=== PATIENT | female | born 1995 | race Caucasian/White ===

== ENCOUNTER 2017-11-19 20:51 | Inpatient (IN) | payer OTHER ==
[~2017-11-19] VITALS: Ht 170.2 cm; Wt 116.4 kg
[2017-11-19] MEDS: LACTATED RINGER'S 1000ML 1,000 ML IV PRN (22:16)
[2017-11-19 22:20] VITALS: Ht 170.2 cm; Wt 116.4 kg
[2017-11-19] MEDS ORDERED: PRENTAB26 PO (22:20)
[2017-11-19 22:29] LABS: HEMATOCRIT 34.9 % (37-47); HEMOGLOBIN 12.1 g/dL (12.0-16.0); MEAN CELL VOLUME 82.9 fL (80-100); MEAN CORPUSCULAR HEMOGLOBIN 28.7 pg (25-34); MEAN CORPUSCULAR HGB CONC 34.7 g/dl (32-36); MEAN PLATELET VOLUME 10.2 fL (7.4-10.4); PLATELET COUNT 241 K/uL (130-400); RED CELL DISTRIBUTION WIDTH CV 14.2 % (11.5-14.5); RED CELL DISTRIBUTION WIDTH SD 42.7 fL (36.4-46.3); WHITE BLOOD COUNT 15.06 K/uL (4.8-10.8)
--- NOTE | 2017-11-20 00:14 | Progress Note ---
Progress Note Date of Service Nov 20, 2017. Progress Note Admit Note 20 P0000 at 41.1 weeks admitted in labor with contractions every 2-3 minutes. FHT Cat 1. Cervix 4/70/-2/posterior/vertex. SROM clear fluid GBS negative. Will admit in labor.
[2017-11-20] MEDS ORDERED: FENTANYL CITRATE INJ 50 MCG/1 ML 2 ML VIAL ONE (05:24)
[2017-11-20] MEDS ORDERED: BUPIVACAINE 0.25% 30 ML VIAL ONE (05:24)
[2017-11-20] MEDS ORDERED: EpHEDrine SULFATE INJ 50 MG/ML AMP ONE (05:24)
[2017-11-20] MEDS ORDERED: FENTANYL 2MCG/ML ROPIV 1.25MG/ML 100ML BAG EPI ONE (05:25)
[2017-11-20] MEDS ORDERED: LACTATED RINGER'S 1000ML 500 ML IV PRN ×2 (06:02→07:25)
[2017-11-20] MEDS ORDERED: NALOXONE HCL INJ 1 MG in SODIUM CHLORIDE 0.9% 1000ML 1,000 ML IV PRN (06:02)
[2017-11-20] MEDS: LACTATED RINGER'S 1000ML 1,000 ML IV SCH ×2 (06:13→09:50)
[2017-11-20] MEDS: LACTATED RINGER'S 1000ML 1,000 ML IV PRN (06:13)
[2017-11-20] MEDS ORDERED: EpHEDrine SULFATE INJ 50 MG/ML AMP IV PRN (06:15)
[2017-11-20] MEDS ORDERED: ONDANSETRON INJ 2 MG/ML 2 ML VIAL IV PRN (06:15)
[2017-11-20] MEDS ORDERED: NALOXONE HCL INJ 0.4 MG/1 ML VIAL/CARP IV PRN (06:15)
[2017-11-20] MEDS ORDERED: NALBUPHINE HCL INJ 10 MG/ML AMP IV PRN (06:15)
[2017-11-20] MEDS ORDERED: PROMETHAZINE HCL INJ 25 MG in SODIUM CHLORIDE 0.9% 50ML 50 ML IV PRN (06:15)
[2017-11-20] MEDS ORDERED: DiphenhydrAMINE HCL 50 MG/ML VIAL IV PRN (06:15)
[2017-11-20] MEDS: FENTANYL 2MCG/ML ROPIV 1.25MG/ML 100ML BAG EPI PRN ×2 (07:08→14:34)
[2017-11-20] MEDS ORDERED: OXYTOCIN 30 UNITS/500ML NSS IV PRN ×2 (07:30→15:30)
[2017-11-20] MEDS ORDERED: CEFAZOLIN IV 2,000 MG in SYRINGE 0 ML IV SCH (12:00)
[2017-11-20] MEDS ORDERED: METHYLERGONOVINE MALEATE 0.2 MG/ML AMP ONE (14:40)
[2017-11-20] MEDS ORDERED: DIPHTHERIA/TETANUS/PERTUSSIS 0.5 ML SYR/VIAL IM. ONE (15:30)
[2017-11-20] MEDS ORDERED: OXYCODONE/ACETAMINOPHEN 5-325 TAB PO PRN (15:30)
[2017-11-20] MEDS ORDERED: HYDROCORTISONE ACETATE 25 MG SUPP PR PRN (15:30)
[2017-11-20] MEDS ORDERED: BENZOCAINE 20% AER SPR 82.5 GM CAN EXT PRN (15:30)
[2017-11-20] MEDS ORDERED: METHYLERGONOVINE MALEATE 0.2 MG/ML AMP IM ONE (15:30)
[2017-11-20] MEDS ORDERED: ACETAMINOPHEN 325 MG TAB PO PRN (15:30)
[2017-11-20] MEDS ORDERED: LANOLIN OINT EXT PRN (15:30)
[2017-11-20] MEDS ORDERED: SUPERCREAM 0.870 % 15GM JAR EXT PRN (15:30)
--- NOTE | 2017-11-20 16:31 | DELIVERY SUMMARY ---
DATE OF OPERATION: 11/20/2017 TIME OF DELIVERY: 14:46 DELIVERY OF PLACENTA: 14:50 DELIVERY NOTE: The patient is a 22-year-old 1 para 0 at 40 weeks gestation, who was admitted to labor and delivery on the evening of 11/19/2017 with spontaneous rupture of membranes that occurred at 08:20 p.m. Clear amniotic fluid was noted. She received an epidural for anesthesia. Oxytocin per protocol was used for labor augmentation. She reached complete dilation at 12:52 and pushed to delivery at 14:46. She delivered a viable female infant in the left occiput anterior position to an intact perineum. The baby was delivered and placed on patient's abdomen. Cord was clamped x2 and cut. Apgars were 9 at 1 minute and 9 at 5 minutes. Please see nursing notes for further baby assessment. Cord blood was then obtained and intact placenta with 3-vessel cord was delivered at 14:50. Oxytocin infusion was then begun. The lower uterine segment and vagina were cleared of any blood clots and debris. Due to more bleeding than expected, she was given Methergine 0.2 mg IM with excellent hemostasis noted. Once hemostasis was achieved, exploration of the perineum noted a second degree perineal laceration which was repaired with 2-0 and 3-0 Vicryl sutures in layers. Extremity hemostasis was noted. No other lacerations were seen. Estimated blood loss was 350 mL. All sponge, instrument and needle counts were found to be correct x2. Both patient and baby tolerated the delivery well and were in recovery with stable vital signs. I attest to the content of the Intraoperative Record and any orders documented therein. Any exception s are noted below.
--- NOTE | 2017-11-20 16:37 | Anesthesia Procedure Note ---
Anesthesia Epidural Removal Nt Date & Time Nov 20, 2017 at 16:36 Vital Signs Pain Intensity: 0.0 Notes Mental Status: alert / awake / arousable, participated in evaluation Nausea / Vomiting: adequately controlled Pain: adequately controlled Airway Patency, RR, SpO2: stable & adequate BP & HR: stable & adequate Hydration State: stable & adequate Neuraxial Anesthesia: was administered, sensory block is resolving Anesthetic Complications: no major complications apparent, pt satisfied with anesthetic care Epidural: removed without complications, with tip intact
[2017-11-20 18:10] VITALS: BP 131/87; PULSE 118; TEMP 36.5; O2SAT 97
[2017-11-20 19:45] VITALS: BP 133/85; PULSE 100; TEMP 37.1; O2SAT 98
[2017-11-20] MEDS: DOCUSATE SODIUM 100 MG CAP PO SCH (19:59)
[2017-11-21 00:35] VITALS: BP 128/81; PULSE 108; TEMP 36.5; O2SAT 97
[2017-11-21 04:30] VITALS: BP 132/79; PULSE 95; TEMP 36.4; O2SAT 98
[2017-11-21] MEDS: IBUPROFEN 600 MG TAB PO PRN ×3 (04:55→23:57)
[2017-11-21 06:35] LABS: HEMATOCRIT 33.6 % (37-47); HEMOGLOBIN 11.7 g/dL (12.0-16.0)
[2017-11-21] MEDS ORDERED: PRENATAL VITAMIN TAB PO SCH (08:00)
[2017-11-21 08:25] VITALS: BP 115/75; PULSE 99; TEMP 36.7; O2SAT 98
[2017-11-21] MEDS: PRENATAL VITAMIN TAB PO SCH (08:48)
[2017-11-21] MEDS: FERROUS SULFATE 325 MG TAB PO SCH (08:48)
[2017-11-21] MEDS: DOCUSATE SODIUM 100 MG CAP PO SCH ×2 (08:49→20:24)
--- NOTE | 2017-11-21 09:03 | OB/GYN Progress Note ---
POTATO LOADER Progress Note Date of Service: Nov 21, 2017. Patient is seen and examined. She feels well, no complaints. Ambulating without dizziness Voiding without difficulty Tolerating regular diet with out N&V Bleeding is minimal No fever/ chills/ CP/ SOB/ N&V/ Leg pain Breast feeding without problems Date Time Temp Pulse Resp B/P (MAP) Pulse Ox O2 Delivery O2 Flow Rate FiO2 11/21/17 04:30 36.4 95 18 132/79 (96) 98 Room Air 11/21/17 00:35 97 Room Air 11/21/17 00:35 36.5 108 20 128/81 (97) 97 Room Air 11/20/17 19:45 37.1 100 20 133/85 (101) 98 Room Air 11/20/17 18:10 36.5 118 20 131/87 (102) 97 Room Air 11/20/17 18:10 Room Air Last 24 Hours Test 11/21/17 06:07 Hemoglobin 11.7 g/dL Hematocrit 33.6 % PE: General: Alert, orientedx3, NAD Abd: soft, NT, fundus firm, below Umbilicus Perineum intact, Lochia rubra minimal Ext; NT, no edema AP: 22 yo s/p , ppd# 1 VSS Afebrile doing well Continue routine care All questions were answered
[2017-11-21 13:20] VITALS: BP 132/85; PULSE 108; TEMP 36.5; O2SAT 98
[2017-11-21 16:00] VITALS: BP 117/79; PULSE 101; TEMP 36.9
[2017-11-21] MEDS ORDERED: BISACODYL 5 MG TABEC PO SCH (20:00)
[2017-11-22] VITALS: BP 136/80
[2017-11-22 06:38] LABS: BASO % 0.1 %; BASO ABS # 0.02 K/uL (0-0.2); EOS % 2.5 %; EOS ABS # 0.35 K/uL (0-0.5); HEMATOCRIT 29.8 % (37-47); HEMOGLOBIN 10.1 g/dL (12.0-16.0); IG# 0.19 K/uL (0.00-0.02); LYMPH % 24.5 %; LYMPH ABS # 3.41 K/uL (1.2-3.4); MEAN CELL VOLUME 84.7 fL (80-100); MEAN CORPUSCULAR HEMOGLOBIN 28.7 pg (25-34); MEAN CORPUSCULAR HGB CONC 33.9 g/dl (32-36); MEAN PLATELET VOLUME 9.7 fL (7.4-10.4); MONO % 8.7 %; MONO ABS # 1.21 K/uL (0.11-0.59); NEUT % 62.8 %; NEUT ABS # 8.72 K/uL (1.4-6.5); PLATELET COUNT 238 K/uL (130-400); RED CELL DISTRIBUTION WIDTH CV 14.6 % (11.5-14.5); RED CELL DISTRIBUTION WIDTH SD 44.6 fL (36.4-46.3)
[2017-11-22] MEDS ORDERED: BISACODYL 10 MG SUPP PR PRN (07:00)
[2017-11-22 07:20] VITALS: BP 117/73; PULSE 102; TEMP 36.5; O2SAT 98
[2017-11-22] MEDS: FERROUS SULFATE 325 MG TAB PO SCH (08:42)
[2017-11-22] MEDS: DOCUSATE SODIUM 100 MG CAP PO SCH (08:42)
[2017-11-22] MEDS: PRENATAL VITAMIN TAB PO SCH (08:42)
[2017-11-22] MEDS: IBUPROFEN 600 MG TAB PO PRN (08:43)
--- NOTE | 2017-11-22 11:31 | OB/GYN Progress Note ---
NURSING HOME ASSISTANT Progress Note Date of Service: Nov 22, 2017. Patient is seen and examined. She feels well, no complaints. Likes to be discharged. Ambulating without dizziness Voiding without difficulty Tolerating regular diet with out N&V Bleeding is minimal No fever/ chills/ CP/ SOB/ N&V/ Leg pain Breast feeding without problems Discussed contraception with patient in details. Abstinence for 6 weeks, BCP, progestin only pills, Nexplanon, IUD's, Mirena and Pargard. She likes to get Mirena Date Time Temp Pulse Resp B/P (MAP) Pulse Ox O2 Delivery O2 Flow Rate FiO2 11/22/17 07:20 Room Air 11/22/17 07:20 36.5 102 18 117/73 (88) 98 Room Air 11/22/17 00:00 18 136/80 (98) Room Air 11/22/17 00:00 Room Air 11/21/17 16:00 Room Air 11/21/17 16:00 36.9 101 20 117/79 (92) Room Air 11/21/17 13:20 36.5 108 16 132/85 (101) 98 Room Air Last 24 Hours Test 11/22/17 06:08 White Blood Count 13.90 K/uL Red Blood Count 3.52 M/uL Hemoglobin 10.1 g/dL Hematocrit 29.8 % Mean Corpuscular Volume 84.7 fL Mean Corpuscular Hemoglobin 28.7 pg Mean Corpuscular Hemoglobin Concent 33.9 g/dl Platelet Count 238 K/uL Mean Platelet Volume 9.7 fL Neutrophils (%) (Auto) 62.8 % Lymphocytes (%) (Auto) 24.5 % Monocytes (%) (Auto) 8.7 % Eosinophils (%) (Auto) 2.5 % Basophils (%) (Auto) 0.1 % Neutrophils # (Auto) 8.72 K/uL Lymphocytes # (Auto) 3.41 K/uL Monocytes # (Auto) 1.21 K/uL Eosinophils # (Auto) 0.35 K/uL Basophils # (Auto) 0.02 K/uL RDW Standard Deviation 44.6 fL RDW Coefficient of Variation 14.6 % Immature Granulocyte % (Auto) 1.4 % Immature Granulocyte # (Auto) 0.19 K/uL PE: General: Alert, orientedx3, NAD Abd: soft, NT, fundus firm, below Umbilicus Perineum intact, Lochia rubra minimal Ext; NT, no edema AP: 22 yo s/p , ppd# 2 VSS Afebrile doing well Continue routine care All questions were answered D/C home , f/u in office
--- NOTE | 2017-11-22 11:32 | Discharge Instructions ---
Discharge Instructions Date of Service Nov 22, 2017. Admission Reason for Admission: Check Rupture Discharge Discharge Diagnosis / Problem: Discharge Goals Goal(s): Routine recovery after delivery Medications Continue Dispensed Medications: lansinoh Activity Recommendations Activity Limitations: as noted below ACTIVITY RECOMMENDATIONS: * Gradual return to full activity over the next 2-3 weeks. * No lifting - nothing heavier than baby over the next 2-3 weeks. * Do not engage in vigorous exercise, sexual activity or sports until cleared by your physician. * Do not drive or operate any motorized equipment until cleared by your physician. * You may shower/bathe daily. BREAST CARE: If you are not breast feeding: * Wear a supportive bra 24 hours a day for one to two weeks. * Avoid stimulating your breasts and nipples as much as possible during the first few weeks after delivery. * When taking a shower, have the warm water hit your back, not breasts. * When your breasts feel full, apply ice packs. Usually three to four times a day helps ease the discomfort. * Take a mild pain medication (Tylenol/Motrin) when you are uncomfortable. If breast feeding: * Use breast milk to lubricate nipples. Lansinoh cream may be used for sore nipples. You do not need to remove cream prior to breast feeding. If using a different brand of cream, check the label for directions regarding removal of cream prior to nursing. * Wear a supportive bra. * If having problems with breasts or breast feeding, call a security system sales consultant or your health care provider. EPISIOTOMY CARE: After delivery, if you have an episiotomy (stitches), the following steps will ease discomfort and aid healing. * For the first 24 hours after delivery, place ice packs next to your episiotomy to help reduce swelling. * After the first 24 hour-period, sitz baths, either portable or in the tub, are suggested. A shower with a shower arm sprayed over the episiotomy may be comforting. * Arlene care should be done after each voiding and bowel movement. Squirt warm water from a plastic bottle over the perineum (region of the body between the anus and urinary opening) and pat dry. * Use Dermoplast to ease discomfort. Shake container. [place] directly over the episiotomy. * Place a Tucks on a clean sanitary pad next to your episiotomy. OVER THE COUNTER MEDICATION: * For discomfort or pain, you may use Acetaminophen (Tylenol), Ibuprofen (Advil ), or Naproxen (Aleve) following the package directions. * For constipation you may use Colace following the package directions. SPECIAL CARE INSTRUCTIONS: When you are discharged from the hospital, it is important for you to follow the instructions listed below: * During the first week at home, you should be able to care for yourself and your baby. In addition, the usual light household activities are encouraged. * Limit your activities to the way you feel. Do not try to clean the house or move furniture. Be sensible. * If you actively engage in sports and have done so up until the time of your delivery, you may resume these activities as soon as you feel able. This may take up to one month or even longer. Use good judgment. * Continue to take your vitamins for at least six weeks after the of your baby. * Your diet need not be limited unless you were on a special diet before your delivery. Breast-feeding mothers need around 2500 calories per day and at least 64-80 ounces of fluid per day (8 to 10 glasses). * You should eat foods from the four major food groups. Crash diets or fad diets are to be avoided. Eating lean meats, fresh fruits and vegetables, low-fat dairy products, high fiber foods and a regular exercise program, will help you get back to your pre- weight without putting your health at risk. * Constipation is sometimes a problem after delivery. Take a mild laxative as needed. If breast feeding, Milk of Magnesia is acceptable to use. You may use a suppository or Fleets enema if no episiotomy. * A daily shower or tub bath is suggested. Be sure to thoroughly and gently dry the perineum. * A bloody vaginal discharge will usually continue until around four weeks post . A small amount of bleeding may continue for as long as six weeks. Vaginal discharge changes from the bright red bleeding after delivery to pink then brownish and finally yellowish-pink before becoming white and disappearing. * Bleeding may increase with activity. Your first period may come in 4-8 weeks. If you are breast feeding, your period may be delayed even longer. * Noble (sex) can begin whenever both you and your partner feel comfortable and do not have any form of genital infection. It is recommended that you wait until after your return appointment and discuss with your physician. If you have questions, please talk to your health care practitioner. A condom should be used to prevent infection and . * Foreplay, gentle intercourse and lubrication is very important the first several times to prevent pain. A water-based lubricant such as K-Y jelly or Astroglide may be used. * Tampons may be used six weeks after delivery. * Douching should be avoided for 6 weeks after delivery. * If you have RH negative blood and your baby is RH positive, you will receive RHOGAM by injection prior to discharge. The nurse will give you a card to keep with you that has the date and place that you received RHOGAM after delivery. * During your care, you had a Rubella screen done to check for the presence of rubella antibodies in your blood. If your test was negative, you will receive a Rubella vaccine prior to discharge. This vaccine may cause a fever, soreness at the injection site and flu-like symptoms. If these symptoms persist, notify your health care practitioner. is not advised for three months after a Rubella vaccine. There is a higher chance of having a baby with defects if conceived within three months of getting the vaccine. * If you were discharged 24 hours from delivery or before 48 hours: Visiting nurses will come to your home 48 hours after discharge to assess you and your baby. The visiting nurse will meet with you while you are in the hospital to arrange a time and get directions to your home. * Verbalizes understanding of car seat law as reviewed with patient nursing. * Car Seat hand-out given and reviewed with patient by nursing. * Shaken baby information reviewed with patient by nursing. Call you doctor if: * Heavy bleeding (saturating several pads an hour) or passing clots the size of your fist. * A fever >101 degrees F (38.3 degrees C) on two occasions four hours apart and/or chills. * Unusual pain in the pelvic or vaginal areas. * "Baby Blues" lasting longer than two weeks. If you have any questions or concerns, call your health care practitioner at . FOLLOW-UP VISIT: * Please call the office at to schedule a 6 week examination. It is important you keep this appointment. * It is important for you to make arrangements for either yearly or twice yearly check-ups thereafter. . Current Hospital Diet Patient's current hospital diet: Regular OB Diet Discharge Diet Recommended Diet: Regular Diet Pending Studies Studies pending at discharge: no Medical Emergencies . Who to Call and When: Medical Emergencies: If at any time you feel your situation is an emergency, please call 911 immediately. . Non-Emergent Contact Non-Emergency issues call your: Specialist Call Non-Emergent contact if: you have a fever, temperature is above 100.5, your pain is not controlled, your pain is worsening . . "Provider Documentation" section prepared by Nicolas Brewer. .
[2017-11-22 13:40] VITALS: BP_DIAS 73; PULSE 102; TEMP 36.5
== END 2017-11-22 13:40 | disposition home or self-care (01) | DRG 775 ==
LOC: C.LD 20:51 → C.OPB 20:51 → C.LD 21:55 → C.OPB 21:55 → C.OBG 11-20 18:55
PROVIDERS: ADMIT Obstetrics & Gynecology; ATTEND Obstetrics & Gynecology
PROC: 0KQM0ZZ Repair Perineum Muscle, Open Approach (ICD-10-PCS; principal; 2017-11-20)
PROC: 10E0XZZ Delivery of Products of Conception, External Approach (ICD-10-PCS; principal; 2017-11-20)
DX: O99.214 Obesity complicating childbirth (principal); O42.02 Full-term premature rupture of membranes, onset of labor within 24 hours of rupture; O76 Abnormality in fetal heart rate and rhythm complicating labor and delivery; O70.1 Second degree perineal laceration during delivery; Z3A.40 40 weeks gestation of pregnancy; Z37.0 Single live birth; E66.9 Obesity, unspecified

== ENCOUNTER 2023-07-29 12:08 | Inpatient (IN) ==
[2023-07-29] MEDS ORDERED: LIDOCAINE 1% LOCAL 20 ML VIAL INFIL PRN (12:14)
[2023-07-29] MEDS ORDERED: OXYTOCIN 30 UNITS/NSS 30 UNITS/500 ML BAG IV PRN ×3 (12:14→23:21)
[2023-07-29] MEDS ORDERED: FAMOTIDINE 10 MG TABLET PO PRN (12:31)
[2023-07-29] MEDS ORDERED: MECLIZINE HCL 25 MG TAB PO PRN (12:31)
--- NOTE | 2023-07-29 12:40 | History & Physical Report ---
Date of Service July 29, 2023 Assessment & Plan (1) Obesity affecting in third trimester, antepartum: Plan: 28-year-old -0-0-2 at 39 weeks of gestation presenting today for scheduled induction of labor at term for class III obesity, Vital signs stable afebrile, heart rate reassuring, GBS negative, Cervix favorable, head is engaged Plan to admit, monitor, labs, IV fluids and oxytocin per protocol, All questions were answered. (2) History of pre-eclampsia: (3) Depression during in third trimester: Admission and Anticipated Discharge Date Admission Date: July 29, 2023 History of Present Illness Primary Care Provider: Davis Gonzalez MD Patient is a 28-year-old -0-0-2 at 39 weeks of gestation who was scheduled for induction of labor for class III about obesity. She denies fever chills, chest pain shortness of breath, contractions, leakage of fluid and vaginal bleeding. She reports good movements. Her was complicated by 1) Class III obesity, 2) depression, on Celexa and stable. 3) history of preeclampsia in second , induced at 37 weeks GBS negative Allergies Allergy/AdvReac Type Severity Reaction Status Date / Time No Known Allergies Allergy NONE Verified 01/01/23 18:14 Home Medications Medication Instructions Recorded Confirmed Type famotidine 10 mg tablet (Heartburn 10 mg PO BID PRN 01/01/23 01/01/23 History Relief (famotidine)) HEARTBURN/INDIGESTION meclizine 25 mg tablet 25 mg PO TID PRN Dizziness 01/01/23 01/01/23 History sertraline 100 mg tablet 100 mg PO DAILY 01/01/23 01/01/23 History Patient History Medical History Obesity Pre-eclampsia affecting , antepartum Surgical History Hx of wisdom tooth extraction Social History Smoking Status: Never smoker Second Hand Exposure: Yes; Do You Dip or Chew Tobacco: No; Hx Alcohol Use: No Hx Substance Use: No Preferred Language: Azeri Communication Ability: Effective Specification Manager Required: No Beliefs That Will Affect Care: None marital status: Current Living Situation: Family Current Living Situation Comment: Pt lives with and daughter Feels Safe at Home: Yes Assistive Devices: None OB History Full-term 's in 2018 and 2019 by myself 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 History No history of STDs Review of Systems as per Subjective / HPI Physical Exam Constitutional: WD/WN, vitals as above well developed, well nourished, + obese and comfortable Genitourinary: normal external appearance OB Exam Abdomen: + vertex Manual OB Exam: + cervical dilation 2 cm, + cervical effacement 50% and + station -1 OB Exam Monitor Tracing: + external uterine monitor used and + ca tegory I Results & Data Vital Signs (Past 12 Hours) Vital Signs Pulse BP 07/29/23 12:21 120 H 118/69 (1) Obesity affecting in third trimester, antepartum Obesity type affecting : unspecified obesity Qualified Code(s): O99.213 - Obesity complicating , third trimester
[2023-07-29] MEDS ORDERED: BUTORPHANOL TARTRATE 1 MG/ML VIAL IV PRN (12:56)
[2023-07-29 12:57] LABS: Hematocrit (blood only) 35.4 % (37.0-47.0); Hemoglobin 11.8 g/dl (12.0-16.0); Mean Corpuscular Hemoglobin 26.6 pg (25.0-34.0); Mean Corpuscular Hgb Conc 33.3 g/dL (32.0-36.0); Mean Corpuscular Volume 79.7 fL (80.0-100.0); Mean Platelet Volume 9.9 fL (9.4-12.4); Platelet Count 283 K/uL (130-400); RDW Coefficient of Variation 14.7 % (11.5-14.5); RDW Standard Deviation 42.4 fL (36.4-46.3); Red Blood Count 4.44 M/uL (4.20-5.40); White Blood Count 12.49 K/ul (4.8-10.8)
[2023-07-29 13:16] LABS: Albumin Level 3.6 gm/dl (3.4-5.0); Anion Gap 12 (3-11); Bilirubin,Total 0.3 mg/dl (0.2-1.0); Calcium 8.5 mg/dl (8.6-10.3); Carbon Dioxide 19 mmol/L (21-32); Chloride 104 mmol/L (98-107); Potassium 3.7 mmol/L (3.5-5.1); Sodium 135 mmol/L (136-145)
[2023-07-29 13:22] LABS: Alanine Aminotransferase 8 U/L (7-52); Albumin Globulin Ratio 1.1 (0.9-2); Alkaline Phosphatase 113 U/L (34-104); Aspartate Aminotransferase 6 U/L (13-39); BUN Creatinine Ratio 25.5 (10-20); Blood Urea Nitrogen 12 mg/dl (6-23); Creatinine Clr Calc Pharmacy 251.8 ml/min; Est GFR (African American) > 150.0 ml/min; Est GFR (Non-African American) 136.3 ml/min; Globulin 3.3 gm/dl (2.5-4.0); Glucose 127 mg/dl (70-99(Fasting)); Total Protein 6.9 gm/dl (6.0-8.3)
[2023-07-29] MEDS: LACTATED RINGER'S 1,000 ML IV PRN ×3 (13:25→18:46)
[2023-07-29] MEDS ORDERED: fentANYL 2 MCG/ML BUPIVacaine 0.125%-NSS 100ML BAG ONE (17:33)
[2023-07-29] MEDS ORDERED: ePHEDrine sulfate 50 MG/ML AMP ONE (17:33)
[2023-07-29] MEDS ORDERED: fentaNYL citrate PF 100 MCG/2 ML VIAL ONE (17:33)
[2023-07-29] MEDS ORDERED: SODIUM CHLORIDE 0.9% PF INJ 10 ML VIAL ONE (17:34)
[2023-07-29] MEDS ORDERED: BUPIVACAINE 0.25% PF 30 ML VIAL ONE (17:34)
[2023-07-29] MEDS ORDERED: LIDOCAINE 2%/EPINEPHRINE 1:200,000 20 ML PF ONE (17:34)
--- NOTE | 2023-07-29 17:53 | Anesthesiology Consultation ---
Date of Service July 29, 2023 Assessment & Plan Chart Review Chart Review: Acceptable Risk for Labor Epidural Consults Requested none History Height/Weight Height: 5 ft 7 in Weight: 127.459 kg Allergies Allergy/AdvReac Type Severity Reaction Status Date / Time No Known Allergies Allergy NONE Verified 07/29/23 12:42 Medications Home Medications Medication Instructions Recorded Confirmed Last Taken famotidine 10 mg tablet (Heartburn 10 mg PO BID PRN 01/01/23 07/29/23 07/27/23 Relief (famotidine)) HEARTBURN/INDIGESTION meclizine 25 mg tablet 25 mg PO TID PRN Dizziness 01/01/23 07/29/23 Unknown sertraline 100 mg tablet 100 mg PO DAILY 01/01/23 07/29/23 07/28/23 Active Medications Generic Name Dose Route Start Last Admin Trade Name Freq PRN Reason Stop Dose Admin Lactated Ringer's 1,000 mls @ 150 mls/hr 07/29/23 12:14 07/29/23 17:46 Lr IV 07/31/23 12:13 999 mls/hr .[id number] PRN Administration L&D Protocol Protocol Oxytocin 30 units in 500 mls @ 8 mls/hr 07/29/23 12:16 07/29/23 16:50 Pitocin 30 Units/Nss IV 07/31/23 12:15 0.48 units/hr .Q24H PRN 8 mls/hr Labor Induction/Augmentation Titration Protocol 0.48 UNITS/HR Past Medical History Medical History (Updated 07/29/23 @ 12:41 by Humaira Mireles RN) Depression with hx of self harm (as teenager) on medications currently Obesity Pre-eclampsia affecting , antepartum Past Surgical History Surgical History Hx of wisdom tooth extraction Social History Smoking Status: Never smoker Do You Dip or Chew Tobacco: No Hx Alcohol Use: No Hx Substance Use: No substance use type: does not use Review of Systems Constitutional: as per Subjective / HPI Physical Exam Vital Signs Last Vital Signs Temp 36.8 C 07/29/23 15:10 Pulse 106 H 07/29/23 17:30 Resp 20 07/29/23 15:10 BP 124/69 07/29/23 17:30 Constitutional WD/WN, vitals as above well developed, well nourished, + obese and comfortable Genitourinary normal external appearance OB Exam Abdomen: + vertex Manual OB Exam: + cervical dilation + 2 cm, + cervical effacement + 50% and + station + -1 OB Exam Monitor Tracing: + external uterine monitor used and + category I Testing Laboratory Results 07/29/23 12:38 07/29/23 12:38 Blood Type O Positive 07/29/23 12:38 Antibody Screen NEGATIVE 07/29/23 12:38
[2023-07-29] MEDS ORDERED: LIDOCAINE 2%/EPINEPHRINE 1:200,000 20 ML PF EPI STA (17:57)
[2023-07-29] MEDS ORDERED: BUPIVACAINE 0.25% PF 30 ML VIAL EPI PRN (17:57)
[2023-07-29] MEDS ORDERED: LIDOCAINE 2% MPF LOCAL 5 ML VIAL EPI PRN (17:57)
[2023-07-29] MEDS ORDERED: NALBUPHINE HCL 5 MG in SYRINGE 0 ML IV PRN (17:57)
[2023-07-29] MEDS ORDERED: SODIUM CHLORIDE 0.9% PF INJ 10 ML VIAL EPI STA (17:57)
[2023-07-29] MEDS ORDERED: NALOXONE HCL 1 MG in SODIUM CHLORIDE 0.9% 1,000 ML IV PRN (17:57)
[2023-07-29] MEDS ORDERED: fentaNYL citrate PF 100 MCG/2 ML VIAL EPI STA (17:57)
[2023-07-29] MEDS ORDERED: NALOXONE HCL 0.4 MG/1 ML VIAL/CARP IV PRN (17:57)
[2023-07-29] MEDS ORDERED: fentaNYL citrate PF 100 MCG/2 ML VIAL EPI PRN (17:57)
[2023-07-29] MEDS ORDERED: fentANYL 2 MCG/ML BUPIVacaine 0.125%-NSS 100ML BAG EPI PRN (17:57)
[2023-07-29] MEDS ORDERED: ePHEDrine sulfate 50 MG/ML AMP IV PRN (17:57)
[2023-07-29] MEDS ORDERED: diphenhydrAMINE 50 MG/ML VIAL IV PRN (17:57)
[2023-07-29] MEDS ORDERED: SODIUM CHLORIDE 0.9% PF INJ 10 ML VIAL EPI PRN (17:57)
[2023-07-29] MEDS ORDERED: BUPIVACAINE 0.25% PF 30 ML VIAL EPI STA (17:57)
[2023-07-29] MEDS ORDERED: ROPIVACAINE 0.5% PF 5 MG/ML 20 ML VIAL EPI PRN (17:57)
--- NOTE | 2023-07-29 19:09 | Obstetrical Progress Note ---
Date of Service July 29, 2023 Assessment & Plan Admission and Anticipated Discharge Date Admission Date: July 29, 2023 Subjective Patient has received epidural for pain and now comfortable. VE; 4/ 50%/-1, AROM'ed clear fluid FHR categ I [place] ctxs q 2-4 min, Oxytocin is at 10 miu/min Continue to monitor closely. Results & Data Vital Signs (Past 12 Hours) Vital Signs Temp Pulse Resp BP Pulse Ox 07/29/23 19:04 104 H 106/53 L 07/29/23 19:03 104 H 99 07/29/23 19:02 94 H 116/56 L 07/29/23 19:00 103 H 112/55 L 07/29/23 18:58 98 07/29/23 18:58 99 H 07/29/23 18:58 94 H 113/58 L 07/29/23 18:56 96 H 115/59 L 07/29/23 18:54 96 H 114/58 L 07/29/23 18:53 95 H 98 07/29/23 18:52 97 H 113/59 L 07/29/23 18:50 96 H 113/59 L 07/29/23 18:48 98 07/29/23 18:48 98 H 07/29/23 18:48 100 H 108/58 L 07/29/23 18:46 102 H 106/55 L 07/29/23 18:44 99 H 107/58 L 07/29/23 18:43 101 H 98 07/29/23 18:42 95 H 101/55 L 07/29/23 18:40 99 H 105/59 L 07/29/23 18:38 102 H 109/55 L 99 07/29/23 18:36 99 H 107/58 L 07/29/23 18:34 94 H 109/56 L 07/29/23 18:33 97 H 99 07/29/23 18:32 96 H 102/55 L 07/29/23 18:30 20 07/29/23 18:30 104 H 107/56 L 07/29/23 18:28 99 07/29/23 18:28 109 H 07/29/23 18:28 104 H 106/59 L 07/29/23 18:26 92 H 112/59 L 07/29/23 18:24 100 H 109/55 L 07/29/23 18:23 101 H 99 07/29/23 18:22 90 90/47 L 07/29/23 18:20 20 07/29/23 18:20 99 H 99/54 L 07/29/23 18:18 99 07/29/23 18:18 102 H 07/29/23 18:18 98 H 109/53 L 07/29/23 18:16 102 H 110/54 L 07/29/23 18:14 101 H 122/58 L 07/29/23 18:13 105 H 100 07/29/23 18:08 103 H 99 07/29/23 18:03 93 H 100 07/29/23 17:58 95 H 99 07/29/23 17:53 94 H 99 07/29/23 17:30 106 H 124/69 07/29/23 16:30 96 H 137/60 07/29/23 15:29 100 H 113/59 L 07/29/23 15:10 36.8 C 20 07/29/23 14:29 102 H 119/66 07/29/23 13:29 109 H 123/58 L 07/29/23 12:24 36.5 C 20 07/29/23 12:21 120 H 118/69
--- OUTSIDE RECORDS SUMMARY | 2023-07-29 20:47 | External Medical Summary | Summary of Care ---
Author Name Unknown Organization [facility] Address [address] [place] [address] Phone [phone] Care Team Providers Care Center Machine Operator Name Role Phone Unavailable Primary Care Provider Unavailabl e Reason for Visit * Reason Comments Non Stress Test Return Visit Encounter Details Date Type Department Care Team (Late st Contact Info) Description 07/24/2023 11:00 AM EST Office Visit Gynecology/Obstetric s Sohail'scout Boyer [address] [facility] [place] [address] Flavio Rodriguez MD [address] [place] [address] Boyer, Non Stress Tests Ever [address] [employer] [place] [address] Obesity affecting , antepartum, unspecified obesity type*; Supervision of high risk in third trimester; Depression complicating , antepartum; History of pre-eclampsia; Family history of defect Allergies No known active allergiesdocumented as of this encounter (statuses as of 07/24/2023) Medications Medication Sig Dispensed Refills Start Date End Date Status Sertraline HCl 100 MG Oral Tablet Take 1 Tablet by mouth in the morning. 0 Active Famotidine 10 MG OR TABS Take 0.5 Tablets by mouth in the morning and 0.5 Tablets before bedtime. 0 Active Meclizine HCl 12.5 MG Oral Tablet (Antivert) Take 1 Tablet by mouth 3 times a day as needed. 0 Active 19 29-1 MG Oral Tablet Chewable Take by mouth. 0 Active Breast Pump Pump daily while 1 Each 0 03/18/2023 Active documented as of this encounter (statuses as of 07/24/2023) Active Problems Problem Noted Date Diagnosed Date Health counseling 01/30/2023 Overview: Problem Action Taken Date entered Entered by Date resolved Current needs or questions Patient denies having any current needs or questions 01/30/2023 Shanelle Cheney RN 01/30/2023 Problem Action Taken Date entered Entered by Date resolved Current needs or questions Patient denies having any current needs or questions 02/27/2023 Shanelle Cheney RN 02/27/2023 Problem Action Taken Date entered Entered by Date resolved Need for baby supplies breast pump order sent 03/18/2023 Shanelle Cheney RN 03/18/2023 Problem Action Taken Date entered Entered by Date resolved Current needs or questions Patient denies having any current needs or questions 05/26/2023 Shanelle Cheney RN 05/26/2023 Problem Action Taken Date entered Entered by Date resolved Current needs or questions Patient denies having any current needs or questions 06/26/2023 Shanelle Cheney RN 06/26/2023 Problem Action Taken Date entered Entered by Date resolved Current needs or questions Patient denies having any current needs or questions 07/10/2023 Shanelle Cheney RN 07/10/2023 Problem Action Taken Date entered Entered by Date resolved Current needs or questions Patient denies having any current needs or questions 07/17/2023 Shanelle Cheney RN 07/17/2023 Class 3 obesity 12/29/2022 History of pre-eclampsia 12/29/2022 Overview: Preeclampsia with second May 2020 Induced at 37 weeks On antihypertensive meds for 6 weeks post Taking low dose ASA 81 mg PO daily Baseline Preeclampsia Labs Lab Results Component Value Date/Time PLATELET AUTO - [facility] 343 12/29/2022 03:40 PM CREATININE - [facility] 0.6 12/29/2022 03:40 PM AST - [facility] 13 12/29/2022 03:40 PM ALT - [facility] 17 12/29/2022 03:40 PM URINE PROTEIN, 24 HOUR - [facility] 60 01/30/2023 08:36 AM URINE PROTEIN, 24HR URN - [facility] 12 01/30/2023 08:36 AM BP Readings from Last 10 Encounters: 02/27/23 118/70 01/30/23 120/74 12/29/22 120/78 05/07/21 112/78 05/03/20 156/100 04/30/20 134/76 04/26/20 128/80 04/23/20 132/86 04/18/20 124/76 04/04/20 120/80 Last Assessment & Plan: CONSIDERATIONS: Discussed that the overall recurrence rate for pre-eclampsia is 20%. The recurrence risk of pre-eclampsia is 5-7% if it was uncomplicated pre-eclampsia in the prior . If it was pre-eclampsia with severe features in the prior , the recurrence risk goes up to 30-65%. Explained to patient that risk factors for development of pre-eclampsia include the primigravid state, history of pre-eclampsia in previous , family history of pre-eclampsia, presence of chronic hypertension, increased BMI, multiple gestation, pre-existing maternal renal disease or diabetes, advanced maternal age, antiphospholipid syndrome and other coagulopathies, chronic maternal autoimmune disease, or prolonged interval between pregnancies. Discussed with patient that the risks associated with a diagnosis of pre- eclampsia which is not monitored and not managed appropriately include development of HELLP syndrome or eclampsia (seizures) and end organ damage to liver, brain, kidneys, or fetus (manifested by growth restriction or ), and even maternal . RECOMMENDATIONS: Recommend baseline pre-eclamptic labwork be done early in subsequent pregnancies to include CBC, AST/ALT, creatinine, and 24 hour total urine protein. Patients should be monitored closely in subsequent pregnancies for signs of pre-eclampsia and managed appropriately to reduce the incidence of associated maternal and risks. Reviewed that pre-eclampsia and HELLP are not preventable conditions. There is some evidence that daily ASA 81mg may decrease the risk for recurrence in patients with a history of pre-eclampsia prior to 34 weeks and we recommend that she proceed with starting this therapy after 12 weeks. Family history of defect 12/29/2022 Overview: Patient has a brother with cleft palate and cerebral palsy Last Assessment & Plan: Discussed etiology of the condition. Occurs in ~[id number] live births. Causes for cleft lip and palate include genetic syndromes, maternal exposures, multifactorial inheritance, Gurvinder-Eh sequence. May have associated anomalies in 35-65% of cases, most common may be spinal, cardiac or intracranial. About 60% are isolated. Ten percent may be chromosomal, 20% may be syndromic (>350 syndromes identified). If isolated, typically multifactorial inheritance. Maternal exposure that may play a role in development of cleft lip/palate may include ETOH, tobacco, infections, medications, or hyperthermia. Recurrence risk is 4- 6% with immediate family member with cleft lip and palate. Depression complicating , antepartum Overview: History of depression History of self harm: cutting Zoloft 100mg daily Reports a stable mood in . Denies any suicidal or homicidal ideation. Reports she has a good support system at home. Last Assessment & Plan: ANXIETY AND DEPRESSION CONSIDERATIONS: Untreated maternal anxiety and depression may be associated with an increased risk of multiple poor obstetrical outcomes including miscarriages, low weight, and delivery. Women with a history of anxiety or depression are at risk for recurrence both during and/or the period. Studies of first-trimester SSRI exposure do not demonstrate consistent data to support an increased risk for structural malformations. Anti-anxiety or depression medications have been associated with transient effects (withdrawal syndrome). RECOMMENDATIONS: Mental illness can and should be treated during when the benefits of treatment outweigh potential risks. Referral to behavioral health services as clinically indicated. Atypical squamous cells of u ndetermined significance (ASCUS) on Papanicolaou smear of cervix 10/13/2019 Overview: Pap 05/07/2021 (NILM) Pap 10/04/2019 (ASCUS, HPV+) Obesity affecting 10/04/2019 Overview: Pre gravid BMI: 44.6 Class 3 Lab Results Component Value Date/Time 50-G GESTATIONAL GLUCOSE, 1 HOUR - [facility] 154 (H) 01/30/2023 10:37 AM 100-G GESTATIONAL GLUCOSE, 1 HOUR - [facility] 134 02/06/2023 08:59 AM 100-G GESTATIONAL GLUCOSE, 2 HOUR - [facility] 112 02/06/2023 10:09 AM 100-G GESTATIONAL GLUCOSE, 3 HOUR - [facility] 99 02/06/2023 10:56 AM 100-G GESTATIONAL GLUCOSE, FASTING - [facility] 95 (H) 02/06/2023 07:56 AM Last Assessment & Plan: I reviewed the ultrasound with her. The overall estimated weight is consistent with the 20th percentile for the gestational age and the anatomy that was visualized appears unremarkable. It is limited due to the advanced gestational age. The amniotic fluid volume is normal at 12 cm fetus is in the vertex presentation. The biophysical profile is 8/8. I reviewed her negative maternal serum AFP screening and her low risk noninvasive screen in light of the normal ultrasound findings. , supervision, high-risk 10/04/2019 Overview: Flu and Tdap vaccines 05/26/23 Last Assessment & Plan: Tdap given in left deltoid today 03/05/2020. Charlotte Alba, ISAIAH Estimated Date of Delivery Comme nts Yes 08/05/2023 Based on last me nstrual period of 10/29/2022 documented as of this encounter (statuses as of 07/24/2023) Resolved Problems Problem Noted Date Diagnosed Date Resolved Date presentation, breech 06/12/2023 1 09/02/2022 Overview: 32 wks Abnormal GTT (glucose tolerance test) 02/02/2023 05/26/2023 Overview: Failed early 1 hour GTT; 3 hour GTT passed. Repeat 3 hour GTT at 28 weeks. Supervision of high-risk pre gnancy, unspecified trimester 01/02/2020 03/19/2020 Obesity in , antepartum 01/02/2020 03/19/2020 Eating disorder, unspecified 10/04/2019 04/18/2020 Overview: At age 18 patient states she was restricting food intake, she would not eat for 2-3 days at a time and then only have 1-2 bites a day after that. This continued for 4-5 months. She states since then she has periods of time when she will overeat until she feels like she needs to vomit and will eat 2-3 servings at a time. She never sought counseling during this time. Patient states she is conscious of this and eating smaller frequent meals and states she has had no episodes during this . She did not recall encountering this problem during her first . Class 2 obesity in adult 10/23/201711/2019 Overview: RECOMMENDATIONS: Class 2-BMI 35-39.9: Recommend restricting weight gain during to 11-20 pounds. Consider referral for nutrition consult. Recommend obtaining early Gestational Diabetes Mellitus screen and repeat again at 26-28 weeks if early screen is normal. Recommend Maternal Medicine ultrasound for anatomy screen at 20 weeks and for growth every 4 weeks after 24 weeks. If diagnosed with Gestational Diabetes Mellitus OR fetus is noted to be LGA, then recommend surveillance twice weekly to begin at 36 weeks and delivery by EDC. Supervision of normal first , antepartum 04/16/2017 11/20/2017 Overview: Patient received flu vaccine. 06/12/2017 Corinne Chun RN 09/25/2017 Tdap Vaccine administered per clinic protocol. Pt given VIS(vaccine information sheet) Corinne Chun RN OCP (oral contraceptive pills) initiation 04/16/2015 04/16/2017 Obesity, pediatric, BMI 95th to 98th percentile for age 0501/13/2015 10/23/2017 Anxiety state 05/06/2011 04/18/2020 documented as of this encounter (statuses as of 07/24/2023) Immunizations Name Administration Dates Next Due HPV Vaccine, 4-Valent 01/10/2015,05/29/2014,02/2014 Meningococcal Conjugate Vacc ine (Menactra/Menveo) 03/06/2014 SEASONAL INFLUENZA, PF, 6 M & Above, IM , (FLULAVAL or FLUZONE) 05/26/2023,06/12/2017 Seasonal Influenza, Split, I IV3, With Preserve, Inj 06/29/2013 TDAP (age 10 and older)(Boostrix) 2022,03/05/2020,09/25/2017,03/06 documented as of this encounter Social History Tobacco Use Types Packs/Day Years Used Date Smoking Tobacco: Former Cigarettes Q uit: 2013 Smokeless Tobacco: Never Alcohol Use Standard Drinks/Week Comments Not Currently 0 (1 standard drink = 0.6 oz pur e alcohol) PHQ-2 Answer Date Recorded PHQ-2 Score 1 04/28/2019 Hunger Vital Sign Answer Date Recorded Within the past 12 months, y ou worried that your food would run out before you got the money to buy more. Never true 12/11/19 23 Within the past 12 months, t he food you bought just didn't last and you didn't have money to get more. Never true 12/10/2022 Blanco Depression Scale Answer Date Recorded Blanco Depression Scale Total 13 06/12/2023 The thought of harming myself has occurred to me . Hardly ever 06/12/2023 Estimated Date of Delivery Comme nts Yes 08/05/2023 Based on last me nstrual period of 10/29/2022 Sex and Gender Information Value Date Recorded Sex Assigned at Female 12/10/2022 7:44 PM EDT Gender Identity Female 12/10/2022 7:44 PM EDT Sexual Orientation Bisexual 12/10/2022 7: 44 PM EDT Job Start Date Occupation Industry Not on file Not on file Not on file documented as of this encounter Last Filed Vital Signs Vital Sign Reading Time Taken Comments Blood Pressure 124/80 07/24/2023 10:54 AM EST Pulse - - Temperature - - Respiratory Rate - - Oxygen Saturation - - Inhaled Oxygen Concentration - - Weight 127.5 kg (281 lb) 07/24/2023 10:54 AM EST Height 170.2 cm (5' 7") 07/24/2023 10:54 AM EST Body Mass Index 44.01 07/24/2023 10:54 AM EST documented in this encounter Progress Notes * Flavio Rodriguez MD - 07/24/2023 11:26 AM EST Pt doing well No complaints NST; CAT1 for obesity Andrew for induction next week * Florecita Ware LPN - 07/24/2023 11:22 AM EST 38w2d Pt here for TAHIRA/NST documented in this encounter Plan of Treatment Upcoming Encounters Date Type Department Care Team (Late st Contact Info) Description 07/31/2023 11:15 AM EST Office Visit Gynecology/Obstetrics Moy Boyer [address] [place] [address] Ketty Diaz CRNP [address] [place] [address] Nan Boyer Stress Tests Ever [address] [place] [address] Health Maintenance Due Date Last Done Comments COVID-19 Vaccine (#1) 1997 Depression Screening 04/28/2020 04/28/2019 Pap Smear 05/07/2024 05/07/2021, 10/04/2019 DTaP,Tdap,and Td Vaccines (10 - Td or Tdap) 05/26/2033 05/26/2023, 03/05/2020, 09/25/2017, Additional history exists Hepatitis B Completed 02/16/1998, 01/1998, 1997 MENINGOCOCCAL (MENACTRA/MENVEO) Completed 03/06/2014, 03/06/2014 GARDASIL-HPV IMMUNIZATION SERIES Completed 01/10/2015, 05/29/2014, 03/06/2014 Gonorrhea / Chlamydia Screen Discontinued 12/29/2022, 05/07/2021, 10/04/2019, Additional history exists Influenza Vaccine (FLU shot) Completed 05/26/2023, 06/12/2017, 06/12/2017, Additional history exists Pneumococcal Vaccine: Pediatrics (0 to 5 Years) and At-Risk Patients (6 to 64 Years) Aged Out No longer eligible based on patient's age to complete this topic documented as of this encounter Medical Devices Not on filedocumented as of this encounter Visit Diagnoses Diagnosis Obesity affecting , antepartum, unspecified obesity type- Primary Supervision of high risk in third trimester Unspecified high-risk Depression complicating , antepartum Mental disorders of mother, antepartum History of pre-eclampsia Family history of defect Family history of congenital anomalies documented in this encounter
--- OUTSIDE RECORDS SUMMARY | 2023-07-29 20:47 | External Medical Summary ---
Author Name Unknown Address Unknown Organization K01:[facility] - [facility] [address] [facility] [address] Laboratory Report Ordering Provider Test Date Status TIAN ANDRADE 07/10/2023 11:55:37 Final Observation Date Value Abnormality Reference (Units ) Status Streptococcus agalactiae DNA [Presence] in Specimen by GREGOR with probe detection 07/10/2023 11:55:37 Negative Negative Final No Group B Streptococcus det ected by culture-enhanced PCR (amplified probe).
The collection of vaginal/rectal swab specimen combinations (FDA approved specimen type) is optimal for the detection of Group B Streptococcus. Single source collection (vaginal only or rectal only) or alternate specimen sources may lead to false negative results. Performing Location [facility] - [address] [facility] [address]
--- OUTSIDE RECORDS SUMMARY | 2023-07-29 20:47 | External Medical Summary | Summary of Care ---
Author Name Unknown Organization [facility] Address [address] [place] [address] Phone [phone] Care Team Providers Care It Business Systems Analyst Name Role Phone Unavailable Primary Care Provider Unavailabl e Reason for Visit * Reason Comments Ultrasound * Evaluate & Treat - Unlimited Visits (Within 10 days (routine)) - Authorized Specialty Diagnoses / Procedures Referred By Ben t Referred To Contact Obstetrics/Gynecology / Maternal Medicine Diagnoses Obesity affecting in third trimester, unspecified obesity type Supervision of high-risk , unspecified trimester Indigo Laura PA-C [address] [place] [address] Referral ID Status Reason Start Date Expiration Date Visits Requested Visits Authorized [id number] Authorized Specialty Services Required [phone] Encounter Details Date Type Department Care Team (Late st Contact Info) Description 06/29/2023 7:45 AM EDT Office Visit Sewage Disposal Engineer Obstetrics Maternal Medicine, [place] [address] [place] [address] Lloyd Ferreira MD [address] [place], [place] [id number] Class 3 obesity (HCC)*; Obesity affecting in third trimester, unspecified obesity type; Family history of defect; Depression complicating , antepartum Allergies No known active allergiesdocumented as of this encounter (statuses as of 06/29/2023) Medications Medication Sig Dispensed Refills Start Date [...] as of this encounter (statuses as of 06/29/2023) Active Problems Problem Noted Date Diagnosed Date presentation, breech 06/12/2023 Overview: 32 wks Health counseling 01/30/2023 Overview: Problem Action Taken [...] or questions 06/26/2023 Shanelle Cheney RN 06/26/2023 Class 3 obesity 12/29/2022 History of pre-eclampsia [...] Discussed etiology of the condition. Occurs in ~[id number] live births. Causes for cleft lip and [...] given in left deltoid today 03/05/2020. Charlotte Alba LPN Estimated Date of Delivery Comme nts Yes 08/05/2023 Based on last me nstrual period of 10/29/2022 documented as of this encounter (statuses as of 06/29/2023) Resolved Problems Problem Noted Date Diagnosed Date Resolved Date Abnormal GTT (glucose tolerance test) 02/02/2023 05/26/2023 [...] as of this encounter (statuses as of 06/29/2023) Immunizations Name Administration Dates Next Due HPV [...] money to get more. Never true 12/10/2022 Dover Depression Scale Answer Date Recorded Dover Depression Scale Total 13 06/12/2023 The thought [...] on file documented as of this encounter Progress Notes * Lloyd Ferreira MD - 06/29/2023 8:02 AM EDT MATERNAL MEDICINE VISIT Rosalba Chauhan is at 34w5d who presents to [facility] for an ultrasound and follow-up of her high risk . The patient is currently 34 weeks and 5 days gestation with class 3 obesity and depression. The patient has a brother with a cleft lip. She also has depression. She is a negative maternal serum alphafetoprotein during this and a low risk noninvasive screen. She comes in for an evaluation of anatomy. She is being seen today by Maternal- Medicine for the following reasons: Problem List Items Addressed This Visit Class 3 obesity (HCC) - Primary (Chronic) Relevant Orders [facility] US PREG FOLLOW UP EACH FETUS Obesity affecting I reviewed the ultrasound with her. The overall estimated weight is consistent with the 20th percentile for the gestational age and the anatomy that was visualized appears unremarkable. It is limited due to the advanced gestational age. The amniotic fluid volume is normal at 12 cm fetusis in the vertex presentation. The biophysical profile is 8/8. I reviewed her negative maternal serum AFP screening and her low risk noninvasive screen in light of the normal ultrasound findings. Relevant Orders MFM US PREG FOLLOW UP EACH FETUS Depression complicating , antepartum Relevant Orders MFM US PREG FOLLOW UP EACH FETUS Family history of defect Relevant Orders MFM US PREG FOLLOW UP EACH FETUS We reviewed today's ultrasound findings. (For full report, please refer to ultrasound report provided separately). Ms. Chauhan's questions were answered to her satisfaction. Ms. Chauhan was instructed to notify her primary director search if she felt regular contractions (approximately every 10 mins), leaking of fluid, vaginal bleeding or if movement decreased. RECOMMENDATIONS: Recommend surveillance starting at 34 weeks secondary to class III Obesity. Recommend follow up ultrasound with MFM in 4 weeks for growth secondary to class III obesity. Recommend delivery at 39 weeks gestation. Thank you for allowing us to participate in the care of this patient. Please call with any questions. Lloyd Ferreira MD 06/29/2023 8:02 AM documented in this encounter Miscellaneous Notes * Assessment & Plan Note - Lloyd Ferreira MD - 06/29/2023 8:43 AM EDT Associated Problem(s): Obesity affecting I reviewed the ultrasound with her. The overall estimated weight is consistent with the 20th percentile for the gestational age and the anatomy that was visualized appears unremarkable. It is limited due to the advanced gestational age. The amniotic fluid volume is normal at 12 cm fetusis in the vertex presentation. The biophysical profile is 8/8. I reviewed her negative maternal serum AFP screening and her low risk noninvasive screen in light of the normal ultrasound findings. documented in this encounter Plan of Treatment Upcoming Encounters Date Type Department Care Team (Late st Contact Info) Description 07/03/2023 1:45 PM EDT Office Visit Gynecology/Obstetrics [address] [place] [address] BackerKetty CRNP [address] [place] [address] Boyer, Non Stress Tests Ever [address] [place] [address] 07/10/2023 11:15 AM EST Office Visit Gynecology/Obstetrics [facility] [address] [place] [address] Backer, EMILY Carreon [address] [place] [address] Merlin Non Stress Tests Ever [address] [place] [address] 07/17/2023 11:15 AM EST Office Visit Gynecology/Obstetrics [facility] [address] [place] [address] Backer, EMILY Carreon [address] [place] [address] Merlin Non Stress Tests Ever [address] [place] [address] 07/24/2023 11:00 AM EST Office Visit Gynecology/Obstetrics [facility] [address] [place] [address] Flavio Rodriguez MD [address] [place] [address] Boyer, Non Stress Tests Ever [address] [place] [address] 07/31/2023 11:15 AM EST Office Visit Gynecology/Obstetrics [facility] [address] [place] [address] Joe KettyEMILY Ravi [address] [place] [address] Boyer, Non Stress Tests Ever [address] [place] [address] Scheduled Orders Name Type Priority Associated Diagnoses Orde r Schedule MFM US PREG FOLLOW UP EACH FETUS Medical Imaging Routine Class 3 obesity (HCC) Obesity affecting in third trimester, unspecified obesity type Family history of defect Depression complicating , antepartum 3 Occurrences starting 06/29/2023 until 09/29/2023 Health Maintenance Due Date Last Done Comments COVID-19 Vaccine (#1) 1997 Depression Screening 04/28/2020 04/28/2019 Pap Smear 05/07/2024 05/07/2021, 10/04/2019 DTaP,Tdap,and Td Vaccines (10 - Td or Tdap) 05/26/2033 05/26/2023, 03/05/2020, 09/25/2017, Additional history exists Hepatitis B Completed 02/16/1998, 01/1998, 1997 MENINGOCOCCAL (MENACTRA/MENVEO) Completed 03/06/2014 GARDASIL-HPV IMMUNIZATION SERIES Completed 01/10/2015, 05/29/2014, [...] as of this encounter Visit Diagnoses Diagnosis Class 3 obesity (HCC)- Primary Obesity affecting in third trimester, unspecified obesity type Family history of defect Family history of congenital anomalies Depression complicating , antepartum Mental disorders of mother, antepartum documented in this encounter
--- OUTSIDE RECORDS SUMMARY | 2023-07-29 20:47 | External Medical Summary | Summary of Care ---
Author Name Unknown Organization [facility] Address [address] [place] [address] Phone [phone] Care Team Providers Care Batterboard Setter Name Role Phone Unavailable Primary Care Provider Unavailabl e Reason for Visit * Reason Comments Return Visit Non Stress Test Encounter Details Date Type Department Care Team (Late st Contact Info) Description 07/10/2023 11:15 AM EST Office Visit Gynecology/Obstetric s [facility]ail[facility] Boyer [address] [facility] [place] [address] Ketty Diaz CRNP [address] [address] Merlin Non Stress Tests Ever [address] [facility] [address] Supervision of high risk in third trimester*; Obesity affecting in third trimester, unspecified obesity type; Depression complicating , antepartum; History of pre-eclampsia; Family history of defect; headache in third trimester Allergies No known active allergiesdocumented as of this encounter (statuses as of 07/10/2023) Medications Medication Sig Dispensed Refills Start Date [...] daily while 1 Each 0 03/18/2023 Active Hospital, Clinic, or Other Facility Administered Medication Ordered Dose Route Frequency Start Date End Date Status Acetaminophen (Tylenol) tab 650 mgIndications: headache in third trimester 650 mg OR ONCE 07/10/2023 07/10/20 23 Ended documented as of this encounter (statuses as of 07/10/2023) Active Problems Problem Noted Date Diagnosed Date [...] or questions 07/10/2023 Shanelle Cheney RN 07/10/2023 Class 3 obesity 12/29/2022 History of pre-eclampsia [...] Discussed etiology of the condition. Occurs in ~[id number] live births. Causes for cleft lip and [...] as of this encounter (statuses as of 07/10/2023) Resolved Problems Problem Noted Date Diagnosed Date [...] as of this encounter (statuses as of 07/10/2023) Immunizations Name Administration Dates Next Due DTaP Dipth/Tet/Acell Pertussis (Infanrix), Peds 04/20/2003,01/22/1999,02/16/1998,11/07,1997 HIB PRP-T, 4 dose (ActHib) 06/12/1998,,1997,09/05 HPV Vaccine, 4-Valent 01/10/2015,05/29/2014,02/2014 Haemophilius B (HIB), unspecified 1997,01/1998 Hepatitis B, 0-19 yrs 02/16/1998,1997,05/31 IPV - Polio Virus Vaccine (Inact) 04/20/2003,05/1998,1997 MMR - Measles/Mumps/Rubella Vaccine 04/20/2003 Meningococcal Conjugate Vacc ine (Menactra/Menveo) 03/06/2014 OPV - Polio Virus Vaccine (Oral) 06/12/1998 SEASONAL INFLUENZA, PF, 6 M & Above, IM , (FLULAVAL or FLUZONE) 05/26/2023,06/12/2017 Seasonal Influenza, Split, I IV3, With Preserve, Inj 06/29/2013 TDAP (age 10 and older)(Boostrix) 2022,03/05/2020,09/25/2017,03/06 Varicella Vaccine (Chicken Pox) 06/12/1998 documented as of this encounter Social History [...] money to get more. Never true 12/10/2022 [place] Depression Scale Answer Date Recorded [place] Depression Scale Total 13 06/12/2023 The thought [...] Sign Reading Time Taken Comments Blood Pressure 110/74 07/10/2023 11:12 AM EST Pulse - - Temperature - - Respiratory Rate - - Oxygen Saturation - - Inhaled Oxygen Concentration - - Weight 128.4 kg (283 lb) 07/10/2023 11:12 AM EST Height - - Body Mass Index 44.32 06/26/2023 1:32 PM EDT documented in this encounter Progress Notes * Ketty Diaz CRNP - 07/10/2023 11:07 AM EST 36w2d Baby is moving well. No ctx, leaking/bleeding. Up to date on growth u/s. [facility] recommends delivery in 39th week; pt agreeable to IOL, scheduled. Reports a LEDBETTER since Thursday night, ebbs and flows; has not taken any medication. Accepts Tylenol in the office today. Feels she is hydrating well. Denies vision changes, epigastric pain. Does not feel like swelling has increased significantly - weight is stable. BP normal. GBS today. Return in 1 week for NST/visit. Reviewed preE warning signs and when to call. Occ Ther Documentation Provider requested bass viol repairer. Name of bass viol repairer: EMILY Pryor LPN ASSESSMENT assessment with Non-stress Test completed on 07/10/2023 at 36w2d weeks gestation for indication of obesity heart baseline: 140 bpm Variability: Moderate Decelerations: absent Accelerations: present Contractions: None NST start time: 1107 NST stop time: 1141 NST strip reviewed, interpreted, and approved by OB provider, EMILY Duncan . NST strip stored in clinic storage file documented in this encounter Nursing Notes * Shanelle Cheney RN - 07/10/2023 12:01 PM EST Patient seen by [facility] Mail Carrier. Patient denies any questions or concerns. documented in this encounter Plan of Treatment Upcoming Encounters Date Type Department Care Team (Late st Contact Info) Description 07/17/2023 11:15 AM EST Office Visit Gynecology/Obstetrics Moy Boyer [address] [place] [address] BackerKetty CRNP [address] [place] [address] Nan Boyer Stress Tests Evre [address] [place] [address] 07/24/2023 11:00 AM EST Office Visit Gynecology/Obstetrics Moy Boyer [address] [place] [address] Flavio Rodriguez MD [address] [place] [address] Nan Boyer Stress Tests Ever [address] [place] [place] [address] 07/31/2023 11:15 AM EST Office Visit Gynecology/Obstetrics Moy Boyer [address] [place] [address] BackerKetty CRNP [address] [place] [address] Nan Boyer Stress Tests Ever [address] [place] [address] Pending Results Name Type Priority Associated Diagnoses Date /Time GROUP B STREP CULTURE/PCR Lab Routine Supervision of high risk in third trimester 07/10/2023 11:55 AM EST Scheduled Orders Name Type Priority Associated Diagnoses Orde r Schedule GROUP B STREP CULTURE/PCR Lab Routine Supervision of high risk in third trimester Expected: 07/10/2023, Expires: 07/10/2024 Health Maintenance Due Date Last Done Comments [...] as of this encounter Visit Diagnoses Diagnosis Supervision of high risk in third trimester- Primary Unspecified high-risk Obesity affecting in third trimester, unspecified obesity type Depression complicating , antepartum Mental disorders of mother, antepartum History of pre-eclampsia Family history of defect Family history of congenital anomalies headache in third trimester documented in this encounter Administered Medications Inactive Administered Medications - up to 3 most recent administrations Medication Order MAR Action Action Date Dose Rate Site Acetaminophen (Tylenol) tab 650 mg 650 mg, Oral, ONCE, On Thu07/10/23 at 1200, For 1 dose, Maximum of 4 grams (4000 mg) per day. Given 07/10/2023 11:30 AM EST 650 mg documented in this encounter
--- OUTSIDE RECORDS SUMMARY | 2023-07-29 20:47 | External Medical Summary | Summary of Care ---
Author Name Unknown Organization [facility] Address [address] [place] [address] Phone [phone] Care Team Providers Care Toy Mechanic Name Role Phone Unavailable Primary Care Provider Unavailabl e Reason for Visit * Reason Comments Return Visit Encounter Details Date Type Department Care Team (Late st Contact Info) Description 07/17/2023 11:15 AM EST Office Visit Gynecology/Obstetric s [facility] [address] [place] [address] Ketty Diaz CRNP [address] [place] [address] Merlin Non Stress Tests Ever [address] [facility] [place] [address] Supervision of high risk in third trimester*; Obesity affecting in third trimester, unspecified obesity type; Depression complicating , antepartum; History of pre-eclampsia; Family history of defect Allergies No known active allergiesdocumented as of this encounter (statuses as of 07/17/2023) Medications Medication Sig Dispensed Refills Start Date [...] as of this encounter (statuses as of 07/17/2023) Active Problems Problem Noted Date Diagnosed Date [...] Discussed etiology of the condition. Occurs in ~[id number] live births. Causes for cleft lip and [...] as of this encounter (statuses as of 07/17/2023) Resolved Problems Problem Noted Date Diagnosed Date [...] as of this encounter (statuses as of 07/17/2023) Immunizations Name Administration Dates Next Due HPV [...] money to get more. Never true 12/10/2022 [place] Depression Scale Answer Date Recorded [place] Depression Scale Total 13 06/12/2023 The thought [...] Sign Reading Time Taken Comments Blood Pressure 112/70 07/17/2023 11:18 AM EST Pulse - - Temperature - - Respiratory Rate - - Oxygen Saturation - - Inhaled Oxygen Concentration - - Weight 127.9 kg (282 lb) 07/17/2023 11:18 AM EST Height 170.2 cm (5' 7") 07/17/2023 11:18 AM EST Body Mass Index 44.17 07/17/2023 11:18 AM EST documented in this encounter Progress Notes * Ketty Diaz CRNP - 07/17/2023 11:16 AM EST TAHIRA/NST at 37w2d. No concerns. Reports good movement. No regular ctx, leaking/bleeding. GBS is neg. Has a 39 wk induction scheduled. Return in 1 week for NST/TAHIRA; sooner prn. ASSESSMENT assessment with Non-stress Test completed on 07/17/2023 at 37.2 weeks gestation for indication of obesity heart baseline: 130 bpm Variability: Moderate Decelerations: absent Accelerations: present Contractions: None NST start time: 1104 NST stop time: 1147 NST strip reviewed, interpreted, and approved by OB provider, EMILY Duncan . NST strip stored in clinic storage file documented in this encounter Plan of Treatment Upcoming Encounters Date Type Department Care Team (Late st Contact Info) Description 07/24/2023 11:00 AM EST Office Visit Gynecology/Obstetrics [facility] [address] [place] [address] Flavio Rodriguez MD [address] [place] [address] Merlin Non Stress Tests [facility] [address] [place] [address] 07/31/2023 11:15 AM EST Office [facility] [address] [place] [address] Ketty Diaz CRNP [address] [place] [address] Nan Boyer Stress Tests [facility] [address] [place] [address] Health Maintenance Due Date Last Done Comments [...]
--- OUTSIDE RECORDS SUMMARY | 2023-07-29 20:47 | External Medical Summary | Summary of Care ---
Author Name Unknown Organization [facility] Address [address] [place] [address] Phone [phone] Care Team Providers Care Aircraft Instrument Tester Name Role Phone Unavailable Primary Care Provider Unavailabl e Reason for Visit * Reason Comments Return Visit Non Stress Test Encounter Details Date Type Department Care Team (Late st Contact Info) Description 07/10/2023 11:15 AM EST Office Visit Gynecology/Obstetric s [facility]ail[facility] Boyer [address] [facility] [place] [address] Ketty Diaz CRNP [address] [address] Merlin Non Stress Tests Ever [address] [place] [place] [address] Supervision of high risk in third trimester*; [...] Discussed etiology of the condition. Occurs in ~[id number] live births. Causes for cleft lip and [...] money to get more. Never true 12/10/2022 [place] Depression Scale Answer Date Recorded [place] Depression Scale Total 13 06/12/2023 The thought [...] leaking/bleeding. Up to date on growth u/s. [facility] recommends delivery in 39th week; pt agreeable [...] preE warning signs and when to call. Station Repairer Documentation Provider requested document photographer. Name of document photographer: EMILY Pryor LPN ASSESSMENT assessment with Non-stress [...] 07/10/2023 12:01 PM EST Patient seen by [facility] Cyber Forensics Analyst. Patient denies any questions or concerns. documented in this encounter Plan of Treatment Upcoming Encounters Date Type Department Care Team (Late st Contact Info) Description 07/17/2023 11:15 AM EST Office Visit Gynecology/Obstetrics Moy Boyer [address] [place] [address] BackerKetty CRNP [address] [place] [address] Nan Boyer Stress Tests Ever [address] [place] [address] 07/24/2023 11:00 AM EST Office Visit Gynecology/Obstetrics Moy Boyer [address] [place] [address] Flavio Rodriguez MD [address] [place] [address] Nan Boyer Stress Tests Ever [address] [place] [address] 07/31/2023 11:15 AM EST Office Visit Gynecology/Obstetrics Moy Boyer [address] [place] [address] BackerKetty CRNP [address] [place] [address] Nan Boyer Stress Tests Ever [address] [place] [address] Pending Results Name Type Priority Associated Diagnoses [...]
--- OUTSIDE RECORDS SUMMARY | 2023-07-29 20:47 | External Medical Summary | Summary of Care ---
Author Name Unknown Organization [facility] Address [address] [place] [address] Phone [phone] Care Team Providers Care Manager Science Name Role Phone Unavailable Primary Care Provider Unavailabl e Reason for Visit * Reason Comments Non Stress Test Encounter Details Date Type Department Care Team (Late st Contact Info) Description 07/03/2023 1:45 PM EDT Office Visit Gynecology/Obstetric s [facility] [address] [place] [address] Ketty Diaz CRNP [address] [place] [address] Merlin Non Stress Tests Ever [address] [facility] [place] [address] Supervision of high risk in third trimester*; Obesity affecting in third trimester, unspecified obesity type; Depression complicating , antepartum; History of pre-eclampsia; Family history of defect Allergies No known active allergiesdocumented as of this encounter (statuses as of 07/03/2023) Medications Medication Sig Dispensed Refills Start Date [...] Tablet Chewable Take by mouth. 0 Active Aspirin 81 MG Oral Tablet Chewable (Aspirin 81)Indications:Hi story of pre-eclampsia,Obe sity affecting in second trimester Take 1 Tablet by mouth in the morning. Start taking this medication at 12 weeks gestation and continue until delivery. 30 Tablet 3 02/27/2023 07/03/2023 Active Breast Pump Pump daily while 1 Each 0 03/18/2023 Active documented as of this encounter (statuses as of 07/03/2023) Active Problems Problem Noted Date Diagnosed Date [...] 01/30/2023 08:36 AM URINE PROTEIN, 24HR URN Adam LILLY 12 01/30/2023 08:36 AM BP Readings from [...] Discussed etiology of the condition. Occurs in ~[id number] live births. Causes for cleft lip and [...] as of this encounter (statuses as of 07/03/2023) Resolved Problems Problem Noted Date Diagnosed Date [...] as of this encounter (statuses as of 07/03/2023) Immunizations Name Administration Dates Next Due HPV [...] money to get more. Never true 12/10/2022 [place] Depression Scale Answer Date Recorded [place] Depression Scale Total 13 06/12/2023 The thought [...] Sign Reading Time Taken Comments Blood Pressure 114/72 07/03/2023 1:36 PM EDT Pulse - - Temperature - - Respiratory Rate - - Oxygen Saturation - - Inhaled Oxygen Concentration - - Weight 127.9 kg (282 lb) 07/03/2023 1:36 PM EDT Height - - Body Mass Index 44.17 06/26/2023 1:32 PM EDT documented in this encounter Progress Notes * Ketty Diaz CRNP - 07/03/2023 1:35 PM EDT ASSESSMENT assessment with Non-stress Test completed on 07/03/2023 at 35w2d weeks gestation for indication of obesity heart baseline: 140 bpm Variability: Moderate Decelerations: absent Accelerations: present Contractions: None NST start time: 1339 NST stop time: 1409 NST strip reviewed, interpreted, and approved by OB provider, EMILY Duncan . NST strip stored in clinic storage file documented in this encounter Plan of Treatment Upcoming Encounters Date Type Department Care Team (Late st Contact Info) Description 07/10/2023 11:15 AM EST Office Visit Gynecology/Obstetrics [facility] [address] [place] [address] Ketty Diaz CRNP [address] [place] [address] Merlin Non Stress Tests Ever [address] [address] 07/17/2023 11:15 AM EST Office Visit Gynecology/Obstetrics [facility] [address] [address] Ketty Diaz CRNP [address] [place] [address] Merlin Non Stress Tests Ever [address] [address] 07/24/2023 11:00 AM EST Office Visit Gynecology/Obstetrics [facility] [address] [address] Flavio Rodriguez MD [address] [place] [address] Merlin, Non Stress Tests Ever [address] [address] 07/31/2023 11:15 AM EST Office Visit Gynecology/Obstetrics [facility] [address] [address] Ketty Diaz CRNP [address] [place] [address] Boyer, Non Stress Tests Ever [address] [place] [address] Health Maintenance Due Date Last Done Comments [...]
--- OUTSIDE RECORDS SUMMARY | 2023-07-29 20:47 | External Medical Summary | Summary of Care ---
Author Name Unknown Organization [facility] Address [address] [place] [address] Phone [phone] Care Team Providers Care Risk Intern Name Role Phone Unavailable Primary Care Provider [...] trimester Indigo Laura PA-C [address] [place] [address] Referral ID Status Reason Start Date Expiration Date Visits Requested Visits Authorized [id number] Authorized Specialty Services Required 3 [phone] Encounter Details Date Type Department Care Team (Late st Contact Info) Description 06/29/2023 7:45 AM EDT Office Visit Acute Dialysis Registered Nurse Obstetrics [facility] [place] [address] [place] [address] Lloyd Ferreira MD [address] [place], [place] [id number] Class 3 obesity (HCC)*; Obesity affecting in [...] Discussed etiology of the condition. Occurs in ~[id number] live births. Causes for cleft lip and [...] money to get more. Never true 12/10/2022 [place] Depression Scale Answer Date Recorded [place] Depression Scale Total 13 06/12/2023 The thought [...] Chauhan is at 34w5d who presents to [facility] for an ultrasound and follow-up of [...] obesity (HCC) - Primary (Chronic) Relevant Orders [facility] US PREG FOLLOW UP EACH FETUS [...] Chauhan was instructed to notify her primary automatic operator if she felt regular contractions (approximately every [...] 07/03/2023 1:45 PM EDT Office Visit Gynecology/Obstetrics [address] [place] [address] BackerKetty CRNP [address] [place] [address] Boyer, Non Stress Tests Ever [address] [place] [address] 07/10/2023 11:15 AM EST Office Visit Gynecology/Obstetrics [facility] [address] [place] [address] Backer, EMILY Carreon [address] [place] [address] Merlin Non Stress Tests Ever [address] [place] [address] 07/17/2023 11:15 AM EST Office Visit Gynecology/Obstetrics [facility] [address] [place] [address] Backer, EMILY Carreon [address] [place] [address] Merlin Non Stress Tests Ever [address] [place] [address] 07/24/2023 11:00 AM EST Office Visit Gynecology/Obstetrics [facility] [address] [address] Flavio Rodriguez MD [address] [place] [address] Boyer, Non Stress Tests Ever [address] [place] [address] 07/31/2023 11:15 AM EST Office Visit Gynecology/Obstetrics [facility] [address] [address] Joe KettyEMILY Ravi [address] [place] [address] Boyer, Non Stress Tests Ever [address] [place] [address] Scheduled Orders Name Type Priority Associated Diagnoses [...]
--- OUTSIDE RECORDS SUMMARY | 2023-07-29 20:47 | External Medical Summary | Summary of Care ---
Author Name Unknown Organization [facility] Address [address] [place] [address] Phone [phone] Care Team Providers Care Recreation Facility Manager Name Role Phone Unavailable Primary Care Provider Unavailabl e Reason for Visit * Reason Comments Return Visit Encounter Details Date Type Department Care Team (Late st Contact Info) Description 07/17/2023 11:15 AM EST Office Visit Gynecology/Obstetric s [facility] [address] [place] [address] Ketty Diaz CRNP [address] [place] [address] Merlin Non Stress Tests Ever [address] [facility] [place] [address] Supervision of high risk in third trimester*; [...] Discussed etiology of the condition. Occurs in ~[id number] live births. Causes for cleft lip and [...] 07/17/2023) Immunizations Name Administration Dates Next Due DTaP [...] money to get more. Never true 12/10/2022 [place] Depression Scale Answer Date Recorded [place] Depression Scale Total 13 06/12/2023 The thought [...] Nursing Notes * Shanelle Cheney RN - 07/17/2023 12:26 PM EST Patient seen by [facility] [employer] And Service Director. Patient denies any questions or concerns. have you cut down with your smokingn/a have you quit n/a have you seen a tie carrier n/a have you seen a pediatric social worker no are you receiving counseling no have you received dental care during your no are you enrolled in WIC yes do you receive food stamps or matta assistance yes Shanelle Cheney RN documented in this encounter Plan of Treatment Upcoming Encounters Date Type Department Care Team (Late st Contact Info) Description 07/24/2023 11:00 AM EST Office Visit Gynecology/Obstetrics Moy Boyer [address] [place] [address] Flavio Rodriguez MD [address] [place] [address] Boyer, Non Stress Tests Ever [address] [place] [address] 07/31/2023 11:15 AM EST Office Visit Gynecology/Obstetrics Moy Boyer [address] [place] [address] Ketty Diaz CRNP [address] [place] [address] Meriln Non Stress Tests Ever [address] [place] [address] Health Maintenance Due Date Last Done Comments [...]
--- OUTSIDE RECORDS SUMMARY | 2023-07-29 20:47 | External Medical Summary | Summary of Care ---
Author Name Unknown Organization [facility] Address [address] [place] [address] Phone [phone] Care Team Providers Care Sfdc Solution Architect Name Role Phone Unavailable Primary Care Provider Unavailabl e Reason for Referral * Evaluate & Treat - Unlimited Visits (Within 10 days (routine)) - Authorized Specialty Diagnoses / Procedures Referred By Ben t Referred To Contact Obstetrics/Gynecology / Maternal Medicine Diagnoses Obesity affecting in third trimester, unspecified obesity type Supervision of high-risk , unspecified trimester Indigo Laura PA-C [address] [place] [address] Referral ID Status Reason Start Date Expiration Date Visits Requested Visits Authorized [id number] Authorized Specialty Services Required 3 [phone] Question Answer Referral Priority Within 10 days (routine) Has the patient had a viability scan? Yes Date performed 12/23/2022 Location performed Radiology Reason for referral Obesity Obesity type Class 3 Where should this appointment be scheduled? [facility] Comments /Para: LMP: Patient's last menstrual period was 10/29/2022. Patient is . DAYANNA: 08/05/2023, by Last Menstrual Period Pre-Gravid BMI: class 3 Had recent ultrasound locally where composite age differed by estimated age. Encounter Details Date Type Department Care Team ([facility] st Contact Info) Description 06/17/2023 Telephone Gynecology/Obstetrics Moy Boyer [address] [place] [address] Indigo Laura PA-C [address] [place] [address] Allergies No known active allergiesdocumented as of this encounter (statuses as of 07/02/2023) Medications Medication Sig Dispensed Refills Start Date [...] as of this encounter (statuses as of 07/02/2023) Active Problems Problem Noted Date Diagnosed Date [...] Discussed etiology of the condition. Occurs in ~[id number] live births. Causes for cleft lip and [...] as of this encounter (statuses as of 07/02/2023) Resolved Problems Problem Noted Date Diagnosed Date [...] as of this encounter (statuses as of 07/02/2023) Immunizations Name Administration Dates Next Due HPV [...] money to get more. Never true 12/10/2022 [place] Depression Scale Answer Date Recorded [place] Depression Scale Total 13 06/12/2023 The thought [...] on file documented as of this encounter Miscellaneous Notes * Telephone Encounter - Payton Chowdhury LPN - 06/17/2023 4:24 PM EDT Pt calling back and message below reviewed. Pt verbalized understanding. * Telephone Encounter - Corinne Chun RN - 06/17/2023 8:34 AM EDT left message for patient to call office * Telephone Encounter - Indigo Laura PA-C - 06/17/2023 7:25 AM EDT Growth ultrasound should estimated weight and abdomen in normal limits. Baby's age by ultrasound was one week less than expected. I reached out to Maternal Medicine and they recommend she be seen with them for subsequent growth ultrasound. I placed referral so she can be scheduled. Please make aware. documented in this encounter Plan of Treatment Upcoming Encounters Date Type Department Care Team (Late st Contact Info) Description 07/03/2023 1:45 PM EDT Office Visit Gynecology/Obstetrics [facility] [address] [place] [address] Ketty Diaz CRNP [address] [place] [address] Boy[facility], Non Stress Tests Ever [address] [place] [address] 07/10/2023 11:15 AM EST Office Visit Gynecology/Obstetrics Moy Georges [address] [place] [address] Ketty Diaz CRNP [address] [place] [address] Boyer, Non Stress Tests Ever [address] [address] 07/17/2023 11:15 AM EST Office Visit Gynecology/Obstetrics [facility] [address] [place] [address] Ketty Diaz CRNP [address] [place] [address] Merlin, Non Stress Tests Ever [address] [address] 07/24/2023 11:00 AM EST Office Visit Gynecology/Obstetrics Moy [facility] [address] [place] [address] Flavio Rodriguez MD [address] [place] [address] Boy[facility], Non Stress Tests Ever [address] [address] 07/31/2023 11:15 AM EST Office Visit Gynecology/Obstetrics Moy Boyer [address] [place] [address] Ketty Diaz CRNP [address] [place] [address] Merlin Non Stress Tests Ever [address] [place] [address] Scheduled Referrals Name Type Priority Associated Diagnoses Orde r Schedule MATERNAL MEDICINE REFERRAL OP Referral Within 10 days (routine) Obesity affecting in third trimester, unspecified obesity type Supervision of high-risk , unspecified trimester Ordered: 06/17/2023 Health Maintenance Due Date Last Done Comments [...] Not on filedocumented as of this encounter Results * MFM US MATERNAL 1ST FETUS (06/29/2023 8:44 AM EDT) Anatomical Region Laterality Modality Abdomen, Pelvis, Ultrasoun d Narrative 06/29/2023 4:29 PM EDT For a complete ultrasound report, please refer to the document that was scanned into the New Media section of today's office visit. Indigo Laura PA-C RAD ULTRASOUND documented in this encounter Visit Diagnoses Diagnosis Obesity affecting in third trimester, unspecified obesity type- Primary Supervision of high-risk , unspecified trimester Obesity affecting in third trimester, unspecified obesity type Supervision of high-risk , unspecified trimester documented in this encounter
--- OUTSIDE RECORDS SUMMARY | 2023-07-29 20:48 | External Medical Summary ---
Author Name Unknown Address Unknown Organization [id number]:[facility] [place] [address] [place] [address] Laboratory Report Ordering Provider Test Date Status EMILY JAMES 05/15/2023 10:03:45 Final Based on ACOG guideline, ges tational diabetes mellitus is diagnosed when any of the following is met:
Fasting is greater than or equal to 95 mg/dL
1 hour is greater than or equal to 180 mg/dL
2 hour is greater than or equal to 155 mg/dL
3 hour is greater than or equal to 140 mg/dL Observation Date Value Abnormality Reference (Units ) Status Glucose, fasting 05/15/2023 10:03:45 88 70- 94 (mg/dL) Final Performing Location [facility] [place] [address] [place] [id number]
--- OUTSIDE RECORDS SUMMARY | 2023-07-29 20:48 | External Medical Summary ---
Author Name Unknown Address Unknown Organization [id number]:[facility] [place] [address] [place] [id number] Laboratory Report Ordering Provider Test Date Status EMILY JAMES 05/15/2023 10:03:45 Final Observation Date Value Abnormality Reference (Units ) Status Treponema pallidum Ab [Presence] in Serum by Immunoassay 05/15/2023 10:03:45 Nonreactive Nonreactive Final No serologic evidence of syp hilis. No additional testing clinicially indicated at this time. Consider repeat testing in 2-4 weeks if acute or primary syphilis is suspected. Performing Location [facility] [place] [address] [place] [id number]
--- OUTSIDE RECORDS SUMMARY | 2023-07-29 20:48 | External Medical Summary | Summary of Care ---
Author Name Unknown Organization [facility] Address [address] [place] [address] Phone [phone] Care Team Providers Care Gum Machine Filler Name Role Phone Unavailable Primary Care Provider Unavailabl e Reason for Visit * Reason Comments Healthy Beginnings Return Encounter Details Date Type Department Care Team Description 04/17/2023 Office Visit Gynecology/Obstetrics [facility] [address] [place] [address] Indigo Laura PA-C [address] [place] [address] Supervision of high risk in second trimester*; History of pre-eclampsia; Family history of defect; Obesity affecting in second trimester; Depression complicating , antepartum Allergies No known active allergiesdocumented as of this encounter (statuses as of 04/17/2023) Medications Medication Sig Dispensed Refills Start Date [...] Tablet Chewable Take by mouth. 0 Active Miconazole Nitrate 2 % Vaginal Cream (Monistat 7)Indications:Hig h-risk in second trimester,Urinary tract infection in mother during second trimester of Administer into the vagina daily. For 5 days. 45 g 0 02/27/2023 Active Additional Information Patient not taking.Reported on 03/18/2023 Aspirin 81 MG Oral Tablet Chewable (Aspirin 81)Indications:Hi story of pre-eclampsia,Obe sity affecting in second trimester Take 1 Tablet by mouth in the morning. Start taking this medication at 12 weeks gestation and continue until delivery. 30 Tablet 3 02/27/2023 06/27/2023 Active Breast Pump Pump daily while 1 Each 0 03/18/2023 Active documented as of this encounter (statuses as of 04/17/2023) Active Problems Problem Noted Date Abnormal GTT (glucose tolerance test) Overview: Failed early 1 hour GTT; 3 hour GTT passed. Repeat 3 hour GTT at 28 weeks. Health counseling 01/30/2023 Overview: Problem Action Taken [...] order sent 03/18/2023 Shanelle Cheney RN 03/18/2023 Class 3 obesity 12/29/2022 History of pre-eclampsia [...] after 12 weeks. Family history of defect 3 Overview: Patient has a brother with cleft palate and cerebral palsy Last Assessment & Plan: Discussed etiology of the condition. Occurs in ~[id number] live births. Causes for cleft lip and [...] cleft lip and palate. Depression complicating , antep artum 01/02/2020 Overview: History of depression History of self [...] 02/06/2023 07:56 AM Last Assessment & Plan: CONSIDERATIONS: Discussed obstetrical risks associated with class III obesity (pre- BMI of greater than or equal to 40) Reviewed that the accuracy of ultrasound at diagnosing anomalies is significantly decreased for women with an increased BMI. RECOMMENDATIONS: Recommend restricting weight gain during to 11-20 pounds. Patient should be referred for a nutrition consult. Recommend evaluation for signs and symptoms (snoring, excessive daytime sleepiness witnessed apnea or unexplained hypoxia) of obstructive sleep apnea. If any of these are present, referral to Sleep Medicine specialist for further evaluation should be considered. Recommend performing gestational diabetes mellitus screen now (if not performed at first visit) and repeat again at 26-28 weeks if early screen is normal. Recommend Maternal- Medicine ultrasound for anatomy at 20 weeks and for growth every 4 weeks thereafter. For patients with Class 3 obesity, we recommend baseline preeclamptic labs with CBC, serum AST/ALT/creatinine and 24 hour urine protein GALINDO if not already done. For patients with Class 3 obesity, we recommend weekly surveillance starting at 34 weeks and delivery by EDC. Recommend anesthesia consult during the antepartum period. Supervision of high risk in se cond trimester 10/04/2019 Last Assessment & Plan: Tdap given in left deltoid today 03/05/2020. Charlotte Alab LPN Estimated Date of Delivery Comme nts Yes 08/05/2023 Based on last me nstrual period of 10/29/2022 documented as of this encounter (statuses as of 04/17/2023) Resolved Problems Problem Noted Date Resolved Date Supervision of high-risk , unspecified trimester 01/02/2020 03/19/2020 Obesity in , antepartum 01/02/2020 03/19/2020 Eating disorder, unspecified 10/04/2019 Overview: At age 18 patient states she [...] first . Class 2 obesity in adult 10/23/2017 020 Overview: RECOMMENDATIONS: Class 2-BMI 35-39.9: Recommend restricting [...] by EDC. Supervision of normal first , [facility] 04/16/2017 11/20/2017 Overview: Patient received flu vaccine. 06/12/2017 Corinne Chun RN 09/25/2017 Tdap Vaccine administered per clinic protocol. Pt given VIS(vaccine information sheet) Corinne Chun RN OCP (oral contraceptive pills) initiation 201404/16/2017 Obesity, pediatric, BMI 95th to 98th percentile for age 0501/13/2015 10/23/2017 Anxiety state 05/06/2011 04/18/2020 documented as of this encounter (statuses as of 04/17/2023) Immunizations Name Administration Dates Next Due DTaP - Dipth/Tet/Acell Pertussis 003,01/22/1999,02/16/1998,11/07,1997 HIB 4 dose (Acthib) 06/12/1998, 8,1997,09/05 HPV Vaccine, 4-Valent 01/10/2015,05/29/2014,070 02/2014 Haemophilus B (HIB) 1997,1997 Hepatitis B, 0-19 yrs 02/16/1998,1997,05/31 IPV - Polio Virus Vaccine (Inact) 04/20/2003,05/1998,1997 MMR - Measles/Mumps/Rubella Vaccine 04/20/2003 Meningococcal Conjugate Vacc ine (Menactra/Menveo) 03/06/2014 OPV - Polio Virus Vaccine (Oral) 06/12/1998 Seasonal Influenza, PF, 6 mo ns & Above, IM , (Flulaval) 06/12/2017 Seasonal Influenza, Split, I IV3, With Preserve, Inj 06/29/2013 TDAP (age 10 and older)(Boostrix) 03/05/2020,,03/06/2014 Varicella Vaccine (Chicken Pox) 06/12/1998 documented as of this encounter Social History Tobacco Use Types Packs/Day Years Used Date Smoking Tobacco: Former Cigarettes Q uit: 2013 Smokeless Tobacco: Never Alcohol Use Standard Drinks/Week Comments Not Currently 0 (1 standard drink = 0.6 oz pur e alcohol) Food Insecurity Answer Date Recorded Within the past 12 months, y ou worried that your food would run out before you got money to buy more. Never true 12/10/2022 Within the past 12 months, t he food you bought just didn't last and you didn't have money to get more. Never true 12/10/2022 Estimated Date of Delivery Comme nts Yes 08/05/2023 Based on last me nstrual period of 10/29/2022 Sex Assigned at Date Recorded Female 12/10/2022 7:44 PM E DT Job Start Date Occupation Industry Not on file Not on file Not on file documented as of this encounter Last Filed Vital Signs Vital Sign Reading Time Taken Comments Blood Pressure 122/68 04/17/2023 9:36 AM EDT Pulse - - Temperature - - Respiratory Rate - - Oxygen Saturation - - Inhaled Oxygen Concentration - - Weight 129.7 kg (286 lb) 04/17/2023 9:36 AM EDT Height 170.2 cm (5' 7") 04/17/2023 9:36 AM EDT Body Mass Index 44.79 04/17/2023 9:36 AM EDT documented in this encounter Progress Notes * Indigo Laura PA-C - 04/17/2023 10:50 AM EDT 24w2d Ultrasound for growth today: 702 g +/- 103 g which is the 50th percentile. Normal EVONNE. FHT 147 bpm. Denies complaints. Reviewed 3 hour gtt with third tri labs next visit. Failed early 1 hour, passed 3 hour. Pt agreeable. Counseled on Tdap with next visit. RTC in 4 weeks Indigo Laura PA-C documented in this encounter Nursing Notes * Kristyn Sanchez LPN - 04/17/2023 10:35 AM EDT 24w2d Denies concerns. Had growth US completed today. Given instructions for labs next visit. documented in this encounter Miscellaneous Notes * Addendum Note - Kristyn Sanchez LPN - 04/17/2023 11:13 AM EDT Addended by: KRISTYN HERBERT on: 04/17/2023 11:13 AM Modules accepted: Orders documented in this encounter Plan of Treatment Upcoming Encounters Date Type Specialty Care Team Description 05/18/2023 Imaging Radiology 05/18/2023 Laboratory Laboratory [facility], [facility] [address] [place] [address] 05/18/2023 Office Visit Gynecology Obstetrics Backer, EMILY Carreon [address] [place] [address] Scheduled Orders Name Type Priority Associated Diagnoses Orde r Schedule GESTATIONAL GLUCOSE TOLERANCE, 3 HOUR Lab Routine Supervision of high risk in second trimester Expected: 05/18/2023 (Approximate), Expires: 04/17/2024 CBC WITH WBC DIFFERENTIAL AND ANEMIA REFLEX WORKUP Lab Routine Supervision of high risk in second trimester Expected: 05/18/2023 (Approximate), Expires: 04/17/2024 SYPHILIS ANTIBODY SCREEN WITH REFLEX TO RPR Lab Routine Supervision of high risk in second trimester Expected: 05/18/2023 (Approximate), Expires: 04/17/2024 US PREG FOLLOW-UP EACH FETUS Medical Imaging Routine Supervision of high risk in second trimester Obesity affecting in second trimester Expected: 05/18/2023, Expires: 05/18/2024 Health Maintenance Due Date Last Done Comments COVID-19 Vaccine (#1) 1997 Depression Screening, Annual for Pts 12 and Over 04/28/2020 04/28/2019 Influenza Vaccine (FLU shot) (#1) 2023 06/12/2017, 06/12/2017, 06/29/2013 Pap Smear 05/07/2024 05/07/2021, 10/04/2019 DTaP,Tdap,and Td Vaccines (9 - Td or Tdap) 03/05/2030 03/05/2020, 09/25/2017, 03/06/2014, Additional history exists Hepatitis B Completed 02/16/1998, 01/1998, 1997 MENINGOCOCCAL (MENACTRA/MENVEO) Completed 03/06/2014 GARDASIL-HPV IMMUNIZATION SERIES Completed 01/10/2015, 05/29/2014, 03/06/2014 Gonorrhea / Chlamydia Screen Discontinued 12/29/2022, 05/07/2021, 10/04/2019, Additional history exists Hepatitis C Screening Completed 12/29/2022 , 12/29/2022, 12/29/2022, Additional history exists Pneumococcal Vaccine: Pediatrics (0 to 5 Years) and At-Risk Patients (6 to 64 Years) Aged Out No longer eligible based on patient's age to complete this topic documented as of this encounter Medical Devices Not on filedocumented as of this encounter Procedures Procedure Name Priority Date/Time Associated Diagnosis Comments URINALYSIS, POINT OF CARE (ENTER/EDIT) Routine 04/17/2023 History of pre-eclampsia documented in this encounter Results * URINALYSIS, POINT OF CARE (ENTER/EDIT) (04/17/2023) Color, Urine Yellow Yellow or Light Yellow Clarity, Urine Clear Clear Glucose, Urine Negative Negative mg/dL Bilirubin, Urine Negative Negative Ketone, Urine Negative Negative mg/dL Specific [place], Urine 1.025 1.003 - 1.030 Blood, Urine Negative Negative pH, Urine 7.5 5.0 - 7.5 units Protein, Urine Negative Negative mg/dL Urobilinogen, Urine 0.2 0.2 - 1.0 mg/dL Nitrite, Urine Negative Negative Esterase, Urine Small Negative Urine 04/17/2023 Indigo Laura PA-C LAB POINT OF CARE TE ST ENTER/EDIT ORDERABLES documented in this encounter Visit Diagnoses Diagnosis Supervision of high risk in second trimester- Primary Unspecified high-risk History of pre-eclampsia Family history of defect Family history of congenital anomalies Obesity affecting in second trimester Depression complicating , antepartum Mental disorders of mother, antepartum documented in this encounter
--- OUTSIDE RECORDS SUMMARY | 2023-07-29 20:48 | External Medical Summary | Summary of Care ---
Author Name Unknown Organization [facility] Address [address] [place] [address] Phone [phone] Care Team Providers Care Payroll Accounting Clerk Name Role Phone Unavailable Primary Care Provider Unavailabl e Reason for Visit * Reason Onset Date Comments Return Visit Medication Administration 05/26/2023 Flu an d/or Pneumo Inj Encounter Details Date Type Department Care Team Description 05/26/2023 Office Visit Gynecology/Obstetrics [facility] [address] [place] [address] Ketty Diaz CRNP [address] [place] [address] Supervision of high risk in third trimester*; Obesity affecting in third trimester; Depression complicating , antepartum; History of pre-eclampsia; Family history of defect; Need for prophylactic vaccination with combined jidqaihklv-attrlbh-egd tussis (DTP) vaccine; Need for prophylactic vaccination and inoculation against influenza Allergies No known active allergiesdocumented as of this encounter (statuses as of 05/26/2023) Medications Medication Sig Dispensed Refills Start Date [...] 5 days. 45 g 0 02/27/2023 Active Aspirin 81 MG Oral Tablet Chewable (Aspirin 81)Indications:Hi story of pre-eclampsia,Obe sity affecting in second trimester Take 1 Tablet by mouth in the morning. Start taking this medication at 12 weeks gestation and continue until delivery. 30 Tablet 3 02/27/2023 06/27/2023 Active Breast Pump Pump daily while 1 Each 0 03/18/2023 Active documented as of this encounter (statuses as of 05/26/2023) Active Problems Problem Noted Date Health counseling 01/30/2023 Overview: Problem Action [...] or questions 05/26/2023 Shanelle Cheney RN 05/26/2023 Class 3 obesity 12/29/2022 History of pre-eclampsia [...] Discussed etiology of the condition. Occurs in ~[id number] live births. Causes for cleft lip and [...] Recommend anesthesia consult during the antepartum period. , supervision, high-risk 2019 Overview: Flu and Tdap vaccines 05/26/23 Last Assessment & Plan: Tdap given in left deltoid today 03/05/2020. Charlotte Alba LPN Estimated Date of Delivery Comme nts Yes 08/05/2023 Based on last me nstrual period of 10/29/2022 documented as of this encounter (statuses as of 05/26/2023) Resolved Problems Problem Noted Date Resolved Date Abnormal GTT (glucose tolerance test) 02/02/2023 05/26/2023 Overview: Failed early 1 hour GTT; 3 hour GTT passed. Repeat 3 hour GTT at 28 weeks. Supervision of high-risk , unspecified trimester 01/02/2020 [...] by EDC. Supervision of normal first , antepartu 04/16/2017 11/20/2017 Overview: Patient received flu vaccine. 06/12/2017 Corinne Chun RN 09/25/2017 Tdap Vaccine administered per clinic protocol. Pt given VIS(vaccine information sheet) Corinne Chun RN OCP (oral contraceptive pills) initiation 201404/16/2017 Obesity, pediatric, BMI 95th to 98th percentile for age 0501/13/2015 10/23/2017 Anxiety state 05/06/2011 04/18/2020 documented as of this encounter (statuses as of 05/26/2023) Immunizations Name Administration Dates Next Due HPV Vaccine, 4-Valent 01/10/2015,05/29/2014,02/2014 Meningococcal Conjugate Vacc ine (Menactra/Menveo) 03/06/2014 Seasonal Influenza, PF, 6 mo ns & Above, IM , (Flulaval) 05/26/2023,06/12/2017 Seasonal Influenza, Split, I IV3, With [...] Sign Reading Time Taken Comments Blood Pressure 120/72 05/26/2023 11:23 AM EDT Pulse - - Temperature - - Respiratory Rate - - Oxygen Saturation - - Inhaled Oxygen Concentration - - Weight 127.5 kg (281 lb) 05/26/2023 11:23 AM EDT Height 170.2 cm (5' 7") 05/26/2023 11:23 AM EDT Body Mass Index 44.01 05/26/2023 11:23 AM EDT documented in this encounter Progress Notes * Keesha Whyte LPN - 05/26/2023 11:23 AM EDT 29w6d Denies any issues * EMILY Asencio - 05/26/2023 11:22 AM EDT 29w6d Due for growth scan, she had to reschedule; will schedule at check out. No bleeding/leaking or ctx. Baby is moving well. Accepts flu and Tdap vaccines today. 2 week return EMILY Duncan documented in this encounter Nursing Notes * Shanelle Cheney RN - 05/26/2023 11:38 AM EDT Patient seen by [facility] Senior Biostatistician. Patient denies any questions or concerns. * Keesha Whyte LPN - 05/26/2023 11:36 AM EDT Patient here for flu injection. Patient doing well no complaints. Injection given IM as ordered. Patient tolerated well. Patient to follow up as directed. Patient instructed to call if any complications. Patient verbalized understanding of instructions given and her follow up appt for 2 weeks Injection site: Right Deltoid Medication Source: Dispensed stock medication Patient here for tdap injection. Patient doing well no complaints. Injection given IM as ordered. Patient tolerated well. Patient to follow up as directed. Patient instructed to call if any complications. Patient verbalized understanding of instructions given and her follow up appt for 2 weeks Injection site: Left Deltoid Medication Source: Dispensed stock medication documented in this encounter Plan of Treatment Upcoming Encounters Date Type Specialty Care Team Description 06/12/2023 Imaging Radiology 06/12/2023 Office Visit Gynecology Obstetrics Ketty Diaz CRNP [address] [place] [address] Health Maintenance Due Date Last Done Comments [...] 12/29/2022 , 12/29/2022, 12/29/2022, Additional history exists Influenza Vaccine (FLU shot) [...] Primary Unspecified high-risk Obesity affecting in third trimester Depression complicating , antepartum Mental disorders of mother, antepartum History of pre-eclampsia Family history of defect Family history of congenital anomalies Need for prophylactic vaccination with combined pwxlrridde-bxrpfpy-vykjbgiud (DTP) vaccine Need for prophylactic vaccination and inoculation against influenza documented in this encounter
--- OUTSIDE RECORDS SUMMARY | 2023-07-29 20:48 | External Medical Summary | Summary of Care ---
Author Name Unknown Organization [facility] Address [address] [place] [address] Phone [phone] Care Team Providers Care Director Of Database Marketing Name Role Phone Unavailable Primary Care Provider Unavailabl e Reason for Visit * Reason Comments Healthy Beginnings Return Encounter Details Date Type Department Care Team (Late st Contact Info) Description 06/26/2023 1:00 PM EDT Office Visit Gynecology/Obstetric s [facility] [address] [facility] [place] [address] Nakia Amor MD [address] [facility] [place] [address] Boyer, Non Stress Tests Ever [address] [facility] [place] [address] 34 weeks gestation of *; Obesity, Class III, BMI 40-49.9 (morbid obesity) ([facility]) [E66.01]; Supervision of high risk in third trimester; Depression complicating , antepartum; History of pre-eclampsia; Family history of defect; Breech presentation, single or unspecified fetus; Non-reactive NST (non-stress test) Allergies No known active allergiesdocumented as of this encounter (statuses as of 06/26/2023) Medications Medication Sig Dispensed Refills Start Date [...] Aspirin 81 MG Oral Tablet Chewable (Aspirin 81)Indications:Hist ory of pre-eclampsia,Obesi ty affecting in second trimester Take 1 Tablet by mouth in the morning. Start taking this medication at 12 weeks gestation and continue until delivery. 30 Tablet 3 02/27/2023 3 Active Breast Pump Pump daily while 1 Each 0 03/18/2023 Active Abrysvo 120 MCG/0.5ML Intramuscular Solution Reconstituted (RSV Pre-Fusion F A&B Vac Rcmb) Inject 0.5 mL into a large muscle once for 1 dose. 1 Each 0 06/26/2023 3 Active documented as of this encounter (statuses as of 06/26/2023) Active Problems Problem Noted Date Diagnosed Date [...] Discussed etiology of the condition. Occurs in ~[id number] live births. Causes for cleft lip and [...] during the antepartum period. , supervision, high-risk 10/04/2019 Overview: Flu and Tdap vaccines 05/26/23 Last Assessment & Plan: Tdap given in left deltoid today 03/05/2020. Charlotte Alba LPN Estimated Date of Delivery Comme nts Yes 08/05/2023 Based on last me nstrual period of 10/29/2022 documented as of this encounter (statuses as of 06/26/2023) Resolved Problems Problem Noted Date Diagnosed Date [...] as of this encounter (statuses as of 06/26/2023) Immunizations Name Administration Dates Next Due DTaP [...] money to get more. Never true 12/10/2022 [place] Depression Scale Answer Date Recorded [place] Depression Scale Total 13 06/12/2023 The thought [...] Reading Time Taken Comments Blood Pressure 112/70 06/26/2023 1:32 PM EDT Pulse - - Temperature - - Respiratory Rate - - Oxygen Saturation - - Inhaled Oxygen Concentration - - Weight 127 kg (280 lb) 06/26/2023 1:32 PM EDT Height 170.2 cm (5' 7") 06/26/2023 1:32 PM EDT Body Mass Index 43.85 06/26/2023 1:32 PM EDT documented in this encounter Progress Notes * Nakia Amor MD - 06/26/2023 1:00 PM EDT Patient is 28 year old at 34 2/7 weeks who presents for TAHIRA visit Denies contractions, leaking of fluid, or vaginal bleeding. Noted good movement Denies headache, blurry vision, RUQ or epigastric pain. Planning for Nexplanon after delivery Problem list reviewed BP 112/70 | Ht 1.702 m (5' 7") | Wt 127 kg (280 lb) | LMP 10/29/2022 | BMI 43.85 kg/m | BSA 2.45m ASSESSMENT assessment with Non-stress test completed on 06/26/2023 at 34 gestation for indication of obesity heart baseline: 145-150 bpm Variability: Moderate Accelerations: absent Decelerations: ?decle to 120 at 1329 Contractions: None NST strip reviewed, interpreted, and approved by OB provider, Trixie Amor. NST strip stored in clinic storage file NST start time: 1323 NST stop time: 1342 Plan: Labor and preeclampsia warnings reviewed BPP for no reactive NST RSV vaccine (32-36 6/) recommended-patient would like. Order placed Nst weekly, growth q4, deliver 39 weeks F/u with MFM as scheduled Thursday Plan for c section if baby is still breech at time of delivery RTC weekly for NST, 36 weeks for TAHIRA Trixie Amor MD PhD documented in this encounter Nursing Notes * Shanelle Cheney RN - 06/26/2023 2:11 PM EDT . Patient seen by [facility] [employer] Program Coordinator. Patient denies any questions or concerns. * Cookie Romero LPN - 06/26/2023 1:34 PM EDT 34w2d NST dt class III. Denies concerns. documented in this encounter Plan of Treatment Upcoming Encounters Date Type Department Care Team (Late st Contact Info) Description 06/29/2023 7:45 AM EDT Office Visit Medical Videographer Obstetrics Maternal Medicine, [place] [address] [place] [address] Lloyd Ferreira MD [address] [place] [address] 06/29/2023 7:45 AM EDT Imaging Radiology [facility] [address] [place] [address] 07/03/2023 1:45 PM EDT Office Visit Gynecology/Obstetrics [facility] [address] [place] [address] BackerKetty CRNP [address] [place] [address] Boyer, Non Stress Tests Ever [address] [place] [address] 07/10/2023 11:15 AM EST Office Visit Gynecology/Obstetrics [facility] [address] [place] [address] Backer, EMILY Carreon [address] [place] [address] Boyer, Non Stress Tests Ever [address] [place] [address] 07/17/2023 11:15 AM EST Office Visit Gynecology/Obstetrics [facility] [address] [place] [address] BackerKetty CRNP [address] [place] [address] Boyer, Non Stress Tests Ever [address] [place] [address] 07/24/2023 11:00 AM EST Office Visit Gynecology/Obstetrics [facility] [address] [place] [address] Flavio Rodriguez MD [address] [place] [address] Boyer, Non Stress Tests Ever [address] [place] [address] 07/31/2023 11:15 AM EST Office Visit Gynecology/Obstetrics [facility] [address] [place] [address] Backer, KettyEMILY Rvai [address] [place] [address] Boyer, Non Stress Tests Ever [address] [place] [address] Scheduled Orders Name Type Priority Associated Diagnoses Orde r Schedule US BPP W/O NON-STRESS TEST Medical Imaging Routine Non-reactive NST (non-stress test) Expected: 06/26/2023, Expires: 07/27/2024 Health Maintenance Due Date Last Done Comments [...] as of this encounter Visit Diagnoses Diagnosis 34 weeks gestation of - Primary state, incidental Obesity, Class III, BMI 40-49.9 (morbid obesity) ([facility]) [E66.01] Morbid obesity Supervision of high risk in third trimester Unspecified high-risk Depression complicating , antepartum Mental disorders of mother, antepartum History of pre-eclampsia Family history of defect Family history of congenital anomalies Breech presentation, single or unspecified fetus Non-reactive NST (non-stress test) Abnormal findings on screening documented in this encounter
--- OUTSIDE RECORDS SUMMARY | 2023-07-29 20:48 | External Medical Summary | Summary of Care ---
Author Name Unknown Organization [facility] Address [address] [place] [address] Phone [phone] Care Team Providers Care Marketing Team Lead Name Role Phone Unavailable Primary Care Provider Unavailabl e Reason for Visit * Reason Comments Healthy Beginnings Return Encounter Details Date Type Department Care Team Description 04/17/2023 Office Visit Gynecology/Obstetrics [facility] [address] [place] [address] Indigo Laura PA-C [address] [place] [address] Supervision of high risk in second trimester*; [...] Discussed etiology of the condition. Occurs in ~[id number] live births. Causes for cleft lip and [...] by EDC. Supervision of normal first , [facility] 04/16/2017 11/20/2017 Overview: Patient received [...] 04/17/2023) Immunizations Name Administration Dates Next Due HPV Vaccine, 4-Valent 01/10/2015,05/29/2014,02/2014 Meningococcal Conjugate Vacc ine (Menactra/Menveo) 03/06/2014 Seasonal Influenza, PF, 6 mo ns & Above, IM , (Flulaval) 06/12/2017 Seasonal Influenza, Split, I IV3, With Preserve, Inj 06/29/2013 TDAP (age 10 and older)(Boostrix) 03/05/2020,,03/06/2014 documented as of this encounter Social History [...] documented in this encounter Nursing Notes * Cookie Sanchez LPN - 04/17/2023 10:35 AM EDT 24w2d Denies concerns. Had growth US completed today. Given instructions for labs next visit. documented in this encounter Plan of Treatment Upcoming Encounters Date Type Specialty Care Team Description 05/18/2023 Imaging Radiology 05/18/2023 Laboratory Laboratory Benedict Boyer [address] [place] [address] 05/18/2023 Office Visit Gynecology Obstetrics Backer, EMILY Carreon [address] [place] [address] Scheduled Orders Name Type Priority Associated Diagnoses [...] second trimester Expected: 05/18/2023 (Approximate), Expires: 04/17/2024 PREG FOLLOW-UP EACH FETUS Medical Imaging Routine [...]
--- OUTSIDE RECORDS SUMMARY | 2023-07-29 20:48 | External Medical Summary | Summary of Care ---
Author Name Unknown Organization [facility] Address [address] [place] [address] Phone [phone] Care Team Providers Care Teacher Vocal Name Role Phone Unavailable Primary Care Provider Unavailabl e Reason for Visit * Reason Comments Outpatient Testing Encounter Details Date Type Department Care Team Description 05/15/2023 Laboratory Laboratory, [facility] [address] [place] [address] [facility] [address] [place] [address] Supervision of high risk in second trimester Allergies No known active allergiesdocumented as of this encounter (statuses as of 05/15/2023) Medications Medication Sig Dispensed Refills Start Date [...] as of this encounter (statuses as of 05/15/2023) Active Problems Problem Noted Date Abnormal GTT [...] Discussed etiology of the condition. Occurs in ~[id number] live births. Causes for cleft lip and [...] as of this encounter (statuses as of 05/15/2023) Resolved Problems Problem Noted Date Resolved Date [...] EDC. Supervision of normal first , antepartu m 04/16/2017 11/20/2017 Overview: Patient received flu vaccine. 06/12/2017 Corinne Chun RN 09/25/2017 Tdap Vaccine administered per clinic protocol. Pt given VIS(vaccine information sheet) Corinne Chun RN OCP (oral contraceptive pills) initiation 201404/16/2017 Obesity, pediatric, BMI 95th to 98th percentile for age 0501/13/2015 10/23/2017 Anxiety state 05/06/2011 04/18/2020 documented as of this encounter (statuses as of 05/15/2023) Immunizations Name Administration Dates Next Due HPV [...] on file documented as of this encounter Plan of Treatment Upcoming Encounters Date Type Specialty Care Team Description 05/18/2023 Imaging Radiology 05/18/2023 Office Visit Gynecology Obstetrics Backer, EMILY Carreon [address] [place] [address] Pending Results Name Type Priority Associated Diagnoses Date /Time CBC WITH WBC DIFFERENTIAL AND ANEMIA REFLEX WORKUP Lab Routine Supervision of high risk in second trimester 05/15/2023 10:03 AM EDT SYPHILIS ANTIBODY SCREEN WITH REFLEX TO RPR Lab Routine Supervision of high risk in second trimester 05/15/2023 10:03 AM EDT ANEMIA CBC Lab Routine Supervision of high risk in second trimester 05/15/2023 10:03 AM EDT DIFFERENTIAL, AUTOMATED Lab Routine Supervision of high risk in second trimester 05/15/2023 10:03 AM EDT ANEMIA REFLEX CHEMISTRY HOLD Lab Routine Supervision of high risk in second trimester 05/15/2023 10:03 AM EDT SYPHILIS ANTIBODY SCREEN Lab Routine Supervision of high risk in second trimester 05/15/2023 10:03 AM EDT Health Maintenance Due Date Last Done Comments COVID-19 Vaccine (#1) 1997 Depression Screening 04/28/2020 04/28/2019 Influenza Vaccine (FLU shot) (#1) [...] Procedure Name Priority Date/Time Associated Diagnosis Comments 100-G GESTATIONAL GLUCOSE, 3 HOUR Routine 05/15/2023 1:04 PM EDT Supervision of high risk in second trimester 100-G GESTATIONAL GLUCOSE, 2 HOUR Routine 05/15/2023 12:05 PM EDT Supervision of high risk in second trimester 100-G GESTATIONAL GLUCOSE, 1 HOUR Routine 05/15/2023 11:05 AM EDT Supervision of high risk in second trimester GESTATIONAL GLUCOSE TOLERANCE, 3 HOUR Routine 05/15/2023 10:03 AM EDT Supervision of high risk in second trimester 100-G GESTATIONAL GLUCOSE, FASTING Routine 05/15/2023 10:03 AM EDT Supervision of high risk in second trimester documented in this encounter Results * 100-G GESTATIONAL GLUCOSE, 3 HOUR (05/15/2023 1:04 PM EDT) 100-g Gestational Glucose, 3 Hour 113 70 - 139 mg/dL 05/15/2023 1:43 PM EDT LABORATORY [place] 57-10 Blood Venous blood specimen / Unknown Venipuncture / Unknown 05/15/2023 1:04 PM EDT 05/15/2023 1:04 PM EDT Indigo Laura PA-C LAB BLOOD ORDERABLES LAB[facility]ATORY [place] 57-[address] [place] [address] * 100-G GESTATIONAL GLUCOSE, 2 HOUR (05/15/2023 12:05 PM EDT) 100-g Gestational Glucose, 2 Hour 130 70 - 154 mg/dL 05/15/2023 12:53 PM EDT LAB[facility]ATORY [place] 57-10 Blood Venous blood specimen / Unknown Venipuncture / Unknown 05/15/2023 12:05 PM EDT 05/15/2023 12:05 PM EDT Indigo Laura PA-C LAB BLOOD ORDERABLES Performing Organization Address City/[facility]/ZIP Co de Phone Number LABORATORY [place] [phone] [place] [address] * 100-G GESTATIONAL GLUCOSE, 1 HOUR (05/15/2023 11:05 AM EDT) 100-g Gestational Glucose, 1 Hour 178 70 - 179 mg/dL 05/15/2023 12:00 PM EDT LAB[facility]ATORY [place] 57-10 Blood Venous blood specimen / Unknown Venipuncture / Unknown 05/15/2023 11:05 AM EDT 05/15/2023 11:05 AM EDT Indigo Laura PA-C LAB BLOOD ORDERABLES LAB[facility]ATORY [place] [facility]-[address] [place] [address] * 100-G GESTATIONAL GLUCOSE, FASTING (05/15/2023 10:03 AM EDT) 100-g Gestational Glucose, Fasting 88 70 - 94 mg/dL 05/15/2023 10:53 AM EDT [facility] [place] 57-10 Blood Venous blood specimen / Unknown Venipuncture / Unknown 05/15/2023 10:03 AM EDT 05/15/2023 10:03 AM EDT Narrative LAB[facility] [place] 57-10 - 05/15/2023 10:53 AM EDT Based on ACOG guideline, gestational diabetes mellitus is diagnosed when any of the following is met: Fasting is greater than or equal to 95 mg/dL 1 hour is greater than or equal to 180 mg/dL 2 hour is greater than or equal to 155 mg/dL 3 hour is greater than or equal to 140 mg/dL Indigo Laura PA-C LAB BLOOD ORDERABLES LAB[facility] [place] 57-[address] [facility] [place] [address] documented in this encounter Visit Diagnoses Diagnosis Supervision of high risk in second trimester Unspecified high-risk documented in this encounter
--- OUTSIDE RECORDS SUMMARY | 2023-07-29 20:48 | External Medical Summary ---
Author Name Unknown Address Unknown Organization K01:[facility] - [address] [place] [address] Laboratory Report Ordering Provider Test Date Status EMILY JAMES 05/15/2023 10:03:45 Final Observation Date Value Abnormality Reference (Units ) Status WBC, Total 05/15/2023 10:03:45 7.76 4.00-10.8 0 (K/uL) Final RBC 05/15/2023 10:03:45 4.31 3.85-5.15 (M/uL) Final Hemoglobin 05/15/2023 10:03:45 12.0 12.0-15.3 (g/dL) Final Anemia reflex testing trigge rs on a HGB < 12.0 for Females and HGB < 13.0 for Males in accordance with the WHO Anemia Guidelines
Anemia reflex testing triggers on a HGB < 12.0 for Females and HGB < 13.0 for Males in accordance with the WHO Anemia Guidelines HCT 05/15/2023 10:03:45 36.3 36.0-45.2 (%) Final MCV 05/15/2023 10:03:45 84.2 81.5-97.5 (fL) Final MCH 05/15/2023 10:03:45 27.8 27.0-34.0 (pg) Final MCHC 05/15/2023 10:03:45 33.1 32.0-36.0 (g/dL) Final RDW 05/15/2023 10:03:45 14.0 11.5-15.5 (%) Final Platelets 05/15/2023 10:03:45 274 140-400 (K /uL) Final MPV 05/15/2023 10:03:45 10.3 6.6-11.1 ( fL) Final Nucleated erythrocytes/100 leukocytes [Ratio] in Blood by Automated count 05/15/2023 10:03:45 0 <=0 (/100 WBCs) Fi nal Performing Location [facility] - [address] [facility] [address]
--- OUTSIDE RECORDS SUMMARY | 2023-07-29 20:48 | External Medical Summary ---
Author Name Unknown Address Unknown Organization K01:[facility]ORY [facility] - [address] [facility] [place] [address] Laboratory Report Ordering Provider Test Date Status EMILY JAMES 05/15/2023 10:03:45 Final Observation Date Value Abnormality Reference (Units ) Status SYNC LEUKOCYTES IN BLOOD BY AUTOMATED COUNT 05/15/2023 10:03:45 7.76 4.00-10.80 (K/uL) Final Segs 05/15/2023 10:03:45 69.2 40.0-75.0 (%) Final Lymphs % 05/15/2023 10:03:45 24.5 18.0-42.0 (%) Final Monos 05/15/2023 10:03:45 4.8 1.0-11.0 (%) Final Eosinophils 05/15/2023 10:03:45 0.8 0.0-6.0 (%) Final Basos 05/15/2023 10:03:45 0.1 0.0-2.0 (%) Final Immature Granulocyte, Percent 05/15/2023 10:03:45 0.6 0.0-2.0 (%) Final Absolute Segs 05/15/2023 10:03:45 5.37 1.80-7.70 (K/uL) Final Lymphs, absolute 05/15/2023 10:03:45 1.90 1.00-4.80 (K/ul) Final Monos, Abs 05/15/2023 10:03:45 0.37 0.00-1.10 (K/uL) Final Eos, Abs 05/15/2023 10:03:45 0.06 0.00-0.70 (K/uL) Final Basos, Abs 05/15/2023 10:03:45 0.01 0.00-0.20 (K/uL) Final Immature Granulocytes, Number 05/15/2023 10:03:45 0.05 0.00-0.20 (K/uL) Final Performing Location LAB[facility]ORY [place] - [address] [facility] [address]
--- OUTSIDE RECORDS SUMMARY | 2023-07-29 20:48 | External Medical Summary | Summary of Care ---
Author Name Unknown Organization [facility] Address [address] [place] [address] Phone [phone] Care Team Providers Care Continuous Washer Operator Name Role Phone Unavailable Primary Care Provider Unavailabl e Reason for Visit * Reason Comments Healthy Beginnings Return Encounter Details Date Type Department Care Team (Late st Contact Info) Description 06/26/2023 1:00 PM EDT Office Visit Gynecology/Obstetric s [facility] [address] [facility] [place] [address] Nakia Amor MD [address] [facility] [place] [address] Boyer, Non Stress Tests Ever [address] [facility] [place] [address] 34 weeks gestation of *; Obesity, Class III, BMI 40-49.9 (morbid obesity) ([facility]) [E66.01]; Supervision of high risk in third [...] Discussed etiology of the condition. Occurs in ~[id number] live births. Causes for cleft lip and [...] money to get more. Never true 12/10/2022 [place] Depression Scale Answer Date Recorded [place] Depression Scale Total 13 06/12/2023 The thought [...] 2:11 PM EDT . Patient seen by [facility] Records And Information Manager. Patient denies any questions or concerns. * Kristyn Romero LPN - 06/26/2023 1:34 PM EDT 34w2d NST dt class III. Denies concerns. documented in this encounter Miscellaneous Notes * Addendum Note - Kristyn Romero LPN - 06/26/2023 2:23 PM EDT Addended by: KRISTYN ROMERO on: 06/26/2023 02:23 PM Modules accepted: Orders documented in this encounter Plan of Treatment Upcoming Encounters Date Type Department Care Team (Late st Contact Info) Description 06/29/2023 7:45 AM EDT Office Visit Foil Stamp Operator Obstetrics Maternal Medicine, [address] [address] Lloyd Ferreira MD [address] [place] [facility] [address] 06/29/2023 7:45 AM EDT [facility] [address] [place] [place] [address] 07/03/2023 1:45 PM EDT Office Visit Gynecology/Obstetrics [facility] [address] [place] [address] Ketty Diaz CRNP [address] [place] [address] Merlin Non Stress Tests Ever [address] [place] [address] 07/10/2023 11:15 AM EST Office Visit Gynecology/Obstetrics [facility] [address] [place] [address] Ketty Diaz CRNP [address] [place] [address] Merlin Non Stress Tests Ever [address] [place] [address] 07/17/2023 11:15 AM EST Office Visit Gynecology/Obstetrics [facility] [address] [place] [address] Ketty Diaz CRNP [address] [place] [address] Merlin Non Stress Tests Ever [address] [place] [address] 07/24/2023 11:00 AM EST Office Visit Gynecology/Obstetrics [facility] [address] [place] [address] Flavio Rodriguez MD [address] [place] [address] Merlin, Non Stress Tests Ever [address] [place] [address] 07/31/2023 11:15 AM EST Office Visit Gynecology/Obstetrics [facility] [address] [place] [address] Ketty Diaz CRNP [address] [place] [address] Merlin, Non Stress Tests Ever [address] [place] [address] Pending Results Name Type Priority Associated Diagnoses Date /Time US BPP W/O NON-STRESS TEST Medical Imaging Routine Non-reactive NST (non-stress test) 06/26/2023 2:26 PM EDT Scheduled Orders Name Type Priority Associated Diagnoses [...] Comments URINALYSIS, POINT OF CARE (ENTER/EDIT) Routine 06/26/2023 History of pre-eclampsia documented in this encounter Results * URINALYSIS, POINT OF CARE (ENTER/EDIT) (06/26/2023) Color, Urine Dark Yellow Yellow or Light Yellow Clarity, Urine Clear Clear Glucose, Urine Negative Negative mg/dL Bilirubin, Urine Negative Negative Ketone, Urine Negative Negative mg/dL Specific [place], Urine 1.025 1.003 - 1.030 Blood, Urine Negative Negative pH, Urine 6.5 5.0 - 7.5 units Protein, Urine Trace Negative mg/dL Urobilinogen, Urine 0.2 0.2 - 1.0 mg/dL Nitrite, Urine Negative Negative Esterase, Urine Trace Negative Urine 06/26/2023 Nakia Amor MD LAB POINT OF C ARE TEST ENTER/EDIT ORDERABLES documented in this encounter Visit Diagnoses Diagnosis 34 weeks gestation of - Primary state, incidental Obesity, Class III, BMI 40-49.9 (morbid obesity) ([facility]) [E66.01] Morbid obesity Supervision of high risk in third trimester Unspecified high-risk Depression complicating , antepartum Mental disorders of mother, antepartum History of pre-eclampsia Family history of defect Family history of congenital anomalies Breech presentation, single or unspecified fetus Non-reactive NST (non-stress test) Abnormal findings on screening documented in this encounter
--- OUTSIDE RECORDS SUMMARY | 2023-07-29 20:48 | External Medical Summary | Summary of Care ---
Author Name Unknown Organization [facility] Address [address] [place] [address] Phone [phone] Care Team Providers Care Paint Laboratory Technician Name Role Phone Unavailable Primary Care Provider Unavailabl e Reason for Visit * Reason Onset Date Comments Test Results 06/12/2023 Unexpected or In determinate Result Encounter Details Date Type Department Care Team Description 06/12/2023 Telephone Radiology [facility] [address] [place] [address] Indigo Laura PA-C [address] [place] [address] Test Results (Unexpected or Indeterminate ... Allergies No known active allergiesdocumented as of this encounter (statuses as of 06/15/2023) Medications Medication Sig Dispensed Refills Start Date [...] as of this encounter (statuses as of 06/15/2023) Active Problems Problem Noted Date presentation, breech 06/12/2023 Overview: 32 wks [...] Discussed etiology of the condition. Occurs in ~[id number] live births. Causes for cleft lip and [...] as of this encounter (statuses as of 06/15/2023) Resolved Problems Problem Noted Date Resolved Date [...] as of this encounter (statuses as of 06/15/2023) Immunizations Name Administration Dates Next Due HPV [...] encounter Miscellaneous Notes * Telephone Encounter - Shanelle Cheney RN - 06/15/2023 11:25 AM EDT Attempted to call patient. No answer, LVM to return call. * Telephone Encounter - Indigo Laura PA-C - 06/15/2023 11:11 AM EDT Acknowledged. Indigo Laura PA-C * Telephone Encounter - Indigo Laura PA-C - 06/15/2023 11:09 AM EDT I placed an Ask-A-Doc to [facility] regarding results. Will await response. If she remains breech will growth ultrasound at 36 weeks she will need to discuss C/S delivery with MD. Please let her know. Indigo Laura PA-C * Telephone Encounter - Corinne Chun RN - 06/15/2023 8:40 AM EDT US ordered by Indigo but last seen by EMILY Guallpa * Telephone Encounter - ARCHANA Nichols - 06/12/2023 5:33 PM EDT Hello- The radiologist discovered an unexpected or indeterminate finding on Rosalba Chauhan ([id number]) and asks that you review the following report. Study Type: US PREG FOLLOW-UP EACH FETUS Date of Study: 06/12/2023 IMPRESSION 1. Composite age 31 weeks 2 days. This lags the expected age as based on the 1st ultrasound by 7 days. Estimated weight and abdominal circumference both at the 20th percentile. 2. Normal EVONNE, 18. 3. Breech presentation. Please respond to this encounter to acknowledge receipt of this message and take responsibility to ensure this report is reviewed. Thank you, ARCHANA Nichols Client Service Rep [facility] documented in this encounter Plan of Treatment Upcoming Encounters Date Type Specialty Care Team Description 06/26/2023 Office Visit Gynecology Obstetrics Nakia Amor MD [address] [place] [address] [place] [address] Boyer, Non Stress Tests Ever [address] [place] [address] 07/03/2023 Office Visit Gynecology Obstetrics Ketty Diaz CRNP [address] [place] [address] Merlin, Non Stress Tests Ever [address] [place] [address] 07/10/2023 Office Visit Gynecology Obstetrics Ketty Diaz CRNP [address] [place] [address] Merlin, Non Stress Tests Ever [address] [place] [address] 07/17/2023 Office Visit Gynecology Obstetrics Backer, EMILY Carreon [address] [place] [address] Boyer, Non Stress Tests Ever [address] [place] [address] 07/24/2023 Office Visit Gynecology Obstetrics Flavio Rodriguez MD [address] [place] [address] Merlin, Non Stress Tests Ever [address] [place] [address] 07/31/2023 Office Visit Gynecology Obstetrics Backer, EMILY Carreon [address] [place] [address] Merlin, Non Stress Tests Ever [address] [place] [address] Health Maintenance Due Date Last Done Comments [...]
--- OUTSIDE RECORDS SUMMARY | 2023-07-29 20:48 | External Medical Summary | Summary of Care ---
Author Name Unknown Organization [facility] Address [address] [facility] [place] [place] [address] Phone [phone] Care Team Providers Care Brake Press Operator Name Role Phone Unavailable Primary Care Provider Unavailabl e Reason for Visit * Reason Comments Healthy Beginnings Return Encounter Details Date Type Department Care Team Description 06/12/2023 Office Visit Gynecology/Obstetrics [facility] [address] [place] [address] Ketty Diaz CRNP [address] [place] [address] Supervision of high risk in third trimester*; Obesity affecting in third trimester, unspecified obesity type; Depression complicating , antepartum; History of pre-eclampsia; Family history of defect; Breech presentation, single or unspecified fetus Allergies No known active allergiesdocumented as of this encounter (statuses as of 06/12/2023) Medications Medication Sig Dispensed Refills Start Date [...] Aspirin 81 MG Oral Tablet Chewable (Aspirin 81)Indications:H istory of pre-eclampsia,Ob esity affecting in second trimester Take 1 Tablet by mouth in the morning. Start taking this medication at 12 weeks gestation and continue until delivery. 30 Tablet 3 02/27/2023 3 Active Breast Pump Pump daily while 1 Each 0 03/18/2023 Active Nitrofurantoin Monohyd Macro 100 MG Oral Capsule (Macrobid)Indica tions:High-risk in second trimester,Urinar y tract infection in mother during second trimester of Take 1 Capsule by mouth in the morning and 1 Capsule before bedtime. Do all this for 5 days. With food. Until gone.. 10 Capsule 0 02/27/2023 3 Discontinue d(Medicatio n List Clean Up) Miconazole Nitrate 2 % Vaginal Cream (Monistat 7)Indications:Hi gh-risk in second trimester,Urinar y tract infection in mother during second trimester of Administer into the vagina daily. For 5 days. 45 g 0 02/27/2023 3 Discontinue d(Medicatio n List Clean Up) documented as of this encounter (statuses as of 06/12/2023) Active Problems Problem Noted Date presentation, breech [...] Discussed etiology of the condition. Occurs in ~2gd1103 live births. Causes for cleft lip and [...] as of this encounter (statuses as of 06/12/2023) Resolved Problems Problem Noted Date Resolved Date [...] as of this encounter (statuses as of 06/12/2023) Immunizations Name Administration Dates Next Due HPV [...] Sign Reading Time Taken Comments Blood Pressure 112/68 06/12/2023 1:16 PM EDT Pulse - - Temperature - - Respiratory Rate - - Oxygen Saturation - - Inhaled Oxygen Concentration - - Weight 126.1 kg (278 lb) 06/12/2023 1:16 PM EDT Height 170.2 cm (5' 7") 06/12/2023 1:16 PM EDT Body Mass Index 43.54 06/12/2023 1:16 PM EDT documented in this encounter Progress Notes * EMILY Asencio - 06/12/2023 1:33 PM EDT 32w2d Growth scan today, report in process. +cardiac activity. Breech presentation. Good movement. No ctx, leaking, bleeding. Discussed EPDS - pt feels current Zoloft dose is effective, no concerns. Start weekly NSTs at next visit. EMILY Duncan documented in this encounter Nursing Notes * Cookie Sanchez LPN - 06/12/2023 1:37 PM EDT 32w2d Growth US today- 18th%, EVONNE 16, breech. Denies concerns. documented in this encounter Plan of Treatment Upcoming Encounters Date Type Specialty Care Team Description 06/26/2023 Office Visit Gynecology Obstetrics ik, Nakia Sun MD [address] [place] [address] [place] [address] Boyer, Non Stress Tests Ever [address] [place] [address] 07/03/2023 Office Visit Gynecology Obstetrics Ketty Diaz CRNP [address] [place] [address] Boyer, Non Stress Tests Ever [address] [place] [address] 07/10/2023 Office Visit Gynecology Obstetrics Ketty Diaz CRNP [address] [place] [address] Boyer, Non Stress Tests Ever [address] [place] [address] 07/17/2023 Office Visit Gynecology Obstetrics Backer, EMILY Carreon [address] [place] [address] Boyer, Non Stress Tests Ever [address] [place] [address] 07/24/2023 Office Visit Gynecology Obstetrics Flavio Rodriguez MD [address] [place] [address] Merlin, Non Stress Tests Ever [address] [place] [address] 07/31/2023 Office Visit Gynecology Obstetrics Backer, EMILY Carreon [address] [place] [address] Merlin, Non Stress Tests Ever [address] [place] [address] Scheduled Orders Name Type Priority Associated Diagnoses Orde r Schedule URINALYSIS, POINT OF CARE (ENTER/EDIT) Point of Care Testing Routine Obesity affecting in third trimester, unspecified obesity type History of pre-eclampsia Ordered: 06/12/2023 Health Maintenance Due Date Last Done Comments [...] anomalies Breech presentation, single or unspecified fetus documented in this encounter
--- OUTSIDE RECORDS SUMMARY | 2023-07-29 20:48 | External Medical Summary | Summary of Care ---
Author Name Unknown Organization [facility] Address [address] [facility] [address] Phone [phone] Care Team Providers Care Juice Weigher Name Role Phone Unavailable Primary Care Provider Unavailabl e Reason for Visit * Reason Comments Healthy Beginnings Return Encounter Details Date Type Department Care Team Description 06/12/2023 Office Visit Gynecology/Obstetrics [facility] [address] [place] [address] Ketty Diaz CRNP [address] [place] [address] Supervision of high risk in third trimester*; [...] Discussed etiology of the condition. Occurs in ~[id number] live births. Causes for cleft lip and [...] 06/12/2023) Immunizations Name Administration Dates Next Due DTaP [...] Date Smoking Tobacco: Former Cigarettes Q uit: 2014 Smokeless Tobacco: Never Alcohol Use Standard Drinks/Week [...] Team Description 06/26/2023 Office Visit Gynecology Obstetrics Bzik, Nakia Sun MD [address] [place] [address] [place] [address] Boyer, Non Stress Tests Ever [address] [place] [address] 07/03/2023 Office Visit Gynecology Obstetrics Backer, Ketty BaezEMILY jimenez [address] [place] [address] Boyer, Non Stress Tests Ever [address] [place] [address] 07/10/2023 Office Visit Gynecology Obstetrics Backer, EMILY Carreon [address] [place] [address] Boyer, Non Stress Tests Ever [address] [place] [address] 07/17/2023 Office Visit Gynecology Obstetrics Backer, EMILY Carreon [address] [place] [address] Boyer, Non Stress Tests Ever [address] [place] [address] 07/24/2023 Office Visit Gynecology Obstetrics Flavio Rodriguez MD [address] [place] [address] Boyer, Non Stress Tests Ever [address] [place] [address] 07/31/2023 Office Visit Gynecology Obstetrics Backer, EMILY Carreon [address] [place] [address] Boyer, Non Stress Tests Ever [address] [place] [address] Health Maintenance Due Date Last Done Comments [...] Comments URINALYSIS, POINT OF CARE (ENTER/EDIT) Routine 06/12/2023 Obesity affecting in third trimester, unspecified obesity type History of pre-eclampsia documented in this encounter Results * URINALYSIS, POINT OF CARE (ENTER/EDIT) (06/12/2023) Color, Urine [place] Yellow or Light Yellow Clarity, Urine Clear Clear Glucose, Urine Negative Negative mg/dL Bilirubin, Urine Negative Negative Ketone, Urine Negative Negative mg/dL Specific [place], Urine 1.025 1.003 - 1.030 Blood, Urine Negative Negative pH, Urine 6.5 5.0 - 7.5 units Protein, Urine 30 Negative mg/dL Urobilinogen, Urine 1.0 0.2 - 1.0 mg/dL Nitrite, Urine Negative Negative Esterase, Urine Small Negative Urine 06/12/2023 Ketty DIAZ LAB POINT O F CARE TEST ENTER/EDIT ORDERABLES documented in this encounter [...]
--- OUTSIDE RECORDS SUMMARY | 2023-07-29 20:48 | External Medical Summary | Summary of Care ---
Author Name Unknown Organization [facility] Address [address] [place] [address] Phone [phone] Care Team Providers Care Digital Media Manager Name Role Phone Unavailable Primary Care Provider Unavailabl e Reason for Visit * Reason Comments Healthy Beginnings Return Encounter Details Date Type Department Care Team (Late st Contact Info) Description 06/26/2023 1:00 PM EDT Office Visit Gynecology/Obstetric s [facility] [address] [facility] [place] [address] Nakia Amor MD [address] [facility] [place] [address] Boyer, Non Stress Tests Ever [address] [facility] [place] [address] 34 weeks gestation of *; Obesity, Class III, BMI 40-49.9 (morbid obesity) ([facility]) [E66.01]; Supervision of high risk in third [...] Discussed etiology of the condition. Occurs in ~[id number] live births. Causes for cleft lip and [...] money to get more. Never true 12/10/2022 Doole Depression Scale Answer Date Recorded Doole Depression Scale Total 13 06/12/2023 The thought [...] 2:11 PM EDT . Patient seen by [facility] Rubber Covering Machine Operator. Patient denies any questions or concerns. * [...] Description 06/29/2023 7:45 AM EDT Office Visit Take Away Attendant Obstetrics [facility]aternal [facility], [address] [address] Lloyd Ferreira MD [address] [place] [place] [address] 06/29/2023 7:45 AM EDT [facility] [address] [place] [facility] [place] [address] 07/03/2023 1:45 PM EDT Office Visit Gynecology/Obstetrics [facility] [address] [place] [address] Ketty Diaz CRNP [address] [place] [address] Merlin Non Stress Tests Ever [address] [place] [address] 07/10/2023 11:15 AM EST Office Visit Gynecology/Obstetrics [facility] [address] [place] [address] Ketty Diaz CRNP [address] [place] [address] Merlin Non Stress Tests Ever [address] [place] [address] 07/17/2023 11:15 AM EST Office Visit Gynecology/Obstetrics [facility] [address] [place] [address] Ketty Diaz CRNP [address] [place] [address] Merlin Non Stress Tests Ever [address] [place] [address] 07/24/2023 11:00 AM EST Office Visit Gynecology/Obstetrics [facility] [place] [address] [place] [address] Flavio Rodriguez MD [address] [place] [address] Merlin, Non Stress Tests Ever [address] [place] [address] 07/31/2023 11:15 AM EST Office Visit Gynecology/Obstetrics Moy Boyer [address] [place] [address] Ketty Diaz CRNP [address] [place] [address] Merlin Non Stress Tests Ever [address] [place] [address] Scheduled Orders Name Type Priority Associated Diagnoses [...] Negative Ketone, Urine Negative Negative mg/dL Specific [place], Urine 1.025 1.003 - 1.030 Blood, Urine [...] Obesity, Class III, BMI 40-49.9 (morbid obesity) ([facility]) [E66.01] Morbid obesity Supervision of high risk in third trimester Unspecified high-risk Depression complicating , antepartum Mental disorders of mother, antepartum History of pre-eclampsia Family history of defect Family history of congenital anomalies Breech presentation, single or unspecified fetus Non-reactive NST (non-stress test) Abnormal findings on screening documented in this encounter
--- OUTSIDE RECORDS SUMMARY | 2023-07-29 20:48 | External Medical Summary ---
Author Name Unknown Address Unknown Organization [facility] [place] [address] [place] [address] Laboratory Report Ordering Provider Test Date Status EMILY JAMES 05/15/2023 11:05:54 Final Observation Date Value Abnormality Reference (Units ) Status Glucose [Mass/volume] in Serum or Plasma --1 hour post dose glucose 05/15/2023 11:05:54 178 70-179 (mg/dL) Final Performing Location [facility] 57-[address] 0 - [address] [place] [address]
--- OUTSIDE RECORDS SUMMARY | 2023-07-29 20:48 | External Medical Summary ---
Author Name Unknown Address Unknown Organization [facility] [address] [place] [id number] Laboratory Report Ordering Provider Test Date Status EMILY JAMES 05/15/2023 13:04:52 Final Observation Date Value Abnormality Reference (Units ) Status Glucose [Mass/volume] in Serum or Plasma --3 hours post dose glucose 05/15/2023 13:04:52 113 70-139 (mg/dL) Final Performing Location [facility] 57-[address] 0 - [address] [place] [address]
--- OUTSIDE RECORDS SUMMARY | 2023-07-29 20:48 | External Medical Summary | Summary of Care ---
Author Name Unknown Organization [facility] Address [address] [place] [address] Phone [phone] Care Team Providers Care Polymerization Engineer Name Role Phone Unavailable Primary Care Provider Unavailabl e Reason for Visit * Reason Comments Healthy Beginnings Return Encounter Details Date Type Department Care Team (Late st Contact Info) Description 06/26/2023 1:00 PM EDT Office Visit Gynecology/Obstetric s [facility] [place] [address] [facility] [place] [address] Nakia Amor MD [address] [facility] [place] [address] Boyer, Non Stress Tests Ever [address] [facility] [place] [address] 34 weeks gestation of *; Obesity, Class III, BMI 40-49.9 (morbid obesity) ([facility]) [E66.01]; Supervision of high risk in third [...] Discussed etiology of the condition. Occurs in ~[id number] live births. Causes for cleft lip and [...] 06/26/2023) Immunizations Name Administration Dates Next Due HPV [...] money to get more. Never true 12/10/2022 Hellier Depression Scale Answer Date Recorded Hellier Depression Scale Total 13 06/12/2023 The thought [...] 10/29/2022 | BMI 43.85 kg/m | BSA 2.45 m ASSESSMENT assessment with Non-stress test completed on [...] for no reactive NST RSV vaccine (32-36 6/7) recommended-patient would like. Order placed Nst weekly, growth q4, deliver 39 weeks F/u with MFM as scheduled Thursday Plan for c section if baby is still breech at time of delivery RTC weekly for NST, 36 weeks for TAHIRA Trixie Amor MD PhD documented in this encounter Nursing Notes * Shanelle Cheney RN - 06/26/2023 2:11 PM EDT . Patient seen by [facility] Blow Down Operator. Patient denies any questions or concerns. * Cookie Romero LPN - 06/26/2023 1:34 PM EDT 34w2d NST dt class III. Denies concerns. documented in this encounter Plan of Treatment Upcoming Encounters Date Type Department Care Team (Late st Contact Info) Description 06/29/2023 7:45 AM EDT Office Visit Palliative Care Specialist [facility] [place] [address] [place] [address] Lloyd Ferreira MD [address] [place] [address] 06/29/2023 7:45 AM EDT Imaging Radiology [facility] [address] [place] [address] 07/03/2023 1:45 PM EDT Office Visit Gynecology/Obstetrics Moy Boyer [address] [place] [address] Ketty Diaz CRNP [address] [place] [address] Merlin, Non Stress Tests Ever [address] [place] [address] 07/10/2023 11:15 AM EST Office Visit Gynecology/Obstetrics Moy Georges [address] [place] [address] Ketty Diaz CRNP [address] [place] [address] Merlin, Non Stress Tests Ever [address] [place] [address] 07/17/2023 11:15 AM EST Office Visit Gynecology/Obstetrics Moy Boyer [address] [place] [address] Backer, EMILY Carreon [address] [place] [address] Merlin Non Stress Tests Ever [address] [place] [address] 07/24/2023 11:00 AM EST Office Visit Gynecology/Obstetrics Moy Boyer [address] [place] [address] Flavio Rodriguez MD [address] [place] [address] Merlin Non Stress Tests Ever [address] [place] [address] 07/31/2023 11:15 AM EST Office Visit Gynecology/Obstetrics Moy Boyer [address] [place] [address] Backer, EMILY Carreon [address] [place] [address] Merlin Non Stress Tests Ever [address] [place] [address] Scheduled Orders Name Type Priority Associated Diagnoses [...] Obesity, Class III, BMI 40-49.9 (morbid obesity) ([facility]) [E66.01] Morbid obesity Supervision of high risk in third trimester Unspecified high-risk Depression complicating , antepartum Mental disorders of mother, antepartum History of pre-eclampsia Family history of defect Family history of congenital anomalies Breech presentation, single or unspecified fetus Non-reactive NST (non-stress test) Abnormal findings on screening documented in this encounter
--- OUTSIDE RECORDS SUMMARY | 2023-07-29 20:48 | External Medical Summary | Summary of Care ---
Author Name Unknown Organization [facility] Address [address] [facility] [address] Phone [phone] Care Team Providers Care Double Head Machine Operator Name Role Phone Unavailable Primary Care Provider Unavailabl e Reason for Visit * Reason Onset Date Comments Test Results 06/12/2023 Unexpected or In determinate Result Encounter Details Date Type Department Care Team Description 06/12/2023 Telephone Radiology [facility] [address] [place] [address] Indigo Laura PA-C [address] [facility] [place] [address] Test Results (Unexpected or Indeterminate ... Allergies [...] Discussed etiology of the condition. Occurs in ~[id number] live births. Causes for cleft lip and [...] 06/15/2023) Immunizations Name Administration Dates Next Due DTaP [...] encounter Miscellaneous Notes * Telephone Encounter - Nuria Veliz LPN - 06/15/2023 2:16 PM EDT Pt notified * Telephone Encounter - Shanelle Cheney RN - 06/15/2023 11:25 AM EDT Attempted to call patient. No answer, M to return call. * Telephone Encounter - Indigo Laura PA-C - 06/15/2023 11:11 AM EDT Acknowledged. Indigo Laura PA-C * Telephone Encounter - Indigo Laura PA-C - 06/15/2023 11:09 AM EDT I placed an Ask-A-Doc to [facility] regarding results. Will await response. If [...] unexpected or indeterminate finding on Rosalba Chauhan ([id number]) and asks that you review the following [...] Thank you, ARCHANA Nichols Client Service Rep [facility] [place] documented in this encounter Plan of Treatment Upcoming Encounters Date Type Specialty Care Team Description 06/26/2023 Office Visit Gynecology Obstetrics [place], Nakia Sun MD [address] [place] [address] [place] [address] Boyer, Non Stress Tests Ever [address] [place] [address] 07/03/2023 Office Visit Gynecology Obstetrics BackerKetty CRNP [address] [place] [address] Boyer, Non Stress Tests Ever [address] [place] [address] 07/10/2023 Office Visit Gynecology Obstetrics BackerKetty CRNP [address] [place] [address] Boyer, Non Stress Tests Ever [address] [place] [address] 07/17/2023 Office Visit Gynecology Obstetrics BackerKetty CRNP [address] [place] [address] Boyer, Non Stress Tests Ever [address] [place] [address] 07/24/2023 Office Visit Gynecology Obstetrics Flavio Rodriguez MD [address] [place] [address] Boyer, Non Stress Tests Ever [address] [place] [address] 07/31/2023 Office Visit Gynecology Obstetrics Backer, EMILY Carreon [address] [place] [address] Nan Boyer Stress Tests Ever [address] [place] [address] Health Maintenance Due Date Last Done Comments [...]
--- OUTSIDE RECORDS SUMMARY | 2023-07-29 20:48 | External Medical Summary ---
Author Name Unknown Address Unknown Organization [facility] [place] [address] - [address] [place] [address] Laboratory Report Ordering Provider Test Date Status EMILY JAMES 05/15/2023 12:05:38 Final Observation Date Value Abnormality Reference (Units ) Status Glucose, 2-hr post glucose challenge 05/15/2023 12:05:38 130 70-154 (mg/dL) Final Performing Location [facility] 57-[address] 0 - [address] [place] [address]
--- OUTSIDE RECORDS SUMMARY | 2023-07-29 20:49 | External Medical Summary | Summary of Care ---
Author Name Unknown Organization [facility] Address [address] [place] [address] Phone [phone] Care Team Providers Care Surtass Analyst Name Role Phone Unavailable Primary Care Provider Unavailabl e Reason for Visit * Reason Comments Outpatient Testing Encounter Details Date Type Department Care Team Description 02/06/2023 Laboratory Laboratory, [facility] [address] [place] [id number] [facility] [address] [place] [address] Abnormal GTT (glucose tolerance test) Allergies No known active allergiesdocumented as of this encounter (statuses as of 02/06/2023) Medications Medication Sig Dispensed Refills Start Date [...] Tablet Chewable Take by mouth. 0 Active documented as of this encounter (statuses as of 02/06/2023) Active Problems Problem Noted Date Abnormal GTT (glucose tolerance test) Overview: Failed early 1 hour GTT; 3 hour GTT ordered 02/02/23. Health counseling 01/30/2023 Overview: Problem Action Taken Date entered Entered by Date resolved Current needs or questions Patient denies having any current needs or questions 01/30/2023 Shanelle Cheney RN 01/30/2023 Class 3 obesity 12/29/2022 History of pre-eclampsia 12/29/2022 Overview: 2nd . Induced at 37 weeks. On antihypertensive meds for 6 weeks PP. Family history of carrier of genetic dis ease 12/29/2022 Overview: Patient has a brother with cleft palate and cerebral palsy. Depression complicating , antep artum 01/02/2020 Overview: Zoloft 100mg daily. Hx of cutting. Atypical squamous cells of u ndetermined significance (ASCUS) on Papanicolaou smear of cervix 10/13/2019 Overview: Pap 05/07/2021 (NILM) Pap 10/04/2019 (ASCUS, HPV+) Obesity affecting 10/04/2019 Overview: Class 3 Early glucola Baseline preeclamptic labs Growth u/s every 4wk after 20wks Weekly NST at 34 weeks Consider anesthesia consult Delivery by EDC High-risk 10/04/2019 Last Assessment & Plan: Tdap given in left deltoid today 03/05/2020. Charlotte Alba LPN Estimated Date of Delivery Comme nts Yes 08/05/2023 Based on last me nstrual period of 10/29/2022 documented as of this encounter (statuses as of 02/06/2023) Resolved Problems Problem Noted Date Resolved Date [...] by EDC. Supervision of normal first , [facility] 04/16/2017 11/20/2017 Overview: Patient received flu vaccine. 06/12/2017 Corinne Chun RN 09/25/2017 Tdap Vaccine administered per clinic protocol. Pt given VIS(vaccine information sheet) Corinne Chun RN OCP (oral contraceptive pills) initiation 201404/16/2017 Obesity, pediatric, BMI 95th to 98th percentile for age 0501/13/2015 10/23/2017 Anxiety state 05/06/2011 04/18/2020 documented as of this encounter (statuses as of 02/06/2023) Immunizations Name Administration Dates Next Due DTaP - Dipth/Tet/Acell Pertussis 003,01/22/1999,02/16/1998,11/07,1997 HIB 4 dose (Acthib) 06/12/1998, 8,1997,09/05 HPV Vaccine, 4-Valent 01/10/2015,05/29/2014,07/0 02/2014 Haemophilus B (HIB) 1997,1997 Hepatitis B, 0-19 yrs 02/16/1998,1997,05/31 IPV - Polio Virus Vaccine (Inact) 04/20/2003,05/1998,1997 MMR - Measles/Mumps/Rubella Vaccine 04/20/2003 Meningococcal Conjugate Vacc ine (Menactra/Menveo) 03/06/2014 OPV - Polio Virus Vaccine (Oral) 06/12/1998 Seasonal Influenza, Quadriva lent, No Preserve, 6 Mons & Above, IM 06/12/2017 Seasonal Influenza, Split, I IV3, With [...] Encounters Date Type Specialty Care Team Description 02/27/2023 Office Visit Gynecology Obstetrics Indigo Laura PA-C [address] [place] [id number] Nurse [facility] [address] [place] [address] Pending Results Name Type Priority Associated Diagnoses Date /Time GESTATIONAL GLUCOSE TOLERANCE, 3 HOUR Lab Routine Abnormal GTT (glucose tolerance test) 02/06/2023 7:56 AM EDT 100-G GESTATIONAL GLUCOSE, 2 HOUR Lab Routine Abnormal GTT (glucose tolerance test) 02/06/2023 10:09 AM EDT 100-G GESTATIONAL GLUCOSE, 3 HOUR Lab Routine Abnormal GTT (glucose tolerance test) 02/06/2023 10:56 AM EDT Health Maintenance Due Date Last Done Comments COVID-19 Vaccine (#1) 1997 Depression Screening, Annual for Pts 12 and Over 04/28/2020 04/28/2019 Influenza Vaccine (FLU shot) (Season Ended) 2023 06/12/2017, 06/12/2017, 06/29/2013 Pap Smear 05/07/2024 [...] Date/Time Associated Diagnosis Comments 100-G GESTATIONAL GLUCOSE, 1 HOUR Routine 02/06/2023 8:59 AM EDT Abnormal GTT (glucose tolerance test) 100-G GESTATIONAL GLUCOSE, FASTING Routine 02/06/2023 7:56 AM EDT Abnormal GTT (glucose tolerance test) documented in this encounter Results * 100-G GESTATIONAL GLUCOSE, 1 HOUR (02/06/2023 8:59 AM EDT) 100-g Gestational Glucose, 1 Hour 134 70 - 179 mg/dL 02/06/2023 10:56 AM EDT [facility] Blood Venous blood specimen / Unknown Venipuncture / Unknown 02/06/2023 8:59 AM EDT 02/06/2023 8:59 AM EDT Kirsten Law CNM LAB BLOOD ORDERABLES [facility] [address] [place] [id number] * (ABNORMAL) 100-G GESTATIONAL GLUCOSE, FASTING (02/06/2023 7:56 AM EDT) 100-g Gestational Glucose, Fasting 95(H) 70 - 94 mg/dL 02/06/2023 8:33 AM EDT [facility] Blood Venous blood specimen / Unknown Venipuncture / Unknown 02/06/2023 7:56 AM EDT 02/06/2023 7:56 AM EDT Narrative [facility] - 02/06/2023 8:33 AM EDT Based on ACOG guideline, gestational diabetes mellitus is diagnosed when any of the following is met: Fasting is greater than or equal to 95 mg/dL 1 hour is greater than or equal to 180 mg/dL 2 hour is greater than or equal to 155 mg/dL 3 hour is greater than or equal to 140 mg/dL Kirsten Law CNM LAB BLOOD ORDERABLES [facility] [place] [id number] documented in this encounter Visit Diagnoses Diagnosis Abnormal GTT (glucose tolerance test) Impaired glucose tolerance test documented in this encounter
--- OUTSIDE RECORDS SUMMARY | 2023-07-29 20:49 | External Medical Summary | Summary of Care ---
Author Name Unknown Organization [facility] Address [address] [facility] [address] Phone [phone] Care Team Providers Care Hotel Superintendent Name Role Phone Unavailable Primary Care Provider Unavailabl e Reason for Visit * Reason Onset Date Comments Scheduling 04/06/2023 Encounter Details Date Type Department Care Team Description 04/06/2023 Telephone Gynecology/Obstetrics [facility] [address] [place] [id number] Indigo Laura PA-C [address] [place] [address] Scheduling Allergies No known active allergiesdocumented as of this encounter (statuses as of 04/07/2023) Medications Medication Sig Dispensed Refills Start Date [...] as of this encounter (statuses as of 04/07/2023) Active Problems Problem Noted Date Abnormal GTT [...] Encounters: 02/27/23 118/70 01/30/23 120/74 12/29/22 120/78 09/07/21 112/78 05/03/20 156/100 04/30/20 134/76 04/26/20 128/80 [...] Discussed etiology of the condition. Occurs in ~[id number] live births. Causes for cleft lip and [...] as of this encounter (statuses as of 04/07/2023) Resolved Problems Problem Noted Date Resolved Date [...] as of this encounter (statuses as of 04/07/2023) Immunizations Name Administration Dates Next Due HPV Vaccine, 4-Valent 01/10/2015,05/29/2014,02/2014 Meningococcal Conjugate Vacc ine (Menactra/Menveo) 03/06/2014 Seasonal Influenza, Quadriva lent, No Preserve, 6 [...] encounter Miscellaneous Notes * Telephone Encounter - ARCHANA Cadet - 04/07/2023 8:36 AM EDT Apt scheduled * Telephone Encounter - Indigo Laura PA-C - 04/06/2023 4:54 PM EDT Patient needs growth ultrasound with next appointment. Please assist in scheduling. documented in this encounter Plan of Treatment Upcoming Encounters Date Type Specialty Care Team Description 04/17/2023 Imaging Radiology 04/17/2023 Office Visit Gynecology Obstetrics Indigo Laura PA-C [address] [place] [id number] Scheduled Orders Name Type Priority Associated Diagnoses Orde r Schedule US PREG FOLLOW-UP EACH FETUS Medical Imaging Routine Supervision of high risk in second trimester Obesity in , antepartum Expected: 04/16/2023, Expires: 05/07/2024 Health Maintenance Due Date Last Done Comments [...] risk in second trimester- Primary Unspecified high-risk Obesity in , antepartum Obesity complicating , childbirth, or the puerperium, antepartum condition or complication documented in this encounter
--- OUTSIDE RECORDS SUMMARY | 2023-07-29 20:49 | External Medical Summary | Summary of Care ---
Author Name Unknown Organization [facility] Address [address] [place] [address] Phone [phone] Care Team Providers Care Shot Fireman Name Role Phone Unavailable Primary Care Provider Unavailabl e Reason for Visit * Reason Comments Consultation Class 3 obesity, his tory of preeclampsia Encounter Details Date Type Department Care Team Description 03/10/2023 Telemedicine [facility] Ob[facility], [place] [address] [place], [place] [id number] Ninfa Persaud CRNP [address] [place], [place] [id number] Obesity affecting , antepartum*; History of pre-eclampsia; Family history of defect; Depression complicating , antepartum; Supervision of high risk in second trimester Allergies No known active allergiesdocumented as of this encounter (statuses as of 03/10/2023) Medications Medication Sig Dispensed Refills Start Date [...] Miconazole Nitrate 2 % Vaginal Cream (Monistat 7)Indications:High -risk in second trimester,Urinary tract infection in mother during second trimester of Administer into the vagina daily. For 5 days. 45 g 0 02/27/2023 Active Aspirin 81 MG Oral Tablet Chewable (Aspirin 81)Indications:His tory of pre-eclampsia,Obes ity affecting in second trimester Take 1 Tablet by mouth in the morning. Start taking this medication at 12 weeks gestation and continue until delivery. 30 Tablet 3 02/27/2023 06/27/2023 Active documented as of this encounter (statuses as of 03/10/2023) Active Problems Problem Noted Date Abnormal GTT [...] or questions 02/27/2023 Shanelle Cheney RN 02/27/2023 Class 3 obesity 12/29/2022 History of pre-eclampsia [...] 134/76 04/26/20 128/80 04/23/20 132/86 04/18/20 124/76 08/05/20 120/80 Last Assessment & Plan: CONSIDERATIONS: Discussed [...] Discussed etiology of the condition. Occurs in ~[id number] live births. Causes for cleft lip and [...] as of this encounter (statuses as of 03/10/2023) Resolved Problems Problem Noted Date Resolved Date [...] as of this encounter (statuses as of 03/10/2023) Immunizations Name Administration Dates Next Due HPV [...] as of this encounter Progress Notes * EMILY Stern - 03/10/2023 10:09 AM EDT MATERNAL MEDICINE CONSULT Rosalba Chauhan Consult date: 03/10/23 REFERRING PROVIDER: Kirsten Law CNM Patient location: HOME. I was in a hospital or clinic location. After connecting through [employer],patient was verified with two unique identifiers. Patient (or authorized legal credit resolution representative) was then informed that this was a Telemedicine visit and being conducted confidentially over secure lines. Methods to assure confidentiality were taken. Patient acknowledged consent and understanding of pr ivacy and security of the Telemedicine visit. The patient agreed to participate. Rosalba Chauhan is a 27 year old with intrauterine at 18w6d (Estimated Date of Delivery: 08/05/23 by exact LMP) who presents today for an MFM consult due to class 3 obesity, history ofpreeclampsia in second , history of depression and family history of defect. HPI/CURRENT : pre- BMI=class 3 obesity (Pregravid weight: 287 pounds; 5' 7"); FOB Isaías; complicated by above. Genetic testing: Low Risk Cell Free DNA OB [facility] HBP Problems (from 12/15/22 to present) Problem Noted Resolved History of pre-eclampsia Overview Addendum 03/10/2023 10:08 AM by EMILY Stern Preeclampsia with second May 2020 Induced at [...] 128/80 04/23/20 132/86 04/18/20 124/76 04/04/20 120/80 Family history of defect Overview Addendum 03/09/2023 4:13 PM by EMILY Stern Patient has a brother with cleft palate and cerebral palsy Depression complicating , antepartum Overview Addendum 03/10/2023 10:08 AM by EMILY Stern History of depression History of self harm: cutting Zoloft 100mg daily Reports a stable mood in . Denies any suicidal or homicidal ideation. Reports she has a good support system at home. Obesity affecting Overview Addendum 03/10/2023 10:08 AM by EMILY Stern Pre gravid BMI: 44.6 Class 3 obesity Lab Results Component Value Date/Time 50-G GESTATIONAL GLUCOSE, 1 HOUR - [facility] 154 (H) 01/30/2023 10:37 AM 100-G GESTATIONAL GLUCOSE, 1 HOUR - [facility] 134 02/06/2023 08:59 AM 100-G GESTATIONAL GLUCOSE, 2 HOUR - [facility] 112 02/06/2023 10:09 AM 100-G GESTATIONAL GLUCOSE, 3 HOUR - [facility] 99 02/06/2023 10:56 AM 100-G GESTATIONAL GLUCOSE, FASTING - [facility] 95 (H) 02/06/2023 07:56 AM I have reviewed this patient's previous OB ultrasound reports, pertinent labwork and testing provided by her referring OB provider. Current Outpatient Medications Medication Sig Dispense Refill Aspirin 81 MG Oral Tablet Chewable (Aspirin 81) Take 1 Tablet by mouth in the morning. Start taking this medication at 12 weeks gestation and continue until delivery. 30 Tablet 3 Famotidine 10 MG OR TABS Take 0.5 Tablets by mouth in the morning and 0.5 Tablets before bedtime. Meclizine HCl 12.5 MG Oral Tablet (Antivert) Take 1 Tablet by mouth 3 times a day as needed. Miconazole Nitrate 2 % Vaginal Cream (Monistat 7) Administer into the vagina daily. For 5 days.45 g 0 19 29-1 MG Oral Tablet Chewable Take by mouth. Sertraline HCl 100 MG Oral Tablet Take 1 Tablet by mouth in the morning. No current facility-administered medications for this visit. Review of patient's allergies indicates: No Known Allergies OB History Para Term AB Living 3 2 2 0 0 2 SAB IAB Ectopic Multiple Live Births 0 0 0 0 2 # Outcome Date GA Lbr Kunal/2nd Weight Sex Delivery Anes PTL Lv 3 Current 2 Term 05/03/20 37w0d 3.254 kg (7 lb 2.8 oz) F Vag-Spont N KAJAL Comments: Diagnosed with PEC at 37w and induced that day 1 Term 11/20/17 40w0d 3.487 kg (7 lb 11 oz) F Vag-Spont EPI KAJAL Comments: No problems Complications: Second degree perineal laceration Obstetric Comments [phone]: FOB#1: Isaías, age 34, healthy, no children from other relationships Daughters are healthy Past Medical History: Diagnosis Date Anxiety Atypical squamous cells of undetermined significance (ASCUS) on Papanicolaou smear of cervix 10/13/2019 Depression Eating disorder, unspecified 10/04/2019 At age 18 patient states she was [...] during this time. Patient states she is consciou History of pre-eclampsia 12/29/2022 2nd . Induced at 37 weeks. On antihypertensive meds for 6 weeks PP. Past Surgical History: Procedure Laterality Date DENTAL SURGERY PROCEDURE NEC 2015 Family History Problem Relation Age of Onset Hypertension Father No Known Problems Sister Diabetes Mother Diabetes Grandmother (Maternal) Diabetes Grandmother (Paternal) Cancer Grandmother (Paternal) lung Heart disease Grandfather (Maternal) Heart disease Aunt (Unspecified) Cerebral palsy Brother Other (cleft palate) Brother Cerebral palsy Brother No Known Problems Brother No Known Problems Brother Social History Tobacco Use Smoking status: Former Types: Cigarettes Quit date: 2013 Years since quittin.5 Smokeless tobacco: Never Substance Use Topics Alcohol use: Not Currently Drug use: No REVIEW OF SYSTEMS: headaches: yes, takes Tylenol with some relief nausea/vomiting: denies reports movement: yes abdominal pain/tenderness/cramping/contractions: no vaginal bleeding: no vaginal leaking of fluid: no all other systems negative PHYSICAL EXAM: LMP 10/29/2022 General: Well appearing Psych: Alert to time, place, and person and Pleasant DISCUSSION/RECOMMENDATIONS: Problem List Items Addressed This Visit OB [facility] HBP Obesity affecting - Primary CONSIDERATIONS: Discussed obstetrical risks associated with class III obesity (pre- BMI of greater thanor equal to 40) Reviewed that the accuracy [...] anatomy at 20 weeks and for growth every4 weeks thereafter. For patients with Class 3 obesity, we recommend baseline preeclamptic labs with CBC, serum AST/ALT/creatinine and 24 hour urine protein GALINDO if not already done. For patients with Class 3 obesity, we recommend weekly surveillance starting at 34 weeks and delivery by EDC. Recommend anesthesia consult during the antepartum period. Depression complicating , antepartum ANXIETY AND DEPRESSION CONSIDERATIONS: Untreated maternal anxiety [...] to behavioral health services as clinically indicated. History of pre-eclampsia CONSIDERATIONS: Discussed that the overall recurrence rate for pre-eclampsia is 20%. The recurrence risk of pre-eclampsia is 5-7% if it was uncomplicated pre-eclampsia in the prior . If it was pre-eclampsia with severe features in the prior , the recurrence risk goes up to 30-65%. Explained to patient that risk factors for development of pre-eclampsia include the primigravidstate, history of pre-eclampsia in previous , family history of pre-eclampsia, presence ofchronic hypertension, increased BMI, multiple gestation, pre-existing maternal renal disease or diabetes, advanced maternal age, antiphospholipid syndrome and other coagulopathies, chronic maternal autoimmune disease, or prolonged interval between pregnancies. Discussed with patient that the risks associated with a diagnosis of pre- eclampsia which is notmonitored and not managed appropriately include development of [...] managed appropriately to reduce the incidence of as sociated maternal and risks. Reviewed that pre-eclampsia and HELLP are not preventable conditions. There is some evidence that daily ASA 81mg may decrease the risk for recurrence in patients with a history of pre-eclampsia prior to 34 weeks and we recommend that she proceed with starting this therapy after 12 weeks. Family history of defect Discussed etiology of the condition. Occurs in ~[id number] live births. Causes for cleft lip and palate include genetic syndromes, maternal exposures, multifactorial inheritance, Gurvinder-Eh sequence. May have associated anomalies in 35-65% of cases, most common may be spinal, cardiac or intracranial. About 60% are isolated. Ten percent may be chromosomal, 20% may be syndromic (>350 syndromes identified). If isolated, typically multifactorial inheritance. Maternal exposure that may play a rolein development of cleft lip/palate may include ETOH, tobacco, infections, medications, or hyperthermia. Recurrence risk is 4- 6% with immediate family member with cleft lip and palate. Follow up ultrasound with Maternal Medicine is scheduled on 03/18/[address] Choudhury for anatomy scan secondary to class 3 obesity, history of preeclampsia in second , history of depression and family history of defect. Patient is aware of upcoming MFM appointment. Total time spent face to face in this visit was 30 minutes of which more than 50% was spent discussing and counseling the patient/caregiver(s) regarding Discussed etiology of the condition. Occurs in~[id number] live births. Causes for cleft lip and [...] role in development of cleft lip/palate may includeETOH, tobacco, infections, medications, or hyperthermia. Recurrence risk is 4- 6% with immediate family member with cleft lip and palate. Total time spent on this date of service including non face to face was 45 minutes in preparation, delivery, and documentation of care provided to Rosalba Chauhan, excluding time spent in performance of separately billable services. Details outlined above in impression and plan. EMILY Stern 03/10/2023 10:20 AM documented in this encounter Miscellaneous Notes * Assessment & Plan Note - EMILY Stern - 03/10/2023 10:16 AM EDT Associated Problem(s): Family history of defect Discussed etiology of the condition. Occurs in ~[id number] live births. Causes for cleft lip and palate include genetic syndromes, maternal exposures, multifactorial inheritance, Gurvinder-Eh sequence. May have associated anomalies in 35-65% of cases, most common may be spinal, cardiac or intracranial. About 60% are isolated. Ten percent may be chromosomal, 20% may be syndromic (>350 syndromes identified). If isolated, typically multifactorial inheritance. Maternal exposure that may play a rolein development of cleft lip/palate may include ETOH, tobacco, infections, medications, or hyperthermia. Recurrence risk is 4- 6% with immediate family member with cleft lip and palate. * Assessment & Plan Note - EMILY Stern - 03/10/2023 10:08 AM EDT Associated Problem(s): Depression complicating , antepartum ANXIETY AND DEPRESSION CONSIDERATIONS: Untreated maternal anxiety [...] to behavioral health services as clinically indicated. * Assessment & Plan Note - EMILY Stern - 03/10/2023 10:01 AM EDT Associated Problem(s): History of pre-eclampsia CONSIDERATIONS: Discussed that the overall recurrence rate for pre-eclampsia is 20%. The recurrence risk of pre-eclampsia is 5-7% if it was uncomplicated pre-eclampsia in the prior . If it was pre-eclampsia with severe features in the prior , the recurrence risk goes up to 30-65%. Explained to patient that risk factors for development of pre-eclampsia include the primigravidstate, history of pre-eclampsia in previous , family history of pre-eclampsia, presence ofchronic hypertension, increased BMI, multiple gestation, pre-existing maternal renal disease or diabetes, advanced maternal age, antiphospholipid syndrome and other coagulopathies, chronic maternal autoimmune disease, or prolonged interval between pregnancies. Discussed with patient that the risks associated with a diagnosis of pre- eclampsia which is notmonitored and not managed appropriately include development of [...] managed appropriately to reduce the incidence of as sociated maternal and risks. Reviewed that pre-eclampsia and HELLP are not preventable conditions. There is some evidence that daily ASA 81mg may decrease the risk for recurrence in patients with a history of pre-eclampsia prior to 34 weeks and we recommend that she proceed with starting this therapy after 12 weeks. * Assessment & Plan Note - EMILY Stern - 03/10/2023 9:57 AM EDT Associated Problem(s): Obesity affecting CONSIDERATIONS: Discussed obstetrical risks associated with class III obesity (pre- BMI of greater thanor equal to 40) Reviewed that the accuracy [...] anatomy at 20 weeks and for growth every4 weeks thereafter. For patients with Class 3 obesity, we recommend baseline preeclamptic labs with CBC, serum AST/ALT/creatinine and 24 hour urine protein GALINDO if not already done. For patients with Class 3 obesity, we recommend weekly surveillance starting at 34 weeks and delivery by EDC. Recommend anesthesia consult during the antepartum period. documented in this encounter Plan of Treatment Upcoming Encounters Date Type Specialty Care Team Description 03/18/2023 Imaging Radiology 03/18/2023 Office Visit Gynecology Obstetrics Indigo Laura PA-C [address] [place] [id number] Nurse [facility] [address] [place] [id number] Health Maintenance Due Date Last Done Comments [...] encounter Visit Diagnoses Diagnosis Obesity affecting , antepartum- Primary History of pre-eclampsia Family history of defect Family history of congenital anomalies Depression complicating , antepartum Mental disorders of mother, antepartum Supervision of high risk in second trimester Unspecified high-risk documented in this encounter
--- OUTSIDE RECORDS SUMMARY | 2023-07-29 20:49 | External Medical Summary ---
Author Name Unknown Address Unknown Organization : Laboratory Report Ordering Provider Test Date Status EMILY JAMES 03/18/2023 12:17:39 Final Observation Date Value Abnormality Reference (Units ) Status INTERPRETATION 03/18/2023 12:17:39 SEE BELOW Final Screen negative for open NTD . RISK FOR ONTD 03/18/2023 12:17:39 1:2573 Final CALC'D GESTATIONAL AGE 0703/18/2023 12:17:39 20 Final AFP, SERUM 03/18/2023 12:17:39 45.0 (ng/mL) Final AFP MOM 03/18/2023 12:17:39 1.12 Final Reference Range:
NTD <2 .50
IDD <1.90
TWINS <4.00
TWINS IDD <3.50
TRIPLETS <4.50
The AFP test result indicates that this patient is
screen negative for open NTD. It should be noted
that normal test results can never guarantee the
of a normal baby and that 2-3% of newborns
have some type of physical or mental defect, many
of which are undetectable through any known
diagnostic technique.
This is a screening test, not a diagnostic test.
This risk assessment report is based in part on
demographic data provided by the ordering
physician. Please notify the laboratory promptly
if any data are incorrect. For assistance with
recalculations, please call your local [facility] laboratory. For assistance with
interpretation of these results, please contact
your Local [facility] genetic counselor or
call [phone] ([phone]).
Interpretive Cutoffs
Screen Positive for Open NTD:
> or = 2.50 adjusted MOM
> or = 1.90 adjusted MOM for insulin-dependent diabetics
> or = 4.00 adjusted MOM for twins
> or = 3.50 adjusted MOM for twins insulin-dependent diabetics
> or = 4.50 adjusted MOM for triplets
For additional information, please refer to
[email or web address]
(This link is being provided for
informational/educational purposes only.) DATE OF 03/18/2023 12:17:39 1995 Final COLLECTION DATE 03/18/2023 12:17:39 03/18/2023 Final MATERNAL WEIGHT 03/18/2023 12:17:39 282 (lbs ) Final EST'D DATE OF DELIVERY 03/18/2023 12:17:39 08/05/2023 Final DAYANNA DETERMINED BY 03/18/2023 12:17:39 NG Final MOTHER'S ETHNIC ORIGIN 03/18/2023 12:17:39 WHITE Final NUMBER OF FETUSES 03/18/2023 12:17:39 1 Final INSULIN DEPEND DIABETIC 03/18/2023 12:17:39 NO Final REPEAT SPECIMEN 03/18/2023 12:17:39 NO Final HX OF NEURAL TUBE DEFECTS 03/18/2023 12:17:39 NO Final PREV DOWN SYND 03/18/2023 12:17:39 NO Final DONOR EGG 03/18/2023 12:17:39 NO Final DONOR AGE: EGG RETRIEVAL 03/18/2023 12:17:39 NOT GIVEN Final Test performed by [facility]
[address],
[place] [address]

Social Media Director: Alta Henao MD,PHD,ALDO
Test Reported by Finesse Machado,
[facility],
[address] [place], [place]
Mark Kelly M.D., Ph.D., Director of Laboratories
, [facility] [id number] Performing Location
--- OUTSIDE RECORDS SUMMARY | 2023-07-29 20:49 | External Medical Summary | Summary of Care ---
Author Name Unknown Organization [facility] Address [address] [place] [address] Phone [phone] Care Team Providers Care Family Preservation Worker Name Role Phone Unavailable Primary Care Provider Unavailabl e Reason for Visit * Reason Comments Outpatient Testing Encounter Details Date Type Department Care Team Description 03/18/2023 Laboratory Laboratory, [facility] [address] [place] [address] [facility] [address] [place] [address] Arrived Allergies No known active allergiesdocumented as of this encounter (statuses as of 03/18/2023) Medications Medication Sig Dispensed Refills Start Date [...] as of this encounter (statuses as of 03/18/2023) Active Problems Problem Noted Date Abnormal GTT [...] Discussed etiology of the condition. Occurs in ~[id number] live births. Causes for cleft lip and [...] as of this encounter (statuses as of 03/18/2023) Resolved Problems Problem Noted Date Resolved Date [...] as of this encounter (statuses as of 03/18/2023) Immunizations Name Administration Dates Next Due HPV [...] Encounters Date Type Specialty Care Team Description 04/03/2023 Imaging Radiology 04/17/2023 Office Visit Gynecology Obstetrics Indigo Laura PA-C [address] [place] [address] Health Maintenance Due Date Last Done Comments [...]
--- OUTSIDE RECORDS SUMMARY | 2023-07-29 20:49 | External Medical Summary | Summary of Care ---
Author Name Unknown Organization [facility] Address [address] [place] [address] Phone [phone] Care Team Providers Care Accreditation Specialist Name Role Phone Unavailable Primary Care Provider Unavailabl e Reason for Visit * Reason Comments Outpatient Testing Encounter Details Date Type Department Care Team Description 02/06/2023 Laboratory Laboratory, [facility] [address] [place] [address] [facility] [address] [place] [address] Abnormal GTT (glucose tolerance test) Allergies No [...] by EDC. Supervision of normal first , [facility] 04/16/2017 11/20/2017 Overview: Patient received [...] Indigo Laura PA-C [address] [place] [address] Nurse Merlin [facility] Return Ever [address] [place] [address] Pending Results Name Type Priority Associated Diagnoses Date /Time GESTATIONAL GLUCOSE TOLERANCE, 3 HOUR Lab Routine Abnormal GTT (glucose tolerance test) 02/06/2023 7:56 AM EDT 100-G GESTATIONAL GLUCOSE, 1 HOUR Lab Routine Abnormal GTT (glucose tolerance test) 02/06/2023 8:59 AM EDT 100-G GESTATIONAL GLUCOSE, 2 HOUR Lab Routine Abnormal GTT (glucose tolerance test) 02/06/2023 10:09 AM EDT Scheduled Orders Name Type Priority Associated Diagnoses Orde r Schedule 100-G GESTATIONAL GLUCOSE, 3 HOUR Lab Routine Abnormal GTT (glucose tolerance test) Ordered: 02/06/2023 Health Maintenance Due Date Last Done Comments [...] Date/Time Associated Diagnosis Comments 100-G GESTATIONAL GLUCOSE, FASTING Routine 02/06/2023 7:56 AM EDT Abnormal GTT (glucose tolerance test) documented in this encounter Results * (ABNORMAL) 100-G GESTATIONAL GLUCOSE, FASTING (02/06/2023 7:56 AM EDT) 100-g Gestational Glucose, Fasting 95(H) 70 - 94 mg/dL 02/06/2023 8:33 AM EDT LABORATORY [facility] 57-10 Blood Venous blood specimen / Unknown Venipuncture / Unknown 02/06/2023 7:56 AM EDT 02/06/2023 7:56 AM EDT Narrative LABORATORY [facility] 57-10 - 02/06/2023 8:33 AM EDT [...] Kirsten Law CNM LAB BLOOD ORDERABLES LABORATORY [facility] [address] [place] [address] [place] [address] documented in this encounter Visit Diagnoses Diagnosis Abnormal GTT (glucose tolerance test) Impaired glucose tolerance test documented in this encounter
--- OUTSIDE RECORDS SUMMARY | 2023-07-29 20:49 | External Medical Summary ---
Author Name Unknown Address Unknown Organization K01:[facility] - [address] [facility] [address] Laboratory Report Ordering Provider Test Date Status EMILY JAMES 02/27/2023 09:37:28 Final <10,000 colonies/ml mixed no rmal jaxson Observation Date Value Abnormality Reference (Units ) Status Bacteria identified in Unspecified specimen by Culture 02/27/2023 09:37:28 [id number]^ESCHE RICHIA COLI Abnormal Final >100,000 colonies/mL Escheri aspen coli Performing Location [facility] - [address] [facility] [address] Ordering Provider Test Date Status EMILY JAMES 02/27/2023 09:37:28 Final Observation Date Value Abnormality Reference (Units ) Status Ampicillin 02/27/2023 09:37:28 >=32 Resistant Final Ampicillin + Sulbactam 02/27/2023 09:37:28 >=32 Resistant Final Cefazolin 02/27/2023 09:37:28 <=4 Susceptible Final Cefepime susceptibility 02/27/2023 09:37:28 <=1 Susceptible Final Ceftriaxone suceptibility 02/27/2023 09:37:28 <=1 Susceptible Final Ciprofloxacin 02/27/2023 09:37:28 <=0.25 Susceptible Final Due to serious side effects, the FDA has advised against using Ciprofloxacin to treat uncomplicated UTIs and respiratory tract infections unless there are no alternative treatment options. Gentamicin susceptibility 02/27/2023 09:37:28 <=1 Susc eptible Final Nitrofurantoin susceptibility 02/27/2023 09:37:28 <=16 Susceptible Final Piperacillin + Tazobactamsusceptibility 02/27/2023 09:37:28 <=4 Susceptible Final TMP-SMZ susceptibility 02/27/2023 09:37:28 <=20 Suscept ible Final Test: Culture, Urine, Quanti tative
Specimen Source: Urine, Unspecified
Specimen Type: Urine
Specimen Date: 02/27/2023 9:37 AM
Result Date: 03/01/2023 2:47 PM
Result Status: Final result
Abnormal: Yes
Resulting Lab: [facility]
[address]
[facility] [address]

CULTURE

>100,000 colonies/mL Escherichia coli (Abnormal)

<10,000 colonies/ml mixed normal jaxson

SUSCEPTIBILITY

Escherichia coli
METHOD MICROBROTH DILUTIONS

AMPICILLIN >=32 Resistant
AMPICILLIN/SULBACTAM >=32 Resistant
CEFAZOLIN <=4 Susceptible
CEFEPIME <=1 Susceptible
CEFTRIAXONE <=1 Susceptible
CIPROFLOXACIN <=0.25 Susceptible [1]
GENTAMICIN <=1 Susceptible
NITROFURANTOIN <=16 Susceptible
PIPERACILLIN TAZOBACTAM <=4 Susceptible
TRIMETH/SULFAMETHOXAZOLE <=20 Susceptible

[1] Due to serious side effects, the FDA has advised against using
Ciprofloxacin to treat uncomplicated UTIs and respiratory tract infections
unless there are no alternative treatment options.

null Performing Location LAB[facility] - [address] [facility] [address]
--- OUTSIDE RECORDS SUMMARY | 2023-07-29 20:49 | External Medical Summary | Summary of Care ---
Author Name Unknown Organization [facility] Address [address] [place] [place] [address] Phone [phone] Care Team Providers Care Chemical Recovery Operator Name Role Phone Unavailable Primary Care Provider Olga e Encounter Details Date Type Department Care Team Description 02/02/2023 Telephone Gynecology/Obstetrics [facility] [address] [facility] [place] [address] Kirsten Law, [facility] [place] [address] Allergies No known active allergiesdocumented as of this encounter (statuses as of 03/04/2023) Medications Medication Sig Dispensed Refills Start Date [...] as of this encounter (statuses as of 03/04/2023) Active Problems Problem Noted Date Abnormal GTT [...] as of this encounter (statuses as of 03/04/2023) Resolved Problems Problem Noted Date Resolved Date [...] as of this encounter (statuses as of 03/04/2023) Immunizations Name Administration Dates Next Due HPV [...] * Telephone Encounter - ARCHANA Cadet - 02/02/2023 2:42 PM EDT Apt scheduled; pt aware * Telephone Encounter - Payton Chowdhury LPN - 02/02/2023 2:27 PM EDT Spoke to pt, verified and advised of results below. Pt verbalized understanding. Caity, Can you assist with scheduling 3hr gtt? * Telephone Encounter - Payton Chowdhury LPN - 02/02/2023 2:27 PM EDT ----- Message from Kirsten Law CNM sent at 02/02/2023 9:05 AM EDT ----- Please let patient know she did not pass her 1 hour GTT. She needs to complete a 3 hour GTT, she should be fasting for. Please assist with scheduling. Thanks! Kirsten E Law, CNM documented in this encounter Plan of Treatment Upcoming Encounters Date Type Specialty Care Team Description 03/18/2023 Imaging Radiology 03/18/2023 Office Visit Gynecology Obstetrics Indigo Laura PA-C [address] [place] [address] Nurse Merlin [facility] Return Ever [address] [place] [address] Health Maintenance Due Date Last Done Comments [...]
--- OUTSIDE RECORDS SUMMARY | 2023-07-29 20:49 | External Medical Summary | Summary of Care ---
Author Name Unknown Organization [facility] Address [address] [place] [place] [address] Phone [phone] Care Team Providers Care Manufacturing Plant Controller Name Role Phone Unavailable Primary Care Provider Unavailabl e Reason for Visit * Reason Comments [facility] Return Encounter Details Date Type Department Care Team Description 03/18/2023 Office Visit Gynecology/Obstetric s Moy Boyer [address] [place] [address] Indigo Laura PA-C [address] [place] [address] Nurse Merlin [facility] Return Ever [address] [facility] [address] Supervision of high risk in second trimester*; History of pre-eclampsia; Family history of defect; Obesity affecting in second trimester; Depression complicating , antepartum; Encounter for follow-up ultrasound of anatomy Allergies No known active allergiesdocumented as of [...] Discussed etiology of the condition. Occurs in ~[id number] live births. Causes for cleft lip and [...] Sign Reading Time Taken Comments Blood Pressure 108/66 03/18/2023 11:22 AM EDT Pulse - - Temperature - - Respiratory Rate - - Oxygen Saturation - - Inhaled Oxygen Concentration - - Weight 128.4 kg (283 lb) 03/18/2023 11:22 AM EDT Height 170.2 cm (5' 7") 03/18/2023 11:22 AM EDT Body Mass Index 44.32 03/18/2023 11:22 AM EDT documented in this encounter Progress Notes * Indigo Laura PA-C - 03/18/2023 12:02 PM EDT 20w0d Without complaints. Had MFM consult 03/10/2023. Completed anatomy ultrasound here locally today. +FHT with ultrasound. Needs follow up for missed views in 2 weeks. Orders placed. Pt is declining MFM anatomy/ultrasound at this time. States she would be agreeable to seeing them in future should there be any additional concerns where this is necessary. Counseled on MSAFP screen for ONTD. Patient would like to complete today. Orders placed, pt to go to lab following appt. Breast pump order signed. Repeat urine culture collected, UTI that was treated with last visit. Pt denies symptoms. Denies leaking/bleeding/contractions. She is feeling baby. RTC in 4 weeks Indigo Laura PA-C documented in this encounter Nursing Notes * Shanelle Cheney RN - 03/18/2023 11:42 AM EDT Patient seen by [facility] Irradiated Fuel Handler. Patient denies any questions or concerns. Requesting breast pump RX. Pended order for provider to sign, will then send to [facility]. They will reach out to patient. Shanelle Cheney RN * Cookie Sanchez LPN - 03/18/2023 11:22 AM EDT 20w0d Denies concerns Met with M 03/10/23. Had anatomy scan today. documented in this encounter Plan of Treatment Upcoming Encounters Date Type Specialty Care Team Description 04/03/2023 Imaging Radiology 04/17/2023 Office Visit Gynecology Obstetrics Indigo Laura PA-C [address] [place] [address] Pending Results Name Type Priority Associated Diagnoses Date /Time CULTURE, URINE, QUANTITATIVE Lab Routine Supervision of high risk in second trimester 03/18/2023 11:42 AM EDT MATERNAL SERUM AFP Lab Routine Family history of defect Supervision of high risk in second trimester 03/18/2023 12:17 PM EDT Scheduled Orders Name Type Priority Associated Diagnoses Orde r Schedule US PREG LIMITED 1 OR MORE FETUSES Medical Imaging Routine Encounter for follow-up ultrasound of anatomy Expected: 04/01/2023, Expires: 04/18/2024 Health Maintenance Due Date Last Done Comments [...] Comments URINALYSIS, POINT OF CARE (ENTER/EDIT) Routine 03/18/2023 Supervision of high risk in second trimester documented in this encounter Results * URINALYSIS, POINT OF CARE (ENTER/EDIT) (03/18/2023) Color, Urine Yellow Yellow or Light Yellow Clarity, Urine Clear Clear Glucose, Urine Negative Negative mg/dL Bilirubin, Urine Negative Negative Ketone, Urine Negative Negative mg/dL Specific [place], Urine 1.030 1.003 - 1.030 Blood, Urine Negative Negative pH, Urine 7.0 5.0 - 7.5 units Protein, Urine Negative Negative mg/dL Urobilinogen, Urine 0.2 0.2 - 1.0 mg/dL Nitrite, Urine Negative Negative Esterase, Urine Small Negative Urine 03/18/2023 Indigo Laura PA-C LAB POINT OF CARE TE ST ENTER/EDIT ORDERABLES documented in this encounter Visit Diagnoses Diagnosis Supervision of high risk in second trimester- Primary Unspecified high-risk History of pre-eclampsia Family history of defect Family history of congenital anomalies Obesity affecting in second trimester Depression complicating , antepartum Mental disorders of mother, antepartum Encounter for follow-up ultrasound of anatomy documented in this encounter
--- OUTSIDE RECORDS SUMMARY | 2023-07-29 20:49 | External Medical Summary | Summary of Care ---
Author Name Unknown Organization [facility] Address [address] [place] [address] Phone [phone] Care Team Providers Care Truck Car And Bus Cleaner Name Role Phone Unavailable Primary Care Provider Olga e Encounter Details Date Type Department Care Team Description 01/29/2023 Telephone Gynecology/Obstetrics [facility] [address] [place], [place] [id number] [facility] [address] [place] [address] Allergies No known active allergiesdocumented as of this encounter (statuses as of 02/09/2023) Medications Medication Sig Dispensed Refills Start Date [...] as of this encounter (statuses as of 02/09/2023) Active Problems Problem Noted Date Abnormal GTT [...] as of this encounter (statuses as of 02/09/2023) Resolved Problems Problem Noted Date Resolved Date [...] by EDC. Supervision of normal first , [facility] 04/16/2017 11/20/2017 Overview: Patient received flu vaccine. 06/12/2017 Corinne Chun RN 09/25/2017 Tdap Vaccine administered per clinic protocol. Pt given VIS(vaccine information sheet) Corinne Chun RN OCP (oral contraceptive pills) initiation 201404/16/2017 Obesity, pediatric, BMI 95th to 98th percentile for age 0501/13/2015 10/23/2017 Anxiety state 05/06/2011 04/18/2020 documented as of this encounter (statuses as of 02/09/2023) Immunizations Name Administration Dates Next Due HPV Vaccine, 4-Valent 01/10/2015,05/29/2014,0702/2014 Meningococcal Conjugate Vacc ine (Menactra/Menveo) 03/06/2014 Seasonal [...] encounter Miscellaneous Notes * Telephone Encounter - Eh Espino RN - 02/09/2023 12:38 PM EDT 24 hour urine completed * Telephone Encounter - Eh Espino RN - 02/02/2023 10:00 AM EDT LMTRC * Telephone Encounter - Ting Casey RN - 01/29/2023 3:30 PM EDT T/C to pt. No answer. VM left for pt to return call to office. * Telephone Encounter - Ting Casey RN - 01/29/2023 3:30 PM EDT ----- Message from Kirsten Law CNM sent at 01/29/2023 12:47 PM EDT ----- Please let patient know her urine showed 2+ protein. She needs to complete her 24 hour urine protein as soon as possible. Thanks! Kirsten Law CNM documented in this encounter Plan of Treatment Upcoming Encounters Date Type Specialty Care Team Description 02/27/2023 Office Visit Gynecology Obstetrics Indigo Laura PA-C [address] [place] [address] Nurse Merlin [facility] Return Ever [address] [place] [address] Health Maintenance Due Date Last Done Comments [...]
--- OUTSIDE RECORDS SUMMARY | 2023-07-29 20:49 | External Medical Summary ---
Author Name Unknown Address Unknown Organization K01:LABORATORY [facility] - [address] [facility] [address] [place] [address] Laboratory Report Ordering Provider Test Date Status EMILY JAMES 03/18/2023 11:42:46 Final Observation Date Value Abnormality Reference (Units) Status Bacteria identified in Unspecified specimen by Culture 03/18/2023 11:42:46 No significant growth Final Test: Culture, Urine, Quanti tative
Specimen Source: Urine, Clean Catch
Specimen Type: Urine
Specimen Date: 03/18/2023 11:42 AM
Result Date: 03/19/2023 2:32 PM
Result Status: Final result
Resulting Lab: LAB[facility]ATORY [facility]
[address]
[facility] [address]

CULTURE

No significant growth

null Performing Location LABORATORY [facility] - [address] [facility] [address]
--- OUTSIDE RECORDS SUMMARY | 2023-07-29 20:49 | External Medical Summary | Summary of Care ---
Author Name Unknown Organization [facility] Address [address] [facility] [place] [address] Phone [phone] Care Team Providers Care Leasing Representative Name Role Phone Unavailable Primary Care Provider Olga e Encounter Details Date Type Department Care Team Description 02/02/2023 Telephone Gynecology/Obstetrics [facility] [address] [facility] [place] [address] Kirsten Law, [facility] [address] [facility] [place] [address] Allergies No known active allergiesdocumented [...] Encounter - Payton Chowdhury LPN - 02/02/2023 2:29 PM EDT Pt aware. * Telephone Encounter - Payton Chowdhury LPN - 02/02/2023 2:29 PM EDT ----- Message from Kirsten Law CNM sent at 02/02/2023 9:06 AM EDT ----- Please let patient know her 24 hour urine protein was normal. Thanks! documented in this encounter Plan of Treatment Upcoming Encounters Date Type Specialty Care Team Description 03/18/2023 Imaging Radiology 03/18/2023 Office Visit Gynecology Obstetrics Indigo Laura PA-C [address] [place] [address] Nurse Merlin [facility] Return Ever [address] [place] [address] Health Maintenance Due Date Last Done Comments [...]
--- OUTSIDE RECORDS SUMMARY | 2023-07-29 20:49 | External Medical Summary | Summary of Care ---
Author Name Unknown Organization [facility] Address [address] [facility] [place] [address] Phone [phone] Care Team Providers Care Die Filer Name Role Phone Unavailable Primary Care Provider Unavailabl e Reason for Visit * Reason Comments [facility] Return Encounter Details Date Type Department Care Team Description 02/27/2023 Office Visit Gynecology/Obstetric s Moy Boyer [address] [facility] [place] [address] Indigo Laura PA-C [address] [place] [address] Nurse Merlin [facility] Return Ever [address] [facility] [place] [address] High-risk in second trimester*; History of pre-eclampsia; Family history of carrier of genetic disease; Obesity affecting in second trimester; Depression complicating , antepartum; Urinary tract infection in mother during second trimester of ; On aspirin at home Allergies No known active allergiesdocumented as of this encounter (statuses as of 02/27/2023) Medications Medication Sig Dispensed Refills Start Date [...] Tablet Chewable Take by mouth. 0 Active Nitrofurantoin Monohyd Macro 100 MG Oral Capsule (Macrobid)Indicati ons:High-risk in second trimester,Urinary tract infection in mother during second trimester of Take 1 Capsule by mouth in the morning and 1 Capsule before bedtime. Do all this for 5 days. With food. Until gone.. 10 Capsule 0 02/27/2023 03/04/2023 Active Miconazole Nitrate 2 % Vaginal Cream [...] as of this encounter (statuses as of 02/27/2023) Active Problems Problem Noted Date Abnormal GTT [...] as of this encounter (statuses as of 02/27/2023) Resolved Problems Problem Noted Date Resolved Date [...] as of this encounter (statuses as of 02/27/2023) Immunizations Name Administration Dates Next Due HPV [...] Sign Reading Time Taken Comments Blood Pressure 118/70 02/27/2023 9:12 AM EDT Pulse - - Temperature - - Respiratory Rate - - Oxygen Saturation - - Inhaled Oxygen Concentration - - Weight 129.3 kg (285 lb) 02/27/2023 9:12 AM EDT Height 170.2 cm (5' 7") 02/27/2023 9:12 AM EDT Body Mass Index 44.64 02/27/2023 9:12 AM EDT documented in this encounter Progress Notes * Indigo Laura PA-C - 02/27/2023 9:35 AM EDT 17w2d No concerns. Has not schedule with MFM. Reviewed with patient. She states would be willing to see them if recommended. Advised it was, she was given number to call. Recommended she call to schedule these appts secondary to her high risk . She was agreeable. Order placed for anatomy ultrasound given she will need scheduled in about 3 weeks in event she cannot get scheduled with MFM. Advised if she schedules with them, cancel local ultrasound. H/o pre-eclampsia, class III -- has not started baby aspirin 81 mg daily. Recommend she start. She asked if Rx could be sent. UA collected and positive for nitrites. She reports occasional burning when she pees. Denies fever,chills, flank pain. Rx for Macrobid sent while culture pending. Hx of frequent yeast infection following ABX use. Pt requesting Monistat, additional Rx sent. Counseled on MSAFP for ONTD, patient declining today upon counseling. Advised of need to complete before end of 22 weeks. RTC in 3 weeks Indigo Laura PA-C documented in this encounter Nursing Notes * Shanelle Cheney RN - 02/27/2023 9:33 AM EDT Patient seen by [facility] Enterprise Security Architect. Patient denies any questions or concerns. have you cut down with your smoking n/a have you quit n/a have you seen a agriculture sales account manager no have you seen a social work associate no are you receiving counseling no have you received dental care during your no are you enrolled in WIC Yes do you receive food stamps or matta assistance yes Shanelle Cheney RN * Cookie Sanchez LPN - 02/27/2023 9:16 AM EDT 17w2d Denies concerns documented in this encounter Plan of Treatment Upcoming Encounters Date Type Specialty Care Team Description 03/18/2023 Imaging Radiology 03/18/2023 Office Visit Gynecology Obstetrics Indigo Laura PA-C [address] [place] [address] Nurse Merlin [facility] Return Ever [address] [address] Pending Results Name Type Priority Associated Diagnoses Date /Time CULTURE, URINE, QUANTITATIVE Lab Routine High-risk in second trimester 02/27/2023 9:37 AM EDT Scheduled Orders Name Type Priority Associated Diagnoses Orde r Schedule US PREG SINGLE/1ST GEST, 14 WEEKS OR LATER Medical Imaging Routine High-risk in second trimester Expected: 03/13/2023, Expires: 03/29/2024 Health Maintenance Due Date Last Done Comments [...] Comments URINALYSIS, POINT OF CARE (ENTER/EDIT) Routine 02/27/2023 High-risk in second trimester documented in this encounter Results * URINALYSIS, POINT OF CARE (ENTER/EDIT) (02/27/2023) Color, Urine Dark Yellow Yellow or Light Yellow Clarity, Urine Slightly Cloudy Clear Glucose, Urine Negative Negative mg/dL Bilirubin, Urine Negative Negative Ketone, Urine Negative Negative mg/dL Specific [place], Urine 1.030 1.003 - 1.030 Blood, Urine Negative Negative pH, Urine 6.0 5.0 - 7.5 units Protein, Urine Negative Negative mg/dL Urobilinogen, Urine 1.0 0.2 - 1.0 mg/dL Nitrite, Urine Positive Negative Esterase, Urine Trace Negative Urine 02/27/2023 Indigo Laura PA-C LAB POINT OF CARE TE ST ENTER/EDIT ORDERABLES documented in this encounter Visit Diagnoses Diagnosis High-risk in second trimester- Primary History of pre-eclampsia Family history of carrier of genetic disease Family history of genetic disease carrier Obesity affecting in second trimester Depression complicating , antepartum Mental disorders of mother, antepartum Urinary tract infection in mother during second trimester of On aspirin at home documented in this encounter
--- OUTSIDE RECORDS SUMMARY | 2023-07-29 20:50 | External Medical Summary ---
Author Name Unknown Address Unknown Organization [facility] [address] [place] [id number] Laboratory Report Ordering Provider Test Date Status TAY DEXTER 02/06/2023 10:56:12 Final Observation Date Value Abnormality Reference (Units ) Status Glucose [Mass/volume] in Serum or Plasma --3 hours post dose glucose 02/06/2023 10:56:12 99 70-139 (mg/dL) Final Performing Location [facility] [address] [place] [address]
--- OUTSIDE RECORDS SUMMARY | 2023-07-29 20:50 | External Medical Summary | Summary of Care ---
Author Name Unknown Organization [facility] Address [address] [place] [address] Phone [phone] Care Team Providers Care Automated Weaver Name Role Phone Unavailable Primary Care Provider Unavailabl e Reason for Visit * Reason Comments Outpatient Testing Encounter Details Date Type Department Care Team Description 02/06/2023 Laboratory Laboratory, [facility] [address] [place] [address] [facility] [address] [place] [address] Abnormal GTT (glucose tolerance test) Allergies No [...] by EDC. Supervision of normal first , [facility] 04/16/2017 11/20/2017 Overview: Patient received [...] Indigo Laura PA-C [address] [place] [address] Nurse Merlin [facility] Return Ever [address] [place] [address] Pending Results Name Type Priority Associated Diagnoses Date /Time GESTATIONAL GLUCOSE TOLERANCE, 3 HOUR Lab Routine Abnormal GTT (glucose tolerance test) 02/06/2023 7:56 AM EDT 100-G GESTATIONAL GLUCOSE, 1 HOUR Lab Routine Abnormal GTT (glucose tolerance test) 02/06/2023 8:59 AM EDT Scheduled Orders Name Type Priority Associated Diagnoses Orde r Schedule 100-G GESTATIONAL GLUCOSE, 2 HOUR Lab Routine [...] 94 mg/dL 02/06/2023 8:33 AM EDT LABORATORY [facility] 57-10 Blood Venous blood specimen / Unknown Venipuncture / Unknown 02/06/2023 7:56 AM EDT 02/06/2023 7:56 AM EDT Narrative LAB[facility]ATORY [facility] 57-10 - 02/06/2023 8:33 AM EDT [...] Kirsten Law CNM LAB BLOOD ORDERABLES LAB[facility] [address] [facility] [place] [address] documented in this encounter Visit Diagnoses Diagnosis Abnormal GTT (glucose tolerance test) Impaired glucose tolerance test documented in this encounter
--- OUTSIDE RECORDS SUMMARY | 2023-07-29 20:50 | External Medical Summary | Summary of Care ---
Author Name Unknown Organization [facility] Address [address] [facility] [address] Phone [phone] Care Team Providers Care Carding Machine Feeder Name Role Phone Unavailable Primary Care Provider Olga e Encounter Details Date Type Department Care Team Description 02/02/2023 Orders Only Gynecology/Obstetrics [facility] [address] [facility] [place] [address] Kirsten Law, [facility] [address] [facility] [place] [address] Abnormal GTT (glucose tolerance test)* Allergies No known active allergiesdocumented as of this encounter (statuses as of 02/02/2023) Medications Medication Sig Dispensed Refills Start Date [...] as of this encounter (statuses as of 02/02/2023) Active Problems Problem Noted Date Abnormal GTT (glucose tolerance test) Overview: Failed early 1 hour GTT; 3 hour GTT ordered 02/02/23. Health counseling 01/30/2023 Overview: Problem Action Taken Date entered Entered by Date resolved Current needs or questions Patient denies having any current needs or questions 01/30/2023 Shanelle hCeney RN 01/30/2023 Class 3 obesity 12/29/2022 History [...] as of this encounter (statuses as of 02/02/2023) Resolved Problems Problem Noted Date Resolved Date [...] as of this encounter (statuses as of 02/02/2023) Immunizations Name Administration Dates Next Due HPV [...] Indigo Laura PA-C [address] [place] [address] Nurse eMrlin [facility] Return Ever [address] [place] [address] Scheduled Orders Name Type Priority Associated Diagnoses Orde r Schedule GESTATIONAL GLUCOSE TOLERANCE, 3 HOUR Lab Routine Abnormal GTT (glucose tolerance test) Expected: 02/02/2023, Expires: 02/03/2024 Health Maintenance Due Date Last Done Comments [...] as of this encounter Visit Diagnoses Diagnosis Abnormal GTT (glucose tolerance test)- Primary Impaired glucose tolerance test documented in this encounter
--- OUTSIDE RECORDS SUMMARY | 2023-07-29 20:50 | External Medical Summary | Summary of Care ---
Author Name Unknown Organization [facility] Address [address] [place] [address] Phone [phone] Care Team Providers Care Prop Cutter Name Role Phone Unavailable Primary Care Provider Unavailabl e Reason for Visit * Reason Comments Outpatient Testing Encounter Details Date Type Department Care Team Description 02/06/2023 Laboratory Laboratory, [facility] [address] [place] [address] [facility] [address] [place] [address] Abnormal GTT (glucose tolerance test) Allergies No [...] 02/06/2023) Immunizations Name Administration Dates Next Due HPV [...] Indigo Laura PA-C [address] [place] [address] Nurse Merlin [facility] Return Ever [address] [address] Pending Results Name Type Priority Associated Diagnoses Date /Time GESTATIONAL GLUCOSE TOLERANCE, 3 HOUR Lab Routine Abnormal GTT (glucose tolerance test) 02/06/2023 7:56 AM EDT 100-G GESTATIONAL GLUCOSE, FASTING Lab Routine Abnormal GTT (glucose tolerance test) 02/06/2023 7:56 AM EDT Scheduled Orders Name Type Priority Associated Diagnoses Orde r Schedule 100-G GESTATIONAL GLUCOSE, 1 HOUR Lab Routine [...]
--- OUTSIDE RECORDS SUMMARY | 2023-07-29 20:50 | External Medical Summary ---
Author Name Unknown Address Unknown Organization [facility] [address] [place] [id number] Laboratory Report Ordering Provider Test Date Status TAY DEXTER 02/06/2023 08:59:22 Final Observation Date Value Abnormality Reference (Units ) Status Glucose [Mass/volume] in Serum or Plasma --1 hour post dose glucose 02/06/2023 08:59:22 134 70-179 (mg/dL) Final Performing Location [facility] [address] [place] [address]
--- OUTSIDE RECORDS SUMMARY | 2023-07-29 20:50 | External Medical Summary ---
Author Name Unknown Address Unknown Organization [facility] [address] - [address] [place] [address] Laboratory Report Ordering Provider Test Date Status TAY DEXTER 02/06/2023 10:09:43 Final Observation Date Value Abnormality Reference (Units ) Status Glucose, 2-hr post glucose challenge 02/06/2023 10:09:43 112 70-154 (mg/dL) Final Performing Location [facility] [address] [place] [address]
--- OUTSIDE RECORDS SUMMARY | 2023-07-29 20:50 | External Medical Summary ---
Author Name Unknown Address Unknown Organization [facility] [address] [place] [address] Laboratory Report Ordering Provider Test Date Status TAY DEXTER 02/06/2023 07:56:48 Final Based on ACOG guideline, ges tational [...] Abnormality Reference (Units ) Status Glucose, fasting 02/06/2023 07:56:48 95 Above high no rmal 70-94 (mg/dL) Final Performing Location [facility]ORY [facility] [address] [place] [address]
--- OUTSIDE RECORDS SUMMARY | 2023-07-29 20:50 | External Medical Summary | Summary of Care ---
Author Name Unknown Organization [facility] Address [address] [place] [address] Phone [phone] Care Team Providers Care Pantry Chef Name Role Phone Unavailable Primary Care Provider Unavailabl e Reason for Visit * Reason Comments Outpatient Testing Encounter Details Date Type Department Care Team Description 02/06/2023 Laboratory Laboratory, [facility] [address] [place] [address] [facility] [address] [place] [address] Abnormal GTT (glucose tolerance test) Allergies No [...] by EDC. Supervision of normal first , [facility] 04/16/2017 11/20/2017 Overview: Patient received flu [...] Indigo Laura PA-C [address] [place] [address] Nurse Merlin [facility] Return Ever [address] [place] [address] Pending Results Name Type Priority Associated Diagnoses [...] 94 mg/dL 02/06/2023 8:33 AM EDT LAB[facility]ATORY [facility] 57[address]10 Blood Venous blood specimen / Unknown Venipuncture / Unknown 02/06/2023 7:56 AM EDT 02/06/2023 7:56 AM EDT Narrative [facility] 57[address]10 - 02/06/2023 8:33 AM [...] Kirsten Law CNM LAB BLOOD ORDERABLES [facility] [address] [place] [address] documented in this encounter Visit Diagnoses Diagnosis Abnormal GTT (glucose tolerance test) Impaired glucose tolerance test documented in this encounter
[2023-07-29] MEDS ORDERED: DIPHTHERIA/TETANUS/PERTUSSIS Vaccine (Tdap, Age 7+yrs) 0.5mL SYR/VL IM ONE (23:21)
[2023-07-29] MEDS ORDERED: HYDROCORTISONE ACETATE 25 MG SUPP PR PRN (23:21)
[2023-07-29] MEDS ORDERED: BENZOCAINE 20% SPRY 85 APPLN/85 GM CAN EXT PRN (23:21)
[2023-07-29] MEDS ORDERED: oxyCODONE/ACETAMINOPHEN 5mg/325mg TAB PO PRN (23:21)
[2023-07-29] MEDS ORDERED: METHYLERGONOVINE MALEATE 0.2 MG/ML AMP IM ONE (23:21)
[2023-07-29] MEDS ORDERED: MEASLES, MUMPS & RUBELLA VIRUS VACCINE (MMR) VIAL SQ ONE (23:21)
[2023-07-29] MEDS ORDERED: ACETAMINOPHEN 325 MG TAB PO PRN (23:21)
--- NOTE | 2023-07-29 23:23 | Delivery Summary ---
Vaginal Delivery Summary Date of Service July 29, 2023 Vaginal Delivery Summary Patient was found to be fully dilated and desires to push. She pushed with one contraction and delivered the head and then shoulders with minimal traction. The baby was handed off to the mother. The cord was clampedx2 and cut at 1 minute. The vagina and perineum were checked and found to have a small 2nd degree perineal laceration. Rectal exam was done and noted good sphincter tone. The gloves were changes. The vaginal mucosa was repaired with 2/0 vicryl and skin on subcuticular fashion. The placenta was delivered spontaneously as intact and complete. The uterus was explored and found to be empty. EBL was 300 ml. The fundus was firm The baby was a viable female , Apgars 8/9, the weight is pending The mother and the baby tolerated the procedure well. No complications happened and I was present during whole procedure.
[2023-07-30] MEDS: IBUPROFEN 600 MG TAB PO PRN ×5 (01:43→23:17)
[2023-07-30 07:55] LABS: Hematocrit (blood only) 32.1 % (37.0-47.0); Hemoglobin 10.8 g/dl (12.0-16.0); Mean Corpuscular Hemoglobin 26.4 pg (25.0-34.0); Mean Corpuscular Hgb Conc 33.6 g/dL (32.0-36.0); Mean Corpuscular Volume 78.5 fL (80.0-100.0); Mean Platelet Volume 9.7 fL (9.4-12.4); Platelet Count 248 K/uL (130-400); RDW Coefficient of Variation 14.9 % (11.5-14.5); Red Blood Count 4.09 M/uL (4.20-5.40); White Blood Count 11.05 K/ul (4.8-10.8)
--- NOTE | 2023-07-30 08:00 | Anesthesia Procedure Note ---
Date of Service July 30, 2023 Anesthesia Post Epidural Note Vital Signs Vital Signs: Temp Pulse Resp BP Pulse Ox O2 Del Method 36.4 C L 77 18 122/79 98 Room Air 07/30/23 03:40 07/30/23 03:40 07/30/23 03:40 07/30/23 03:40 07/30/23 01:20 07/30/23 01:20 Pain Intensity Bilateral Abdomen: Pain Intensity: 4 Notes Mental Status: alert / awake / arousable and participated in evaluation Patient Amnestic to Procedure: No Nausea / Vomiting: adequately controlled Pain: adequately controlled Airway Patency, RR, SpO2: stable & adequate BP & HR: stable & adequate Hydration State: stable & adequate Neuraxial Anesthesia: was administered and sensory block resolved Anesthetic Complications: no major complications apparent and Pt Satisfied with anesthetic care Epidural: Removed without complications and With tip intact
[2023-07-30] MEDS: DOCUSATE SODIUM 100 MG CAP PO SCH ×2 (08:02→19:58)
[2023-07-30] MEDS: PRENATAL VITAMIN 1 TAB PO SCH (08:02)
[2023-07-30] MEDS: FERROUS SULFATE 325 MG TAB PO SCH (08:02)
[2023-07-30] MEDS: SERTRALINE HCL 100 MG TABLET PO SCH (08:03)
--- NOTE | 2023-07-30 11:24 | Obstetrical Progress Note ---
Date of Service July 30, 2023 Subjective Ambulation: ambulating normally Voiding: no voiding problems Passing Gas:: Yes Diet Tolerance:: regular diet Lochia:: Small Feeding Type:: breast feeding Current Pain Level(1-10): 0 doing well Physical Exam Constitutional WD/WN, vitals as above Gastrointestinal (Abdomen) Inspection/Auscultation: abdomen normal to inspection Musculoskeletal Extremities: extremities normal to inspection Skin no rashes, warm and dry Neurologic patellar DTR's 2+ bilat, sensation intact Results & Data Vital Signs (Past 12 Hours) Vital Signs Temp Pulse Pulse Resp BP BP Pulse Ox 07/30/23 07:55 36.3 C L 79 20 120/82 98 07/30/23 03:40 36.4 C L 77 18 122/79 07/30/23 01:20 36.4 C L 99 H 18 117/77 98 07/30/23 01:10 36.8 C 18 07/30/23 01:06 92 H 113/57 L 07/30/23 01:05 100 H 121/56 L 07/30/23 00:50 90 122/58 L 07/30/23 00:20 18 07/30/23 00:20 95 H 137/56 L 07/30/23 00:08 93 H 126/58 L 07/30/23 00:05 18 07/29/23 23:50 18 07/29/23 23:49 104 H 102/66 07/29/23 23:35 18 07/29/23 23:34 93 H 106/70 O2 Del Method 07/30/23 07:55 Room Air 07/30/23 03:40 07/30/23 01:20 Room Air 07/30/23 01:10 07/30/23 01:06 07/30/23 01:05 07/30/23 00:50 07/30/23 00:20 07/30/23 00:20 07/30/23 00:08 07/30/23 00:05 07/29/23 23:50 07/29/23 23:49 07/29/23 23:35 07/29/23 23:34 Laboratory Results Laboratory Results - last 72 hr 07/29/23 07/30/23 12:38 07:27 WBC 12.49 H 11.05 H RBC 4.44 4.09 L Hgb 11.8 L 10.8 L Hct 35.4 L 32.1 L MCV 79.7 L 78.5 L MCH 26.6 26.4 MCHC 33.3 33.6 RDW Std Deviation 42.4 42.0 RDW Coeff of Jeff 14.7 H 14.9 H Plt Count 283 248 MPV 9.9 9.7 Sodium 135 L Potassium 3.7 Chloride 104 Carbon Dioxide 19 L Anion Gap 12 H BUN 12 Creatinine 0.47 L Est Cr Clr Drug Dosing 251.8 Est GFR ( Amer) > 150.0 Est GFR (Non-Af Amer) 136.3 BUN/Creatinine Ratio 25.5 H Glucose 127 H Calcium 8.5 L Total Bilirubin 0.3 AST 6 L ALT 8 Alkaline Phosphatase 113 H Total Protein 6.9 Albumin 3.6 Globulin 3.3 Albumin/Globulin Ratio 1.1 Blood Type O Positive Antibody Screen NEGATIVE
[2023-07-30] MEDS ORDERED: bisacodyL 5 MG TABEC PO SCH (20:00)
[2023-07-31] MEDS ORDERED: bisacodyL 10 MG SUPP PR PRN
[2023-07-31 06:40] LABS: Hematocrit (blood only) 30.1 % (37.0-47.0); Hemoglobin 10.1 g/dl (12.0-16.0)
[2023-07-31] MEDS: IBUPROFEN 600 MG TAB PO PRN (08:43)
[2023-07-31] MEDS: DOCUSATE SODIUM 100 MG CAP PO SCH (08:43)
[2023-07-31] MEDS: FERROUS SULFATE 325 MG TAB PO SCH (08:43)
[2023-07-31] MEDS: PRENATAL VITAMIN 1 TAB PO SCH (08:43)
[2023-07-31] MEDS: SERTRALINE HCL 100 MG TABLET PO SCH (08:44)
--- NOTE | 2023-07-31 09:19 | Obstetrical Progress Note ---
Date of Service July 31, 2023 Assessment & Plan (1) Normal course: PPD #2 Pt wishes to be discharged home d/c home with instructions Subjective Ambulation: ambulating normally Voiding: no voiding problems Passing Gas:: Yes Diet Tolerance:: regular diet Lochia:: Small Feeding Type:: breast feeding Review of Systems All systems reviewed & are unremarkable except as noted in HPI & below Physical Exam Constitutional WD/WN, vitals as above well developed and well nourished Eyes PERRL, conjunctivae normal, anicteric sclerae Neck trachea midline, no thyromegaly Respiratory normal respiratory effort, lungs clear to auscultation Auscultation: no crackles, no rales and no wheezes Cardiovascular RRR, no murmur, no edema Gastrointestinal (Abdomen) normal bowel sounds, soft, nontender, no hepatosplenomegaly Uterus is below umbilicus Musculoskeletal no cyanosis or clubbing, extremities motor strength 5/5 Skin no rashes, warm and dry Neurologic patellar DTR's 2+ bilat, sensation intact Psychiatric A+Ox3, euthymic affect Genitourinary normal external appearance Results & Data Vital Signs (Past 12 Hours) Vital Signs Temp Pulse Resp BP 07/30/23 23:40 36.4 C L 75 18 123/84
== END 2023-07-31 14:05 | disposition home or self-care (01) | DRG 807 ==
LOC: 4S1 12:08 → 4E2 07-30 01:25